=== PATIENT | male | born 1955 | race Caucasian/White ===

== ENCOUNTER → 2018-04-10 08:44 | Outpatient (CLI) | payer MEDICARE, SELFPAY ==
[2018-04-10 10:01] LABS: CREATININE 1.19 mg/dL (0.70-1.30); Cholesterol 309 mg/dL (50-200); HDL Cholesterol 31 mg/dL (40-60); LDL CHOLESTEROL 193 mg/dL (<100); Triglyceride 302 mg/dL (30-150)
== END ==
PROVIDERS: PCP Nurse Practitioner; Visit Provider Nurse Practitioner
DX: R51 Headache (principal); I25.10 Atherosclerotic heart disease of native coronary artery without angina pectoris; Z13.220 Encounter for screening for lipoid disorders
CPT/HCPCS: 36415; 80061; 83721; 82565

== ENCOUNTER 2019-03-22 09:58 | Outpatient (CLI) | payer MEDICARE, SELFPAY ==
[2019-03-22 10:44] LABS: HGB 14.3 g/dL (13.5-17.5); Mean Corp. HGB Concentration 34.9 g/dL (32.0-36.0); Mean Corpuscular Volume 88.9 fL (80-95); Mean Platelet Volume 11.1 fL (8.0-11.0); Platelet Count 170 x1000/uL (130-400); RBC 4.61 m/cumm (4.50-6.00); RBC Distribution Width 12.4 % (11.8-14.1); White Blood Cell Count 8.18 k/cumm (4.4-10.8)
[2019-03-22 12:46] LABS: ALT 23 U/L (12-78); AST 19 U/L (15-37); Albumin 4.2 g/dL (3.4-5.0); Alkaline Phosphatase 90 U/L (46-116); BUN 19 mg/dL (7-18); Bilirubin, Total 0.4 mg/dL (0.2-1.0); Calcium 9.3 mg/dL (8.5-10.1); Calculated LDL 192 mg/dL; Chloride 103 mmol/L (98-107); Cholesterol 264 mg/dL (50-200); Glucose 99 mg/dL (70-100); HDL Cholesterol 31 mg/dL (40-60); Potassium 4.9 mmol/L (3.5-5.1); Sodium 140 mmol/L (136-145); Total Protein 7.1 g/dL (6.4-8.2); Triglyceride 209 mg/dL (30-150)
== END 2019-03-22 10:18 ==
PROVIDERS: PCP Nurse Practitioner; Visit Provider Nurse Practitioner
DX: E78.00 Pure hypercholesterolemia, unspecified (principal); F32.9 Major depressive disorder, single episode, unspecified; F41.9 Anxiety disorder, unspecified; J44.9 Chronic obstructive pulmonary disease, unspecified; F17.200 Nicotine dependence, unspecified, uncomplicated
CPT/HCPCS: 36415; 80053; 80061; 83721; 85027

== ENCOUNTER 2019-09-19 11:36 | Outpatient (CLI) | payer MEDICARE, SELFPAY ==
--- NOTE | 2019-09-19 12:05 | DI.RAD_ITS ---
EXAM: XR LUMBAR SPINE COMPLETE INDICATION: pain M54.9 DORSALGIA. COMPARISON: LUMBAR SPINE COMPLETE from 05/17/2011 TECHNIQUE: 2D digital imaging was performed. FINDINGS: There is a left convex scoliosis of the lumbar spine. There is no spondylolysis or spondylolisthesis . There is disc space narrowing at L3-L4. Endplate osteophytes are seen from L2-L3 through L5-S1. Degenerative changes of the facets are seen in the lower lumbar spine. No acute fracture or subluxat ion is seen in the lumbar spine. There is atherosclerosis of the abdominal aorta. IMPRESSION: Moderate degenerative changes of the lumbar spine.
[2019-09-19 12:40] LABS: HCT 39.3 % (40.0-50.0); HGB 13.5 g/dL (13.5-17.5); Mean Corp. HGB Concentration 34.4 g/dL (32.0-36.0); Mean Corpuscular Hemoglobin 31.3 pg (27.0-33.0); Mean Platelet Volume 10.6 fL (8.0-11.0); Platelet Count 233 x1000/uL (130-400); RBC 4.32 m/cumm (4.50-6.00); RBC Distribution Width 12.4 % (11.8-14.1); White Blood Cell Count 6.84 k/cumm (4.4-10.8)
[2019-09-19 14:31] LABS: ALT 24 U/L (16-63); AST 30 U/L (15-37); Albumin 4.1 g/dL (3.4-5.0); Alkaline Phosphatase 112 U/L (46-116); Anion Gap 7.4 mmol/L (3-11); BUN 12 mg/dL (7-18); Bilirubin, Total 0.4 mg/dL (0.2-1.0); CO2 30.6 mmol/L (21.0-32.0); Calcium 9.1 mg/dL (8.5-10.1); Chloride 104 mmol/L (98-107); Glucose 113 mg/dL (74-106); Potassium 5.2 mmol/L (3.5-5.1); Sodium 142 mmol/L (136-145); TSH (W/Ref FT4) 1.58 uIU/mL (0.36-3.74); Total Protein 6.8 g/dL (6.4-8.2); Vitamin B12 227 pg/mL (193-986)
== END 2019-09-19 11:56 ==
PROVIDERS: PCP Nurse Practitioner; Visit Provider Nurse Practitioner
DX: M54.5 Low back pain (principal); M51.36 Other intervertebral disc degeneration, lumbar region; M47.816 Spondylosis without myelopathy or radiculopathy, lumbar region; I10 Essential (primary) hypertension; R63.4 Abnormal weight loss; F17.200 Nicotine dependence, unspecified, uncomplicated
CPT/HCPCS: 36415; 80053; 85027; 72110; 82607; 84443

== ENCOUNTER 2019-09-20 06:58 | Outpatient (CLI) | payer MEDICARE, SELFPAY ==
--- NOTE | 2019-09-20 07:57 | ETT_ITS ---
APPROVED REPORT Exam: Exercise Treadmill Patient Location: Out-Patient Room/Bed: Stress Nurse: Samantha Gonzalez RN BMI: 20.77 Baseline Rhythm: Sinus Rhythm Indications: Patient reports he has had SOB with activity for years now which has recently (over the last month) gotten worse and is now associated with dizziness. Medical History Medical History: Depression, Anxiety, PTSD, Gerd, ADD, Lung Nodules. Cardiac Medications: Atorvastatin, Metoprolol Succinate, Prazosin. Allergies: No known drug allergies Cardiac Risk Factors: FHX of CAD, Hyperlipidemia, COPD, Smoking Previous Cardiac Procedures: None Pretest Chest Pain Characteristics: None Exercise History: Sedentary Physical Disabilities: None Lung Sounds: Clear to auscultation Heart Sounds: Regular Stress Test Details Test: Exercise stress testing was performed using a Chay protocol. Rest Stress HR Max Heart Rate (APMHR): 155 bpm Resting HR Supine: 74 bpm Target HR (85% APMHR): 131 bpm Resting HR Standin bpm Max HR Achieved: 152 bpm % of APMHR: 98 HR response to stress: Normal HR response to stress BP Resting BP Supine: 110/70 mmHg Resting BP Standin/64 mmHg Max BP: 138/80 mmHg BP response to stress: Blunted BP response during exercise, normal BP response during recovery ECG Resting ECG: Sinus Rhythm ST Change: Normal Ectopy: Rare PAC's and Rare PVC's Stress ECG: Sinus Tachycardia ST Change: Normal Arrhythmia: None Recovery ECG: Sinus Rhythm Recovery ST Change: Normal Recovery Arrhythmia: None Clinical Reason for Termination: Dyspnea Stress Symptoms: None Exercise duration: 9 min15 sec Highest Stage Achieved: Stage 4: 4.2 mph at 16% grade. Exercise capacity: 10.55 METs Functional Capacity: Average Capacity Stress ECG Conclusion 1. She exercised for 9 minutes (10.5 METS). Exercise was stopped due to dyspnea. 2. Patient reached 98% of his predicted heart rate. Rate-pressure product was 16,000 3. There is no evidence of ischemia at this level of stress. 4. The Connor Score (8) estimates an annual cardiovascular mortality of 0% and a five year survival of 95%. Using the Cononr Score there is a low probability of any angiographic coronary disease. Protocol Used: Chay Protocol Stress Test Summary STAGE Time (mins) Speed (mph) Grade (%) HR BP SYMPTOMS METS Supine 74 110/70 Standing 89 108/64 1 3 1.7 10 105 106/60 4.6 2 6 2.5 12 118 108/60 7 3 9 3.4 14 141 110/64 10.2 4 12 4.2 16 12.9 5 15 5.0 18 17.2 1 min recovery 132 132/60 3 min recovery 98 138/80 6 min recovery 85 110/70
== END 2019-09-20 07:18 ==
PROVIDERS: PCP Nurse Practitioner; Visit Provider Nurse Practitioner
DX: R06.02 Shortness of breath (principal); R06.09 Other forms of dyspnea; R42 Dizziness and giddiness; I10 Essential (primary) hypertension; E78.00 Pure hypercholesterolemia, unspecified; F41.9 Anxiety disorder, unspecified; F17.220 Nicotine dependence, chewing tobacco, uncomplicated; Z82.49 Family history of ischemic heart disease and other diseases of the circulatory system
CPT/HCPCS: 93016; 93018; 93017

== ENCOUNTER → 2019-10-11 11:28 | Outpatient (BNVA) | payer MEDICARE, SELFPAY | PROVIDERS: PCP Nurse Practitioner; Referring Provider Nurse Practitioner; Visit Provider Physical Therapy Assistant | DX: Z12.11 Encounter for screening for malignant neoplasm of colon (principal); Z86.010 Personal history of colon polyps; J44.9 Chronic obstructive pulmonary disease, unspecified; F17.210 Nicotine dependence, cigarettes, uncomplicated ==

== ENCOUNTER 2019-10-12 01:48 | Outpatient (CLI) | payer MEDICARE, SELFPAY ==
--- NOTE | 2019-10-12 10:28 | DI.US_ITS ---
APPROVED REPORT EXAM: Comprehensive 2D, Doppler, and color-flow Echocardiogram [place] Tender Helper: Kary Chamorro RDCS (AE) Indications: SANCHEZ Conclusion Normal left ventricular wall thickness and chamber size. Estimated ejection fraction is 55 to 60%. No segmental wall motion abnormalities No chamber enlargement No structural or valvular abnormalities noted Wall motion Left Ventricle The left ventricle is grossly normal size. Left ventricular systolic function is normal. There is nor mal left ventricular wall thickness. There is normal LV segmental wall motion. Stage I diastolic dysf unction LVEF is 55-60%. Right Ventricle The right ventricle is normal size. Right ventricular systolic function could not be assessed. Atria The left atrium size is normal. The right atrium size is normal. Aortic Valve The aortic valve is not well visualized. Aortic valve is probably trileaflet. There is no aortic valv ular stenosis. No aortic regurgitation is present. Mitral Valve The mitral valve is normal in structure. Trace mitral regurgitation. Tricuspid Valve Tricuspid valve is grossly normal in structure and function. Mild tricuspid regurgitation. Great Vessels Aortic root is normal in size. Pericardium No pericardial effusion. 2D Dimensions IVSD d PLAX 0.66 cm M: 0.6-1.2 LV Vol A2C d MOD 98.5 mL LVPW d PLAX 0.68 cm M: 0.6 - 1.2 LV Vol A4C d MOD 83.3 mL LVID d PLAX 4.48 cm M: 4.2 - 5.8 LA vol/ BSA A2C s A-L 12.0 mL/m2 LVDs 3.20 cm M: 2.5 - 4.0 LA vol/ BSA A4C s A-L 14.9 mL/m2 Ao Root d 3.14 cm M: 3.1 - 3.7 LA Vol/ BSA Biplane s A-L 14.2 mL/m2 RA Area A4C 8.82 cm2 LA Area A4C s MOD 12.17 cm2 RA Vol/ BSA A4C s A-L 10.2 mL/m2 LA Area A2C s MOD 10.25 cm2 LV EF Teichholz 53.9 % LV EF A4C MOD 60.6 % LVEF (Ferrer's) 58.52 % M: 52 - 72 LV EF A2C MOD 57.9 % LV Volume 70.02 mL M: 62 - 150 LV EF Biplane MOD 58.5 % LV Volume Index 37.24 mL/m2 M: 34 - 74 LV Vol Biplane MOD 91.5 mL FS 27.65 % LV Diastology E/A Ratio 1.0 MV E Vmax 0.67 (0.4-1.3 m/s) MV A Vmax 0.70 (0.4-1.3 m/s) MV E/A Ratio 0.92 Aortic Valve LVOT Area 3.00 cm2 AoV Area Vmax 2.15 cm2 LVOT Vmax 0.77 m/s AoV Area/ BSA (Vmax) 1.14 cm2/m2 LVOT Mean Daren. 0.51 m/s SAMANTHA Mean Daren. 2.11 cm2 LVOT Peak Grad 2.4 mmHg SAMANTHA Mean Daren. Index 1.12 cm2/m2 LVOT Mean Grad 1.2 mmHg LVOT VTI 0.170 m LVOT Diam s 1.95 cm (M/F) 1.5-2.5 AoV Vmax 1.08 (0.5-1.3 m/s) Velocity Ratio 0.71 AoV Mean Daren. 0.72 m/s AoV Peak Grad 4.6 mmHg LVOT SV 51.10 mL AoV Mean Grad 2.4 (<5 mmHg) AoV VTI 0.198 (0.18-0.25 m) AoV Area VTI 2.59 (2.5-4.5 cm2) AoV Area/ BSA (VTI) 1.37 cm/m2 Mitral Valve MV DT 228 (160-240 msec) MV PHT 66 msec MV Area PHT 3.33 cm2 MV VTI 0.227 m MV Area VTI 2.26 (4.0-6.0 cm2) Pulmonary Valve PV Vmax 0.69 (0.5-1.5 m/s) RVOT Peak Gr. 0.84 mmHg PV Peak Grad 1.9 mmHg RVOT Mean Gr. 0.50 mmHg PV Mean Grad 1.1 mmHg RVOT VTI 0.110 m PV VTI 0.140 m RVOT Vmax 0.46 m/s Tricuspid Valve TR Peak Grad 23.9 mmHg TR Vmax 2.44 m/s RA Pressure 3.00 mmHg RVSP (TR) 26.9 mmHg
== END 2019-10-12 02:08 ==
PROVIDERS: PCP Nurse Practitioner; Visit Provider Nurse Practitioner
DX: R06.09 Other forms of dyspnea (principal); F17.200 Nicotine dependence, unspecified, uncomplicated; F41.9 Anxiety disorder, unspecified; F32.1 Major depressive disorder, single episode, moderate
CPT/HCPCS: 93306

== ENCOUNTER 2019-11-01 06:03 | Day surgery (SDC) | payer MEDICARE, SELFPAY ==
[2019-11-01 06:33] VITALS: BP 111/73; PULSE 93; RESP 16; TEMP 36.4; O2SAT 98
[2019-11-01] MEDS: Lactated Ringers 1,000 ML 80 ML IV (06:50)
--- NOTE | 2019-11-01 07:49 | BOWEL_PTH ---
PATIENT: Robby Mirza JR LOC: [facility] U#:[id number] AGE/SX: 63/M ROOM: RE11/01/[address]: Sharlene Rubalcava : 1955 BED: DIS: 11/01/2019 SPEC #: [id number] RECD: 11/01/19 12:32 STATUS: KORTNEY REQ #: [id number] VINEET: 11/01/19 07:[address]: Sharlene Rubalcava DEPT: Surgical Specimen RECD BY: Maren Robert ENTERED: 11/01/19 12:33 SP TYPE: Bowel OTHR DR: Renae Portillo APRN Tissues: 1 - BIOPSY BOWEL 2 - BIOPSY BOWEL 3 - BIOPSY BOWEL Procedures: GROSS AND MICRO LEVEL 4 Comments: [id number]
--- NOTE | 2019-11-01 08:30 | W.PM.DSUDISC ---
Discharge Plan Disposition Patient Disposition: HOME Condition: Good Discharge Details Reason For Visit: colon scope Attending Provider: Sharlene Rubalcava Primary Care Provider: Renae Portillo Home Meds and New Rx's Prescriptions: Continued dextroamphetamine-amphetamine [Adderall] 30 mg tablet 30 mg PO BID MDD 60 Qty: 60 RF: 0 prazosin 1 mg capsule See Rx Instructions PO QHS Qty: 120 RF: 2 clonazepam 1 mg tablet 1 mg PO HS Qty: 90 RF: 1 lactulose 10 gram/15 mL (15 mL) solution 20 gm PO BID PRN (Reason: constipation) Qty: 750 RF: 0 omeprazole 40 mg capsule,delayed release(DR/EC) 40 mg PO DAILY Qty: 30 RF: 4 albuterol sulfate 2.5 MG/3 ML solution for nebulization 1 vial Inhalation Q4H PRN Qty: 120 RF: 0 fluticasone propion-salmeterol [Advair Diskus] 1 EACH blister with device 1 puff Inhalation BID Qty: 1 RF: 12 Arnuity Ellipta 200 MCG blister with device 200 mcg Inhalation BID RF: 0 albuterol sulfate [ProAir HFA] 8.5 GM HFA aerosol inhaler 2 puff Inhalation Q4H PRN Qty: 3 RF: 3 Metoprolol Succinate 50 MG TAB.ER.24H 50 mg PO DAILY Qty: 30 RF: 3 calcium carbonate [Tums] 200 MG tablet,chewable 1 - 2 tab PO PRN PRNRF: 0 atorvastatin 40 mg tablet 40 mg PO HS RF: 0 Discontinued polyethylene glycol 3350 17 gram/dose powder 238 gm PO ONCE Qty: 238 RF: 0 bisacodyl [Dulcolax (bisacodyl)] 5 mg tablet,delayed release (DR/EC) 5 mg PO ONCE Qty: 4 RF: 0 Discharge Instructions Instructions: High Fiber Diet (GEN) Additional Instructions: Findings: mult polyps no ASA/NSAID's for 14 days Follow up: will send a letter in 2-3 wks w/ pathology results and when to repeat the scope Please call if you develop: fevers >101.5 Nausea or Vomiting Abdominal pain that is not transient DAY SURGERY UNIT POST COLONOSCOPY INSTRUCTIONS 1. Because there will be medication in your system for the next 24 hours, you may feel a little sleepy. Your coordination will be affected. Therefore: a. Do not drive or operate dangerous equipment for 24 hours. b. Do not drink alcohol beverages for 24 hours (not even beer). c. Plan to go home and rest for the day. 2. Generally there are no restrictions on your activity after a day or so has gone by, but you may feel a bit fatigued for a few days. 3 After you arrive home you may have a light meal and return to a normal diet as you can tolerate it without feeling sick to your stomach. 4. After surgery, you may feel pain or discomfort. This should be only transient, but if it persists please contact your doctor. 5. If there are any questions regarding the findings of your procedure, please feel free to contact your doctor. 6. If you are unable to contact your doctor with a problem, contact the hospital at [phone]. 7. Continue all your regular medications unless directed otherwise. I understand the above instructions and have no questions. Signature of Patient or Responsible Adult Escort Date/Time Name of Responsible Adult Escort Signature of Nurse Date/Time Activity:: No lifting over 20 pounds or strenuous activity x24 hours Diet:: Small light meals x24 hours Discharge Orders Discharge Orders: Discharge Order (Routine); Ordered 11/01/19 Ordered By: Sharlene Rubalcava DS: Diagnosis Discharge Diagnosis (1) Gastroesophageal reflux disease: Status: Acute (2) Colorectal polyps: Status: Acute
--- NOTE | 2019-11-01 08:36 | W.COLOREPORT ---
Date of service: 11/01/19 Time of Service: 08:36 Colonoscopy Report Date of procedure: 11/01/19 Pre-op diagnosis general: hx of polyps Post-op diagnosis procedure note: other (mult polyps ) Procedure: CE w/ mult polypectomy Surgeon: Sharlene Rubalcava Anesthesia proc note operative: GETA Estimated blood loss (mL): 2 Pathology: other Complications: None Disposition: same day Prep: Miralax/Dulcolax Retraction Time: 15 mins Procedure Description: After informed consent was obtained the patient was taken to the procedure room and placed in a left decubitous position. Monitors were applied and a time out was done. The patients name, date of , procedure, allergies to medications and metal in their body was reviewed. The patient was then sedated. Once sedated and comfortable a rectal exam was done. External exam was grade II ext hemorrhoids . Internal exam revealed a normal sphincter tone and no palpable masses and grade II internal hemorrhoids. The prostate none The scope was then introduced and retrofelexed. The scope was then advanced to the cecum w/out difficulty. The TI and appendiceal orifice were identified. The prep was good. The scope was then slowly retracted over 15 minutes back into the rectum. Polyps were removed at rectum- x9. polyps in sigmoid at 30cm- x1 and 20cm x4. These are removed w/ hot focept. . The scope was removed and the patient was woken up and taken back to Same day surgery in stable condition. The patient tolerated the procedure well and there were no immediate complications. Follow up: The patient should follow up in [3-5 years- path pd unless they develop changes in bowel habits or other new gastrointestinal complaints.
[2019-11-01 09:04] VITALS: BP 101/60; PULSE 83; RESP 16; TEMP 36.4; O2SAT 98
== END 2019-11-01 09:16 | disposition home or self-care (01) ==
PROVIDERS: PCP Nurse Practitioner; Visit Provider Surgery
PROC: 0DJD8ZZ Inspection of Lower Intestinal Tract, Via Natural or Artificial Opening Endoscopic (ICD-10-PCS; CPT 45378; principal; 2019-11-01 07:30)
DX: Z12.11 Encounter for screening for malignant neoplasm of colon (principal); K63.5 Polyp of colon; K62.1 Rectal polyp; Z87.19 Personal history of other diseases of the digestive system; J44.9 Chronic obstructive pulmonary disease, unspecified; K21.9 Gastro-esophageal reflux disease without esophagitis
CPT/HCPCS: 45384; 88305; J2001; J2704

== ENCOUNTER 2020-02-08 11:55 | Outpatient (CLI) | payer MEDICARE, SELFPAY ==
[2020-02-09 02:23] LABS: COVID-19 RT-PCR UVMMC Result Negative (Negative)
== END 2020-02-08 12:15 ==
PROVIDERS: PCP Nurse Practitioner; Visit Provider Family Medicine
DX: R05 Cough (principal)
CPT/HCPCS: U0003

== ENCOUNTER 2020-11-13 18:37 | Outpatient (REF) | payer MEDICARE, SELFPAY ==
[2020-11-14 14:50] LABS: COVID-19 RT-PCR UVMMC Result Negative (Negative)
== END 2020-11-13 18:38 | disposition home or self-care (01) ==
LOC: LBN 18:37
PROVIDERS: PCP Nurse Practitioner; Visit Provider Family Medicine
DX: Z20.822 Contact with and (suspected) exposure to COVID-19 (principal); J02.9 Acute pharyngitis, unspecified
CPT/HCPCS: U0003

== ENCOUNTER 2021-02-25 13:51 | Outpatient (CLI) | payer MEDICARE, SELFPAY ==
--- NOTE | 2021-02-25 13:45 | RT.EKG_ITS ---
APPROVED REPORT Exam: Resting ECG Reason for Exam: Baseline for therapeutic drug monitoring Patient Location: O HR:103 bpm ECG Measurements Heart Rate 103 AXIS AR 126 P 79 QRSd 96 QRS 87 QT 334 T 57 QTc 437 Conclusion Sinus tachycardia...rate> 99 Probable left atrial enlargement...P >50mS, <-0.10mV V1
== END 2021-02-25 13:52 | disposition home or self-care (01) ==
LOC: DI.KIM 13:54
PROVIDERS: PCP Nurse Practitioner; Visit Provider Nurse Practitioner
DX: Z51.81 Encounter for therapeutic drug level monitoring (principal)
CPT/HCPCS: 93010

== ENCOUNTER → 2021-05-28 11:12 | Outpatient (CLI) | payer MEDICARE, SELFPAY ==
--- NOTE | 2021-05-28 10:45 | DI.RAD_ITS ---
Exam(s) XR RIBS BI INCLUDE CHEST EXAM: XR RIBS BI INCLUDE CHEST CLINICAL HISTORY: pain w/inspiration after metal tool hit chest, PAINFUL RESPIRATION, BLUNT TECHNIQUE: 2D digital imaging was performed. COMPARISON: CR CHEST 2 VIEWS PA,LAT from 03/16/2017 CR CHEST 2 VIEWS PA,LAT from 03/16/2017 FINDINGS: MEDIASTINUM: Normal. HEART: Normal. PULMONARY VASCULATURE: Normal. LUNGS: Clear. PLEURAL SPACE: No pleural effusion or pneumothorax. BONE:Normal. BILATERAL RIBS: Normal. OTHER FINDINGS:Normal. IMPRESSION: 1. No acute pulmonary findings. 2. Unremarkable ribs. DATA REPOSITORY: RADIATION DOSE DELIVERED:
--- OUTSIDE RECORDS SUMMARY | 2021-05-28 11:17 | XMS_ITS ---
:1955 Author Care Team Providers Name Role Phone MEGHNA WELLS Primary Care Provider [phone] Allergies Code Code System Name Reaction Severity Status Onset NKDA ? Medications Name Status Start Date Stop Date ? ? Advair Diskus 500 mcg-50 mcg/dose Completed ? 07/26/2018 powder for inhalation Arnuity Ellipta 200 mcg/actuation powder for inhalation Complete d 07/25/2017 08/08/2017 1 (one) Inhalation: bid - twice daily atorvastatin 40 mg tablet Active ? Not av ailable azithromycin 250 mg tablet Active ? Not a vailable azithromycin 500 mg tablet Completed 02/13/201602/26 1 (one) Tablet: daily Bactrim DS 800 mg-160 mg tablet Completed 01/02/2016 01/12/2016 1 (one) Tablet: bid - twice daily bisacodyl 5 mg tablet,delayed release Active ? Not available TK PER COLONOSCOPY INSTRUCTIONS clonazepam 1 mg tablet Active ? Not avail able TAKE 1 TABLET BY MOUTH AT BEDTIME dextroamphetamine-amphetamine 10 Completed ? 01/25/2018 mg tablet dextroamphetamine-amphetamine 20 Active ? Not available mg tablet dextroamphetamine-amphetamine 30 Active ? Not available mg tablet famciclovir 500 mg tablet Completed ? 2017 Incruse Ellipta 62.5 mcg/actuation powder for inhalation Complet ed 02/13/2016 03/26/2016 1 (one) Inhalation: daily lactulose 10 gram/15 mL oral solution Active ? Not available TK 30ML PO BID PRF CONSTIPATION levofloxacin 500 mg tablet Active ? Not a vailable methylprednisolone 4 mg tablets in Active ? Not available a dose pack metoprolol succinate ER 50 mg Active ? No t available tablet,extended release 24 hr nicotine 21mg/24hr-14mg/24hr-7mg/24hr daily transderm patches,sequentl Completed 02/13/2016 04/16/2016 1 (one) Kit Kit: as directed omeprazole 40 mg capsule,delayed release Active ? Not available TAKE 1 CAPSULE BY MOUTH ONCE DAILY oxycodone-acetaminophen 5 mg-325 mg tablet Active ? Not available TK 1 T PO TID PRN P. MDD 3 TS polyethylene glycol 3350 17 Active ? Not available gram/dose oral powder prazosin 1 mg capsule Active ? Not availa ble prednisone 10 mg tablet Active ? Not avai lable prednisone 20 mg tablet Completed ? 01/26/20 18 Spiriva with HandiHaler 18 mcg and Completed ? 09/01/2020 inhalation capsules Trelegy Ellipta 100 mcg-62.5 mcg-25 mcg powder for inhalation Ac tive ? Not available Inhale 1 puff every day by inhalation route. Ventolin HFA 90 mcg/actuation aerosol inhaler Active ? Not available INHALE 2 PUFFS BY MOUTH EVERY 4 HOURS NEEDED Vyvanse 40 mg capsule Completed ? 01/25/2018 Vyvanse 60 mg capsule Completed ? 01/25/2018 Problems Name Status Onset Date Source ? Smoker Active 07/26/2018 ? Sinusitis Active ? History Chronic Obstructive Lung Disease Active ? History Procedure by Method Active ? History Procedures Date Name Performed by ? 01/25/2018 LDCT, Chest, for Lung Cancer [facility] Radiology (Internal) Screening [address], [place] [id number] (Work Place) 07/26/2018 LDCT, Chest, for Lung Cancer [facility] Radiology (Internal) Screening [address] [place] [address] (Work Place) 06/04/2019 LDCT, Chest, for Lung Cancer [facility] Radiology (Internal) Screening [address] [place] [address] (Work Place) 08/08/2019 LDCT, Chest, for Lung Cancer [facility] Radiology (Internal) Screening [address] [place] [address] (Work Place) 06/27/2020 LDCT, Chest, for Lung Cancer [facility] Radiology (Internal) Screening [address], [place] [id number] (Work Place) 09/01/2020 LDCT, Chest, for Lung Cancer [facility] Radiology (Internal) Screening [address], [place] [id number] (Work Place) Results Lab Results Date Name Specimen Result Interpretation Description Value Range Status Address ? 08/25/2018 Lipid S High Chol 284 50-200 Final [place] Panel, mg/dL mg/dL Hospital L ab Serum (Internal) : [address] ? ? S High Trig 229 10-150 Final [place] [facility] mg/dL mg/dL Hospital [facility] (Internal) : [address] ? ? S Low Hdl 35 mg/dL 40-60 [place] mg[facility]dL [facility] (Internal) : [address] ? ? S High Ldl 203 0-130 Final [place] [facility] mg/dL mg/dL Hospital L [facility] (Internal) : [address] 08/25/2018 CMP, Serum S - g/r 92 mg/dL 74-106 Final [place] or Plasma mg/dL Hospita l Lab (Internal) : [address] ? ? S - Bun 17 mg/dL 9-20 Final [place] mg/dL [facility] L [facility] (Internal) : [address] ? ? S - Crea 1.00 0.66-1.25 [place] mg/dL mg/dL Hospital L [facility] (Internal) : [address] ? ? S - Ca 9.4 8.4-10.2 Final [place] mg/dL mg/dL Hospital L [facility] (Internal) : [address] ? ? S - Na 140 137-145 Final [place] mmol/L mmol/L Hospital L [facility] (Internal) : [address] ? ? S - K 4.3 3.5-5.1 Final [place] mmol/L mmol/L Hospital L ab (Internal) : [address] ? ? S - Cl 101 98-107 Final [place] mmol/L mmol/L Hospital L [facility] (Internal) : [address] ? ? S - Tco2 29.0 22.0-30.0 [place] mmol/L mmol/L Hospital L ab (Internal) : [address] ? ? S - Tp 7.1 g/dL 6.3-8.2 Final [place] g/dL Hospital L [facility] (Internal) : [address] ? ? S - Alb 4.3 g/dL 3.5-5.0 Final [facility]ry g/dL Hospital L ab (Internal) : [address] ? ? S - Tbil 0.6 0.2-1.3 Final [facility] ntry mg/dL mg/dL Hospital L ab (Internal) : [address] ? ? S - Alp 66 U/L 38-126 Final [place] try U/L Hospital L ab (Internal) : [address] ? ? S - Alt 21 U/L 21-72 U/L Final [facility] ([facility] Hospital L ab (Internal) : [address] ? ? S - Ast 27 U/L 17-59 U/L Final [facility] ([facility] Hospital L ab (Internal) : [address] 01/25/2018 Creatinine S - Crea 1.00 0.66-1.25 Final [facility] , Serum or mg/dL mg/dL Hospit al Lab Plasma (Internal) : [address] 01/25/2018 Creatinine S - Crea 1.00 0.66-1.25 Final [facility] , Serum or mg/dL mg/dL Hospit al Lab Plasma (Internal) : [address] Past Encounters 09/01/2020 Chronic Obstructive Lung Disease; Smoker Lizzette Suh MD: [address] [place] [address], Ph. Social History Tobacco Smoking Status Current Every Day Smoker Notes: 1 pack every 3 days Vaccine List Vaccine Type influenza, high-dose, quadrivalent 10/02/2020?0.7 mL influenza, injectable, quadrivalent 07/19/2017 07/24/2018 influenza, seasonal, injectable, preserv ative free 07/19/2016?0.5 mL influenza, trivalent, adjuvanted 07/25/2019 pneumococcal conjugate PCV 13 03/18/2016 08/08/2019?0.5 mL pneumococcal polysaccharide PPV23 05/06/2014 09/01/2020?0.5 mL Tdap 03/28/2019?0.5 mL Plan of Care Reminders Provider Appointments None ? ? recorded. Lab None ? ? recorded. Referral None ? ? recorded. Procedures None ? ? recorded. Surgeries None ? ? recorded. Imaging None ? ? recorded. Vitals 09/01/2020 09:30AM Follow Up 30 Weight Blood Pressure 71.4 kg 120/70 mm[Hg] 08/08/2019 09:00AM Follow Up 30 Weight Blood Pressure 70.5 kg 118/70 mm[Hg] 07/26/2018 09:30AM Follow Up 30 Height Weight BMI Blood Pressure 182.88 cm 76.6 kg 22.9 kg/m2 110/70 mm[Hg] 01/25/2018 09:30AM Follow Up 30 Height Weight BMI Blood Pressure 182.88 cm 74.39 kg 22.2 kg/m2 110/60 mm[Hg] 07/25/2017 Height Weight Blood Pressure 182.88 cm 74.11 kg 110/70 mm[Hg] 06/20/2017 Weight Blood Pressure 70.82 kg 100/70 mm[Hg] 11/25/2016 Height Weight Blood Pressure 180.34 cm 72.12 kg 110/70 mm[Hg] 07/19/2016 Height Weight Blood Pressure 182.88 cm 74.84 kg 110/70 mm[Hg] 03/26/2016 Weight Blood Pressure 73.48 kg 110/70 mm[Hg] 02/13/2016 Height Weight Blood Pressure 177.8 cm 75.55 kg 112/60 mm[Hg] 02/04/2016 Height Weight Blood Pressure 177.8 cm 76.2 kg 118/74 mm[Hg] 01/02/2016 Height Weight Blood Pressure 177.8 cm 77.11 kg 118/76 mm[Hg]
== END ==
PROVIDERS: PCP Nurse Practitioner; Visit Provider Nurse Practitioner
DX: R07.1 Chest pain on breathing (principal); S29.8XXA Other specified injuries of thorax, initial encounter; X58.XXXA Exposure to other specified factors, initial encounter
CPT/HCPCS: 71046; 71110

== ENCOUNTER 2021-05-28 11:31 | Outpatient (REF) | payer MEDICARE, SELFPAY ==
[2021-05-28 19:00] LABS: ALT 26 U/L (16-63); AST 22 U/L (15-37); Albumin 4.1 g/dL (3.4-5.0); Alkaline Phosphatase 92 U/L (46-116); Anion Gap 8.1 mmol/L (3-11); BUN 10 mg/dL (7-18); Bilirubin, Total 0.4 mg/dL (0.2-1.0); CO2 29.9 mmol/L (21.0-32.0); CREATININE 0.9 mg/dL (0.70-1.30); Calcium 9.3 mg/dL (8.5-10.1); Calculated LDL 160 mg/dL (<100); Chloride 104 mmol/L (98-107); Cholesterol 231 mg/dL (<200); Glucose 99 mg/dL (74-106); HDL Cholesterol 40 mg/dL (40-60); Potassium 4.7 mmol/L (3.5-5.1); Sodium 142 mmol/L (136-145); Total Protein 7.1 g/dL (6.4-8.2); Triglyceride 158 mg/dL (<150)
[2021-05-28 19:13] LABS: HCT 39.6 % (40.0-50.0); HGB 13.1 g/dL (13.5-17.5); MCH 30.8 pg (27.0-33.0); MCHC 33.1 % (32.0-36.0); MPV 11.4 fL (8.0-11.0); Platelet Count 206 10^3/uL (130-400); RBC 4.26 10^6/uL (4.36-5.78); RDW 12.3 % (11.8-14.1); RDW-SD 42.1 fL; WBC 8.76 10^3/uL (4.4-10.8)
== END 2021-05-28 11:32 | disposition home or self-care (01) ==
LOC: LBN 11:31
PROVIDERS: PCP Nurse Practitioner; Visit Provider Nurse Practitioner
DX: E78.00 Pure hypercholesterolemia, unspecified (principal); F17.200 Nicotine dependence, unspecified, uncomplicated; F32.9 Major depressive disorder, single episode, unspecified; J44.9 Chronic obstructive pulmonary disease, unspecified
CPT/HCPCS: 80053; 80061; 85027

== ENCOUNTER 2022-02-15 09:05 | Outpatient (CLI) | payer MEDICARE, SELFPAY ==
--- NOTE | 2022-02-15 09:00 | RT.EKG_ITS ---
APPROVED REPORT Exam: Resting ECG Reason for Exam: medication monitoring Patient Location: O HR:87 bpm ECG Measurements Heart Rate 87 AXIS NH 141 P 80 QRSd 100 QRS 79 QT 361 T 56 QTc 434 Conclusion Sinus rhythm...normal P axis, V-rate 60- 99
== END 2022-02-15 09:06 | disposition home or self-care (01) ==
LOC: DI.KIM 09:07
PROVIDERS: PCP Nurse Practitioner; Visit Provider Nurse Practitioner
DX: Z51.81 Encounter for therapeutic drug level monitoring (principal)
CPT/HCPCS: 93010

== ENCOUNTER 2022-02-23 02:45 | Outpatient (CLI) | payer MEDICARE, SELFPAY ==
[2022-02-23 09:12] LABS: HCT 41.3 % (40.0-50.0); HGB 14.4 g/dL (13.5-17.5); MCH 31.6 pg (27.0-33.0); MCHC 34.9 % (32.0-36.0); MCV 91 fL (80-95); MPV 10.9 fL (8.0-11.0); Platelet Count 189 10^3/uL (130-400); RBC 4.55 10^6/uL (4.36-5.78); WBC 8.16 10^3/uL (4.4-10.8)
[2022-02-23 09:50] LABS: ALT 26 U/L (16-63); AST 22 U/L (15-37); Alkaline Phosphatase 93 U/L (46-116); Anion Gap 4.8 mmol/L (3-11); BUN 24 mg/dL (7-18); Bilirubin, Total 0.3 mg/dL (0.2-1.0); CO2 31.2 mmol/L (21.0-32.0); Calcium 9.1 mg/dL (8.5-10.1); Calculated LDL 178 mg/dL (<100); Chloride 101 mmol/L (98-107); Cholesterol 252 mg/dL (<200); Glucose 104 mg/dL (74-106); HDL Cholesterol 40 mg/dL (40-60); Potassium 4.6 mmol/L (3.5-5.1); Sodium 137 mmol/L (136-145); Total Protein 7.5 g/dL (6.4-8.2); Triglyceride 174 mg/dL (<150)
== END 2022-02-23 02:46 | disposition home or self-care (01) ==
LOC: LBO 02:45
PROVIDERS: PCP Nurse Practitioner; Visit Provider Nurse Practitioner
DX: E78.00 Pure hypercholesterolemia, unspecified (principal); F17.210 Nicotine dependence, cigarettes, uncomplicated; F98.8 Other specified behavioral and emotional disorders with onset usually occurring in childhood and adolescence; J44.9 Chronic obstructive pulmonary disease, unspecified
CPT/HCPCS: 36415; 80053; 80061; 85027

== ENCOUNTER 2022-08-04 08:24 | Outpatient (CLI) | payer MEDICARE, SELFPAY ==
--- NOTE | 2022-08-04 08:15 | RT.EKG_ITS ---
APPROVED REPORT Exam: Resting ECG Reason for Exam: chest pain Patient Location: O HR:89 bpm ECG Measurements Heart Rate 89 AXIS UT 140 P 79 QRSd 104 QRS 82 QT 366 T 63 QTc 446 Conclusion Sinus rhythm...normal P axis, V-rate 50- 99 Borderline right axis deviation...QRS axis ( 81, 90) Minimal ST elevation, anterior leads...ST >0.10mV, V1-V4
== END 2022-08-04 08:25 | disposition home or self-care (01) ==
LOC: DI.KIM 08:26
PROVIDERS: PCP Nurse Practitioner; Visit Provider Nurse Practitioner
DX: R07.9 Chest pain, unspecified (principal)
CPT/HCPCS: 93010

== ENCOUNTER 2022-08-04 12:51 | Outpatient (CLI) | payer MEDICARE, SELFPAY ==
--- NOTE | 2022-08-04 09:13 | DI.RAD_ITS ---
Exam(s) XR LUMBAR SPINE COMPLETE EXAM: XR LUMBAR SPINE COMPLETE CLINICAL HISTORY: Low back pain s/p fall last week W19.XXXA, M54.50 TECHNIQUE: COMPARISON: No exams were available for comparison FINDINGS: Five views were obtained. There is a mild biconvex thoracolumbar scoliosis. There is disc space anthony rowing at L3-4 with sclerotic changes of the adjacent endplates particularly on the right, presumably related to the scoliotic deformity. There are moderate hypertrophic endplate changes throughout the lumbar spine. There is no evidence of acute fracture or dislocation. There is no evidence of spond ylolysis or spondylolisthesis. IMPRESSION: Moderate degenerative changes of the lumbosacral spine. RADIATION DOSE DELIVERED: Total DLP
== END 2022-08-04 13:11 ==
LOC: DI 12:54
PROVIDERS: PCP Nurse Practitioner; Visit Provider Nurse Practitioner
DX: M54.59 Other low back pain (principal); Z91.81 History of falling; M51.37 Other intervertebral disc degeneration, lumbosacral region; M41.26 Other idiopathic scoliosis, lumbar region
CPT/HCPCS: 72110

== ENCOUNTER 2022-08-13 00:23 | Outpatient (CLI) | payer MEDICARE, SELFPAY ==
--- NOTE | 2022-08-13 07:31 | DI.US_ITS ---
APPROVED REPORT EXAM: Comprehensive 2D, Doppler, and color-flow Echocardiogram Patient Location: Out-Patient [employer] Cutter: Kary Chamorro RDCS (AE) Indications: non exertional chest pain Other Information Study Quality: Fair. Technically limited study due to body habitus smoker. Conclusion Normal left ventricular wall thickness and chamber size. Estimated ejection fraction is 55%. Wall m otion appears normal Normal right ventricular size and systolic function Both atria are normal in size There is no structural or hemodynamically significant valvular disease Wall motion Left Ventricle The left ventricle is normal size. The left ventricular systolic function is normal. The left ventric ular ejection fraction is within the normal range. There is normal left ventricular wall thickness. N o segmental wall motion abnormalities were noted There is no ventricular septal defect visualized. LV EF is 55%. Right Ventricle The right ventricle is normal size. The right ventricular systolic function is normal. Atria The left atrium size is normal. The right atrium size is normal. The interatrial septum is intact wit h no evidence for an atrial septal defect. Aortic Valve The aortic valve is normal in structure. Aortic valve is trileaflet. There is no aortic valvular sten osis. No aortic regurgitation is present. Mitral Valve The mitral valve is normal in structure. No evidence of mitral valve stenosis. Trace mitral regurgita tion. Tricuspid Valve The tricuspid valve is normal in structure. There is no tricuspid valve stenosis. Trace tricuspid reg urgitation. Pulmonic Valve The pulmonary valve is normal in structure. There is no pulmonic valvular stenosis. There is no pulmo neeru valvular regurgitation. Great Vessels The aortic root is normal in size. Ascending aorta is not well visualized. Aortic arch is normal in c aliber. IVC is normal in size and collapses >50% with inspiration. Pericardium There is no pericardial effusion. 2D Dimensions IVSD d PLAX 0.65 cm M: 0.6-1.2 LV Vol A2C d MOD 132.0 mL LVPW d PLAX 0.67 cm M: 0.6 - 1.2 LV Vol A4C d MOD 81.5 mL LVID d PLAX 4.77 cm M: 4.2 - 5.8 LA vol/ BSA A4C s A-L 11.1 mL/m2 LVDs 3.45 cm M: 2.5 - 4.0 LA Area A4C s MOD 10.55 cm2 LV EF Teichholz 53.0 % LV EF A4C MOD 50.1 % LVEF (Ferrer's) 48.63 % M: 52 - 72 LV EF A2C MOD 50.6 % LV Volume 80.14 mL M: 62 - 150 LV EF Biplane MOD 48.6 % LV Volume Index 41.09 mL/m2 M: 34 - 74 SV 51.50 mL LV Vol Biplane MOD 105.9 mL SV Index 26.44 mL/m2 FS 27.20 % LV Diastology MV E' medial 0.086 (>0.07 m/s) E/A Ratio 0.9 LV E/e MED 6.00 (<14) MV E Vmax 0.51 (0.4-1.3 m/s) MV E' lateral 0.087 (>0.1 m/s) MV A Vmax 0.60 (0.4-1.3 m/s) LV E/e LAT 5.85 (<14) MV E/A Ratio 0.83 MV E/E' medial 6.00 MV E/E' lateral 5.89 Aortic Valve LVOT Vmax 0.79 m/s LVOT Mean Daren. 0.63 m/s LVOT Peak Grad 2.5 mmHg LVOT Mean Grad 1.7 mmHg LVOT VTI 0.169 m AoV Vmax 0.94 m/s Velocity Ratio 0.84 AoV Mean Daren. 0.66 m/s AoV Peak Grad 3.5 mmHg AoV Mean Grad 2.0 mmHg AoV VTI 0.194 m Mitral Valve MV DT 227 (160-240 msec) MV PHT 66 msec MV Area PHT 3.35 cm2 MV VTI 0.200 m Pulmonary Valve PV Vmax 0.99 (0.5-1.5 m/s) RVOT Peak Gr. 1.22 mmHg PV Peak Grad 4.0 mmHg RVOT Mean Gr. 0.80 mmHg PV Mean Grad 2.4 mmHg RVOT VTI 0.128 m PV VTI 0.192 m RVOT Vmax 0.55 m/s
== END 2022-08-13 00:43 ==
LOC: DI 00:27
PROVIDERS: PCP Nurse Practitioner; Visit Provider Nurse Practitioner
DX: R07.9 Chest pain, unspecified (principal)
CPT/HCPCS: 93306

== ENCOUNTER 2022-08-24 01:18 | Outpatient (CLI) | payer MEDICARE, SELFPAY ==
--- NOTE | 2022-08-24 13:00 | ETT_ITS ---
APPROVED REPORT Exam: Exercise Treadmill Patient Location: Out-Patient Room/Bed: Stress Nurse: Tania Villar RN Ordering Provider:MEGHNA TIANA, Contact Number: [phone] BMI: 21.96 Baseline Rhythm: Sinus Rhythm Indications: Chest pain Medical History Medical History: Current smoker, COPD, hyperlipidemia, anxiety/depression, PBD, SOB, SANCHEZ, ADHD, gerd Cardiac Medications: Atorvastatin, albuterol sulfate, dextroamphetamine, omeprazole Allergies: NKA Cardiac Risk Factors: Smoker, COPD, hyperlipidemia, family hx Previous Cardiac Procedures: NOne Pretest Chest Pain Characteristics: None Exercise History: Sedentary Physical Disabilities: None Lung Sounds: Clear to auscultation Heart Sounds: Regular Stress Test Details Test: Exercise stress testing was performed using a Chay protocol. Rest Stress HR Resting HR Supine: 70 bpm Max Heart Rate (APMHR): 152 bpm Resting HR Standin bpm Target HR (85% APMHR): 129 bpm Max HR Achieved: 146 bpm % of APMHR: 96 Recovery HR: 90 bpm HR response to stress: Normal HR response to stress BP Resting BP Supine: 128/72 mmHg Resting BP Standin/80 mmHg Max BP: 176/62 mmHg Recovery BP: 128/78 mmHg BP response to stress: Normal blood pressure response to stress. ECG Resting ECG: Sinus Rhythm Ectopy: None Stress ECG: Sinus Tachycardia ST Change: No significant ST segment changes noted Arrhythmia: Occasional PVCs Recovery ECG: Sinus Rhythm Recovery ST Change: No significant ST segment changes noted Recovery Arrhythmia: None Clinical Reason for Termination: Fatigue Stress Symptoms: General Fatigue Exercise duration: 9 min01 sec Highest Stage Reached: Stage 4: 4.2 mph at 16% grade. Exercise capacity: 10.17 METs Angina Score: None Connor Treadmill Score: 8.1 Rate Pressure Product: 10104 Stress ECG Conclusion 1. The resting electrocardiogram was within normal limits 2. Patient exercised on the Chay protocol and completed a workload of 10.17 METS, limited by fatigue . 3. Normal heart rate and blood pressure response to exercise. Patient achieved 96% of predicted hear t rate for age 4. There was no electrocardiographic evidence of myocardial ischemia 5. There were no significant dysrhythmias Connor Treadmill Score is 8.1 which is Low risk. Stress Test Summary STAGE Time (mins) Speed (mph) Grade (%) HR BP SpO2 SYMPTOMS METS Supine 70 128/72 98% Standing 84 116/80 98% 1 3 1.7 10 101 138/74 96% 4.5 2 6 2.5 12 115 150/68 94% 7 3 9 3.4 14 145 176/62 94% 10 1 min recovery 130 148/60 96% 3 min recovery 93 160/68 98% 6 min recovery 90 128/78 98% Patient denied symptoms throughout testing and recovery. Tolerating testing well.
== END 2022-08-24 01:38 ==
PROVIDERS: PCP Nurse Practitioner; Visit Provider Nurse Practitioner
DX: R07.9 Chest pain, unspecified (principal)
CPT/HCPCS: 93016; 93018; 93017

== ENCOUNTER 2022-10-13 01:32 | Outpatient (CLI) | payer MEDICARE, SELFPAY ==
[2022-10-13 12:56] LABS: ALT 24 U/L (16-63); AST 28 U/L (15-37); Calculated LDL 110 mg/dL (<100); Cholesterol 182 mg/dL (<200); HDL Cholesterol 44 mg/dL (40-60); Triglyceride 140 mg/dL (<150)
== END 2022-10-13 01:33 | disposition home or self-care (01) ==
LOC: LOS 01:32
PROVIDERS: PCP Nurse Practitioner; Visit Provider Nurse Practitioner
DX: E78.00 Pure hypercholesterolemia, unspecified (principal); K21.9 Gastro-esophageal reflux disease without esophagitis
CPT/HCPCS: 36415; 80061; 84450; 84460

== ENCOUNTER → 2023-02-16 08:51 | Outpatient (BNVA) | payer MEDICARE, SELFPAY | PROVIDERS: PCP Nurse Practitioner; Referring Provider Nurse Practitioner; Visit Provider Surgery | DX: R10.13 Epigastric pain (principal) | CPT/HCPCS: 99203 ==

== ENCOUNTER 2023-03-02 01:10 | Outpatient (CLI) | payer MEDICARE, SELFPAY ==
--- NOTE | 2023-03-02 06:45 | DI.US_ITS ---
Exam(s) US ABDOMEN LIMITED EXAM: US ABDOMEN LIMITED CLINICAL HISTORY: r/o cholelithiasis, dyspepsia, epigastric pain, R10.13 TECHNIQUE: Ultrasound abdomen performed using standard protocol. COMPARISON: CT CT CHEST LOW DOSE CA SCREENING from 08/10/2021 FINDINGS: LIVER: Normal size. Normalechogenicity. No focal liver lesions are seen.. GALLBLADDER: No evidence of cholelithiasis. No evidence of wall thickening. No pericholecystic fluid identified. SINGLETON'S SIGN: Negative. BILIARY SYSTEM: No intrahepatic or extrahepatic biliary ductal dilation. RIGHT KIDNEY: Normal size. No evidence of renal calculi. No evidence of hydronephrosis. No suspicious renal mass. No cyst identified. PANCREAS: Not visualized. Obscured by overlying bowel gas. ABDOMINAL AORTA AND IVC: Visualized portions normal caliber. ASCITES: None seen. IMPRESSION: Normal sonographic appearance of the right upper quadrant. DATA REPOSITORY:
== END 2023-03-02 01:30 ==
LOC: DI 01:10
PROVIDERS: PCP Nurse Practitioner; Visit Provider Surgery
DX: R10.13 Epigastric pain (principal)
CPT/HCPCS: 76705

== ENCOUNTER 2023-03-03 08:09 | Day surgery (SDC) | payer MEDICARE, SELFPAY ==
--- NOTE | 2023-03-02 19:09 | PDOC.DSDIS_ITS ---
Date of service: 03/03/23 Time of Service: 09:45 Discharge Plan Disposition Patient Disposition: Home Condition: Good Discharge Details Reason For Visit: EGD Attending Provider: Cornell Arnold Primary Care Provider: Renae Portillo Home Meds and New Rx's Prescriptions: Continued sildenafil 100 mg tablet See Rx Instructions PO DAILY PRN (Reason: sexual activity) Qty: 20 5RF Rx Instructions: 1/2 to 1 tab orally daily PRN; administer 30 minutes to 4 hours before activity atorvastatin 80 mg tablet 80 mg PO HS Qty: 90 3RF albuterol sulfate [ProAir HFA] 90 mcg/actuation HFA aerosol inhaler 2 puff Inhalation Q4H PRN Qty: 3 3RF calcium carbonate [Tums] 1 tab PO DIRECTED PRN (Reason: dyspepsia) pantoprazole 40 mg tablet,delayed release (DR/EC) 40 mg PO BID Qty: 180 1RF dextroamphetamine-amphetamine 20 mg tablet 20 mg PO BID MDD 40mg Qty: 60 0RF Rx Instructions: administer doses at least 4-6 hours apart triamcinolone acetonide 0.1 % cream 1 applic topical BID Qty: 80 1RF Trelegy Ellipta 100-62.5-25 mcg blister with device 1 inh inhalation DAILY albuterol sulfate 2.5 MG/3 ML solution for nebulization 1 vial Inhalation Q4H PRN Qty: 120 Rx Instructions: 0.083% Dr Suh Discharge Instructions Additional Instructions: Robby, We were able to complete your upper endoscopy today without any difficulty at all. Generally, it things look very good. I do not see any evidence of gastric ulcers. I do not even see much signs of gastric inflammation. There is some very mild irregularity where your esophagus connects to your stomach. This is an area called the GE junction. I did perform some biopsies here, as well as in the other parts of the upper gastrointestinal tract, but there is nothing that looks worrisome to the naked eye. I will be in touch when I have the results of the biopsies. 1. If tolerated, consume a soft, low fiber diet for 1-2 days. 2[address] Do not drive, drink alcohol, operate machinery, make critical decisions, or do activities that require coordination or balance for 24 hours. 3. You may experience a sore throat for 24 to 48 hours. You may use throat lozenges or gargle with warm salt water to relieve the discomfort. 4. Because air was put into your stomach during the procedure, you may experience some belching. 5. Go directly to the emergency room if you notice any of the following: Develop chills (warm to touch), or if you have a thermometer and your temperature is above 101 Difficulty breathing or difficultly swallowing Persistent vomiting Severe abdominal pain, other than gas cramps Severe chest pain Black, tarry stools Any bleeding ? exceeding one tablespoon 6. Call your physician if the site where your intravenous was started becomes r ed, swollen, painful, and warm to touch. 7. Your physician has reviewed your pre-procedure medications. Please continue to take those medications as previously ordered. You will be given specific info rmation/education regarding any changes to your medications before leaving. Activity:: Activity as Tolerated Diet:: As Tolerated Discharge Orders Discharge Orders: Discharge Order (Routine); Ordered 03/02/23 Ordered By: Cornell Arnold DS: Diagnosis Discharge Diagnosis (1) Dyspepsia: Status: Acute Asessment and Plan: Follow-up on biopsy results
--- NOTE | 2023-03-02 19:11 | W.PM.ENDDOP ---
Date of service: 03/03/23 Time of Service: 09:46 Endoscopy Report DATE OF PROCEDURE: 03/03/23 PRE-OP DIAGNOSIS: Dyspepsia POST-OP DIAGNOSIS: same PROCEDURE: EGD with biopsies SURGEON: Cornell Arnold ANESTHESIA TYPE: General:No Airway ESTIMATED BLOOD LOSS: 15 PATHOLOGY: other (Biopsies of duodenum, gastric antrum and body, GE junction) COMPLICATIONS: None DISPOSITION: same day INDICATIONS: Robby is a 67 year old male with longstanding GERD whose symptoms have become refractory to PPI therapy FINDINGS: Mild irregularity of the Z-line at 40 cm, compromising less than 25% of the lumen, and extending less than 0.5 cm PROCEDURE DESCRIPTION: After the initiation of monitored anesthetic care, and with the assistance of a bite block, I advanced a standard gastroscope through the mouth past the hypopharynx and into the esophagus.? Under the direct vision of the scope, I advanced down the esophagus into the stomach.? Once I entered the stomach, I performed a brief inspection, followed by retroflexion towards the gastric cardia.? This appeared normal.? After that, I gently advanced the scope around the incisura angularis and examined the pylorus.? This also appeared normal.? Next, I advanced the scope through the pylorus into the duodenum.? The mucosa was pink and healthy appearing.? There were no abnormalities.? I was able to visualize bile draining into the duodenum through the ampulla Vater. I did perform some random biopsies of the duodenum. ?Next, I began retracting the endoscope.? Again, I returned to the stomach which was carefully examined once again.? Similar to the first inspection, I did not see anything out of the ordinary. There was one area of some mild scope trauma right up at the GE junction. There were no polyps or tumors. There was no evidence of gastritis, or stigmata of recent bleeding. I did perform some random biopsies of the gastric antrum and the gastric body. I then gently desufflated some of the stomach, and withdrew the endoscope into the distal esophagus. The Z-line was fairly consistent, with only some mild irregularity along 1 portion. The extent of the irregularity was less than 0.5 cm from top to bottom. The Z-line and GE junction were at 40 cm. I performed some biopsies of the GE junction. All biopsies were performed with cold forceps, and there was minimal bleeding from all the sites. ?Finally, I withdrew the scope along the length of the esophagus taking great care to examine the entirety of the mucosa.? I did not appreciate any abnormalities.
[2023-03-03 08:30] VITALS: BP 136/72; PULSE 72; RESP 18; TEMP 36.6; O2SAT 97
[2023-03-03] MEDS: Lactated Ringers 1,000 ML 80 ML IV (09:00)
--- NOTE | 2023-03-03 09:07 | W.ANESPRE ---
General Info Date of Service Date Performed: 03/03/23 Height: 5 ft 11 in Weight: 71.7 kg Body Mass Index (BMI): 22.0 Surgical Procedure: Operation Date: 03/03/23 09:50 Proposed Procedure Side Surgeon p Gastroscopy Cornell Arnold MD Meds Allergies and Home Medications Allergies Allergy/AdvReac Type Severity Reaction Status Date / Time No Known Drug Allergies Allergy Verified 03/03/23 08:30 Home Medication Medication Instructions Recorded albuterol sulfate 2.5 mg/3 mL 1 vial inhalation Q4H PRN #120 01/08/16 (0.083 %) solution for nebulization vials fluticasone fur. 100 mcg-umeclid 1 inh inhalation DAILY 06/23/21 62.5 mcg-vilant 25 mcg inhalat.powder (Trelegy Ellipta) sildenafil 100 mg tablet See Rx Instructions PO DAILY PRN 02/15/22 sexual activity #20 tabs albuterol sulfate 90 mcg/actuation 2 puff inhalation Q4H PRN ##3 11/01/22 aerosol inhaler (ProAir HFA) atorvastatin 80 mg tablet 80 mg PO HS #90 tabs 11/01/22 calcium carbonate [Tums] 1 tab PO DIRECTED PRN dyspepsia 02/09/23 dextroamphetamine-amphetamine 20 20 mg PO BID #60 tabs 02/09/23 mg tablet pantoprazole 40 mg tablet,delayed 40 mg PO BID #180 tabs 02/09/23 release triamcinolone acetonide 0.1 % 1 applic topical BID Dermatitis 02/09/23 topical cream bilateral forearm, LLE #80 grams Current Visit Medications: Current Medications Generic Name Dose Route Start Last Admin Trade Name Freq PRN Reason Stop Dose Admin Hyoscyamine Sulfate 0.125 mg 03/02/23 19:13 Hyoscyamine 0.125 Mg Sl/Oral/Chew SL 04/01/23 19:12 DIRECTED PRN Ringer's Solution 1,000 mls @ 80 mls/hr 03/03/23 06:00 IV 03/03/23 23:59 INFUSION JANUSZ IV Miscellaneous Supplies 1 each 03/03/23 06:00 Iv Access IV 03/03/23 23:59 DIRECTED JANUSZ Ondansetron HCl 4 mg 03/02/23 19:13 Ondansetron 4 Mg/2 Ml Vial IVP 04/01/23 19:12 Q4H PRN PRN Nausea / Vomiting Sodium Chloride 0 ml 03/03/23 06:00 Normal Saline Flush 10 Ml Syr IV 03/03/23 23:59 PRN PRN Sodium Chloride 0 ml 03/03/23 06:00 Normal Saline 10 Ml Vial IJ 03/03/23 23:59 DIRECTED PRN Sterile Water 0 ml 03/03/23 06:00 Water,Injection,Sterile 10 Ml Vial IJ 03/03/23 23:59 DIRECTED PRN PFSH Active Problems Active Problems: Problem Status Onset Code Dyspepsia R10.13 Nicotine dependence, cigarettes, uncomplicated F17.210 Blunt chest trauma S29.8XXA Painful respiration R07.1 Travis angioma D18.01 Seborrheic keratoses L82.1 Depressive disorder 06/26/13 F32.9 Major depressive disorder, single episode, moderate F32.1 Depression 10/11/17 F32.9 Colorectal polyps K63.5 Anxiety 03/23/18 F41.9 Chronic obstructive lung disease 06/26/13 J44.9 Gastroesophageal reflux disease 06/26/13 K21.9 Male erectile disorder 06/26/13 N52.9 Osteoarthritis of knee 06/26/13 M17.10 SOB (shortness of breath) 01/09/18 R06.02 Tobacco dependence 06/26/13 F17.200 Elevated cholesterol E78.00 Colonoscopy refused Z53.20 Cough R05 Post-traumatic stress disorder F43.10 Loss of height SANCHEZ (dyspnea on exertion) R06.09 Weight loss R63.4 ADD (attention deficit disorder) F98.8 Surgical History Surgical History CT/head/brain w/wo contrast (01/25/18) done at [facility] 01/25/18. report in scanning EGD - MAC (01/27/18) History of colonoscopy Hx of total knee arthroplasty Left Tobacco Smoking/Tobacco Use Status: Current every day Tobacco Type: cigarettes Smoking cigarettes per day: 10 Alcohol Alcohol Intake: former Substance Use Substance use: Current Sobriety Substance use type: does not use Details: Sober since 1989 Vital Signs and Lab Results Vital Signs Most Recent Vital Signs in EMR: Most Recent Vital Signs Temp Pulse Resp BP Pulse Ox 36.6 C 72 18 136/72 97 03/03/23 08:30 03/03/23 08:30 03/03/23 08:30 03/03/23 08:30 03/03/23 08:30 Lab Results Blood Type / Crossmatch: No Data to Display Complete Blood Count: No Data to Display Complete Metabolic Panel: No Data to Display Liver Function Panel: No Data to Display Coagulation Panel: No Data to Display Cardiac Panel: No Data to Display Arterial Blood Gas: No Data to Display Venous Blood Gas: No Data to Display Pancreas Panel: No Data to Display Thyroid Panel: No Data to Display Infectious Disease: No Data to Display Blood Cultures: No Data to Display Toxicology Panel: No Data to Display Imaging and Studies Imaging and Studies Study information below may be from another EMR and interpreted by another provider. Please see original notes in EMR for more complete details. EKG Summary: DATE/TIME OF SERVICE: 08/04/2233 : 1955ERFORMING LOCATION: [facility] APPROVED REPORT Exam: Resting ECG Reason for Exam: chest pain Patient Location: O HR:89 bpm ECG Measurements Heart Rate 89 AXIS GA 140 P 79 QRSd 104 QRS 82 QT 366 T63 QTc 446 Conclusion Sinus rhythm...normal P axis, V-rate 50- 99 Borderline right axis deviation...QRS axis ( 81, 90) Minimal ST elevation, anterior leads...ST >0.10mV, V1-V4 Stress Test Summary: 08/24/22:Stress ECG Conclusion 1. The resting electrocardiogram was within normal limits 2. Patient exercised on the Chay protocol and completed a workload of 10.17 METS, limited by fatigue. 3. Normal heart rate and blood pressure response to exercise. Patient achieved 96% of predicted heart rate for age 4. There was no electrocardiographic evidence of myocardial ischemia 5. There were no significant dysrhythmias Connor Treadmill Score is 8.1 which is Low risk. Echocardiogram Summary: Date of Exam: 08/13/22Sex: M Admission Date: 08/13/22 : 1955 Age: 66 APPROVED REPORT EXAM: Comprehensive 2D, Doppler, and color-flow Echocardiogram Patient Location: Out-Patient [place] Operator: Kary Chamorro RDCS (AE) Indications: non exertional chest pain Other Information Study Quality: Fair. Technically limited study due to body habitus smoker. Conclusion Normal left ventricular wall thickness and chamber size. Estimated ejection fraction is 55%. Wall motion appears normal Normal right ventricular size and systolic function Both atria are normal in size There is no structural or hemodynamically significant valvular disease Pulmonary Function Summary: DATE OF SERVICE: December 24, 2015 PRIMARY CARE PROVIDER: Beryl Gardner NP INTERPRETATION OF STUDY: Spirometry shows mild obstructive airways disease with no significant bronchodilator response. LUNG VOLUMES: Show no evidence of restriction. DIFFUSION CAPACITY: Moderately reduced even when corrected to alveolar volume. AIRWAYS RESISTANCE: Poorly conducted; test cannot be interpreted. IMPRESSION: Mild obstructive airways disease with no significant bronchodilator response. This is associated with moderate diffusion defect. Clinical correlation recommended. Anesthesia Assessment and Plan Anesthesia History Personal History: No History of Anesthesia Complications Family History: No Family History of Anesthesia Complications Exercise Tolerance Exercise Tolerance: Metabolic Equivalents>4 Pertinent Negatives Pertinent Negatives: No Symptoms of GERD and No Major Cardiovascular Symptoms or Complaints Cardiac & Pulmonary Exam Cardiac Exam: Normal S1/S2 Heart Sounds Pulmonary Exam: Clear Bilateral Breath Sounds Implantable Cardiac Device Does patient have a Pacemaker or an ICD?: No Airway Exam Known Difficult Airway: No Mallampati Class: 1 Mouth Opening: Normal (> 3cm) Thyromental Distance: Less than 3 cm Neck Range of Motion: Full ROM Neck Circumference: Normal Teeth Condition: Normal Dentition ASA Classification ASA Score: ASA 2 Emergency Case?: No NPO Status NPO Status: NPO Clears >2 hours, Solids >8 hours Anesthesia Plan Resuscitation Status: Full Code Anesthesia Technique: General Anesthesia Airway Planned: Natural Airway Monitors Used: Standard Monitors
[2023-03-03 09:13] VITALS: BMI 22.0
--- NOTE | 2023-03-03 09:27 | STOM_PTH ---
PATIENT: Robby Mirza JR LOC: [facility] U#:[id number] AGE/SX: 67/M ROOM: RE03/03/[address]: Cornell Arnold MD : 1955 BED: DIS: 03/03/2023 SPEC #: [id number] RECD: 03/03/23 13:00 STATUS: [facility]ANGLexus [facility] #: [id number] VINEET: 03/03/23 09:[address]: Cornell Arnold DEPT: Surgical Specimen RECD BY: Maren Robert ENTERED: 03/03/23 13:03 SP TYPE: STOMACH OTHR DR: Renae Portillo APRN Tissues: 1 - BIOPSY BOWEL 2 - STOMACH BIOPSY 3 - STOMACH BIOPSY 4 - ESOPHAGUS BIOPSY Procedures: GROSS AND MICRO LEVEL 4 Comments: [id number]
[2023-03-03 09:44] VITALS: BP 114/77; PULSE 83; RESP 18; TEMP 36.1; O2SAT 97
--- NOTE | 2023-03-03 09:56 | W.ANESPOSTOP ---
Postoperative Evaluation Date, Time and Location Date Performed: 03/03/23 Time Performed: 09:56 Patient Location: Day Surgery Unit Vital Signs Most Recent Imported Vital Signs: Most Recent Vital Signs Temp Pulse Resp BP Pulse Ox 36.1 C L 83 18 114/77 97 03/03/23 09:44 03/03/23 09:44 03/03/23 09:44 03/03/23 09:44 03/03/23 09:44 Pain Score Most Recent Pain Score: Most Recent Pain Score Pain Level 0 03/03/23 08:30 Assessment Mental Status: Awake (Alert & Oriented to Patient Baseline) Airway and Respiratory Function: Patent airway with normal (patient baseline) respiratory exam Cardiovascular Function: Hemodynamically Stable Hydration Status: Adequately Hydrated Nausea & Vomiting: No Nausea or Vomiting Pain: Pt. Denies Any Pain Peripheral Nerve Block: Patient did not receive a nerve block
[2023-03-03 10:45] VITALS: BP 126/81; PULSE 60; RESP 16; TEMP 36.5; O2SAT 98
== END 2023-03-03 10:15 | disposition home or self-care (01) ==
PROVIDERS: PCP Nurse Practitioner; Visit Provider Surgery
PROC: 0DJ68ZZ Inspection of Stomach, Via Natural or Artificial Opening Endoscopic (ICD-10-PCS; CPT 43235; principal; 2023-03-03 09:45)
DX: K21.9 Gastro-esophageal reflux disease without esophagitis (principal); R10.13 Epigastric pain
CPT/HCPCS: 43239; 88305

== ENCOUNTER → 2023-03-16 08:19 | Outpatient (BNVA) | payer MEDICARE, SELFPAY | PROVIDERS: PCP Nurse Practitioner; Referring Provider Nurse Practitioner; Visit Provider Surgery | DX: Z48.815 Encounter for surgical aftercare following surgery on the digestive system (principal); F17.210 Nicotine dependence, cigarettes, uncomplicated | CPT/HCPCS: 99214 ==

== ENCOUNTER → 2023-04-12 13:35 | Outpatient (CLI) | payer MEDICARE, SELFPAY ==
--- NOTE | 2023-04-12 12:54 | DI.RAD_ITS ---
Exam(s) XR CHEST 2V PA LATERAL EXAM: XR CHEST 2V PA LATERAL CLINICAL HISTORY: Cough, dyspnea, known COPD R05.9 TECHNIQUE: 2D digital imaging was performed. COMPARISON: CR XR RIBS BI INCLUDE CHEST from 05/28/2021 FINDINGS: HEART: Normal size. Aorta: Not dilated. PULMONARY VASCULATURE: Normal. LUNGS: Hyperinflated. Apical scarring. No focal infiltrate or pulmonary edema.. PLEURAL SPACE: No pleural effusion or pneumothorax. BONE:Unremarkable for age. IMPRESSION: No acute abnormality. DATA REPOSITORY: RADIATION DOSE DELIVERED:
== END ==
PROVIDERS: PCP Nurse Practitioner; Visit Provider Family Medicine
DX: R05.9 Cough, unspecified (principal); J44.9 Chronic obstructive pulmonary disease, unspecified
CPT/HCPCS: 71046

== ENCOUNTER → 2023-06-21 12:15 | Outpatient (CLI) | payer MEDICARE, SELFPAY ==
--- NOTE | 2023-06-21 11:30 | DI.RAD_ITS ---
Exam(s) XR CHEST 2V PA LATERAL EXAM: XR CHEST 2V PA LATERAL CLINICAL HISTORY: f/u pneumonia, lingular pneumonia, J18.9 TECHNIQUE: 2D digital imaging was performed. COMPARISON: CR XR CHEST 2V PA LATERAL from 04/12/2023 FINDINGS: HEART: Normal size. Aorta: Not dilated. PULMONARY VASCULATURE: Normal. LUNGS: Mild hyperinflation. Emphysematous and fibrotic changes. Scarring upper lobes. No acute inf iltrate. PLEURAL SPACE: No pleural effusion or pneumothorax. BONE:Unremarkable for age. IMPRESSION: No acute abnormality. DATA REPOSITORY: RADIATION DOSE DELIVERED:
== END ==
PROVIDERS: PCP Nurse Practitioner; Visit Provider Nurse Practitioner
DX: J18.9 Pneumonia, unspecified organism (principal)
CPT/HCPCS: 71046

== ENCOUNTER 2023-06-21 15:11 | Outpatient (REF) | payer MEDICARE, SELFPAY ==
[2023-06-21 16:08] LABS: HCT 37.3 % (40.0-50.0); HGB 12.5 g/dL (13.5-17.5); MCH 31.3 pg (27.0-33.0); MCHC 33.5 % (32.0-36.0); MCV 93 fL (80-95); MPV 11.1 fL (8.0-11.0); Platelet Count 284 10^3/uL (130-400); RDW 12.6 % (11.8-14.1); RDW-SD 43.6 fL
[2023-06-21 16:16] LABS: Anion Gap 8.7 mmol/L (3-11); BUN 26 mg/dL (7-18); CO2 28.3 mmol/L (21.0-32.0); CREATININE 1.2 mg/dL (0.70-1.30); Calcium 9.5 mg/dL (8.5-10.1); Chloride 103 mmol/L (98-107); Estimated GFR 65.46 (mL/min/1.73m2); Glucose 93 mg/dL (74-106); Potassium 3.7 mmol/L (3.5-5.1); Sodium 140 mmol/L (136-145)
[2023-06-21 16:27] LABS: Diff Comment Diff Reviewed; RBC Morphology Normal
== END 2023-06-21 15:12 | disposition home or self-care (01) ==
LOC: LBN 15:11
PROVIDERS: PCP Nurse Practitioner; Visit Provider Student in an Organized Health Care Education/Training Program
DX: R07.9 Chest pain, unspecified (principal); R06.00 Dyspnea, unspecified; R63.4 Abnormal weight loss
CPT/HCPCS: 80048; 87077; 85025; 87070; 87186; 87205

== ENCOUNTER → 2023-06-23 12:11 | Outpatient (CLI) | payer MEDICARE, SELFPAY ==
--- NOTE | 2023-06-23 09:05 | DI.CT_ITS ---
Exam(s) CT CHEST PE CTA EXAM: CT CHEST PE CTA CLINICAL HISTORY: non resolving resp symptoms, fever R06.00 DYSPNEA R07.9 CHEST PAIN. TECHNIQUE: Imaging Protocol: Axial CT angiography was performed with multi-slice acquisition and mu lti-planar reconstructions as well as axial, coronal and sagittal MIP reconstructions. CONTRAST MATERIAL: Intravenous: Omnipaque 350 Contrast volume:100 ml COMPARISON: CT CT CHEST LOW DOSE CA SCREENING from 08/10/2021 CR XR CHEST 2V PA LATERAL from 06/21/2023 FINDINGS: Pulmonary Arteries: No evidence of filling defect to suggest pulmonary emboli. Tracheobronchial tree: Patent where visualized. Mediastinum and Di: No dominant adenopathy or fluid collection. Pulmonary parenchyma: Mild upper lobe upper lobe emphysematous changes and scarring. Scattered small infiltrates noted in the in both upper lobes with a tree-in-bud appearance.. Infiltrates largest in the lingula and right middle lobe anteriorly. No dominant measurable mass. Stable small bilateral nodules. Pleura: No effusion or pneumothorax. Heart: The heart is not dilated. No coronary artery calcifications are seen. Aorta: Thoracic aorta non-dilated. No aneurysm. No dissection. Atherosclerotic plaque. Upper abdomen: Unremarkable. Bones: Unremarkable for age. Tubes, Catheters, and Lines: None IMPRESSION: Bilateral lingular and right middle lobe infiltrates. Scattered bilateral upper lobe infiltrates. RADIATION DOSE DELIVERED: Total DLP DATA REPOSITORY: All CT scans at this facility are submitted to the National Radiology Data Registry (NRDR) Dose Index Registry (DIR) with the [employer] (A[employer]). RADIATION OPTIMIZATION: All CT scans at this facility use at least one of these dose optimization te chniques: automated exposure control; mA and/or kV adjustment per patient size (includes targeted exa ms where dose is matched to clinical indication); or iterative reconstruction.
[2023-06-23] MEDS: Normal Saline - Diluent 50 ML VIAL IJ (12:57)
[2023-06-23] MEDS: Omnipaque 350 MG/ML 100 ML BTL IJ (12:58)
== END ==
PROVIDERS: PCP Nurse Practitioner; Visit Provider Student in an Organized Health Care Education/Training Program
DX: R91.8 Other nonspecific abnormal finding of lung field (principal); R06.00 Dyspnea, unspecified; R07.9 Chest pain, unspecified
CPT/HCPCS: 71275; J3490

== ENCOUNTER → 2023-07-06 07:39 | Outpatient (BNVA) | payer MEDICARE, SELFPAY | PROVIDERS: PCP Nurse Practitioner; Referring Provider Nurse Practitioner; Visit Provider Surgery | DX: Z48.815 Encounter for surgical aftercare following surgery on the digestive system (principal) | CPT/HCPCS: 99214 ==

== ENCOUNTER → 2023-07-12 09:44 | Outpatient (BNVA) | payer MEDICARE, SELFPAY | PROVIDERS: PCP Nurse Practitioner; Referring Provider Nurse Practitioner; Visit Provider Physician Assistant Surgical | DX: J43.2 Centrilobular emphysema (principal); Z79.899 Other long term (current) drug therapy; F17.210 Nicotine dependence, cigarettes, uncomplicated; R07.9 Chest pain, unspecified; R06.00 Dyspnea, unspecified | CPT/HCPCS: 99214 ==

== ENCOUNTER → 2023-08-02 00:28 | Outpatient (CLI) | payer MEDICARE, SELFPAY ==
[2023-08-02] MEDS: Barium Sulfate 2% W/V-Berry Smoothie 450 ML BTL 900 ML PO (12:00)
[2023-08-02] MEDS: Normal Saline - Diluent 50 ML VIAL IJ (14:04)
[2023-08-02] MEDS: Omnipaque 350 MG/ML 500 ML BTL-Imaging package 100 ML IJ (14:05)
[2023-08-02] MEDS: Normal Saline Flush 10 ML SYR IVP (14:06)
--- NOTE | 2023-08-02 14:15 | DI.CT_ITS ---
Exam(s) CT ABDOMEN PELVIS W EXAM: CT ABDOMEN PELVIS W CLINICAL HISTORY: abd pain with weight loss,R10.9. TECHNIQUE: Imaging Protocol: Axial computed tomography images with coronal and sagittal reformatted images were created and reviewed CONTRAST MATERIAL: Intravenous: Omnipaque 350 Contrast volume:100 ml Oral: yes / COMPARISON: CT CT CHEST PE CTA from 06/23/2023 FINDINGS: ABDOMEN and PELVIS: Lung Bases: No acute findings. Liver: Normal density. No measurable mass. Gallbladder and biliary tract: No radiodense calculus or dilation. Pancreas: Normal density. No abnormal calcifications or inflammatory process. No evidence of mass. Spleen: Normal. Kidneys: Normal size, contour and axis. No radiodense stones. No obstructive uropathy. No suspicious masses seen. Adrenal glands: No masses seen. Vasculature: Abdominal aorta non-dilated. Soft tissues: Unremarkable. Bladder: No gross wall thickening. No calculi.No focal mass. Bowel: Moderate to increased quantity of stool. No obstruction. No bowel wall thickening. Appendix normal. Peritoneal cavity: No ascites. No focal collection or mesenteric inflammatory response. Bones: Degenerative disc changes at L3-4. Reproductive organs: Prostate mildly enlarged. Lymph nodes: Unremarkable. IMPRESSION:: Moderate to increased quantity of stool. No acute abnormality. RADIATION DOSE DELIVERED: Total DLP DATA REPOSITORY: All CT scans at this facility are submitted to the National Radiology Data Registry (NRDR) Dose Index Registry (DIR) with the [employer] (ACR). RADIATION OPTIMIZATION: All CT scans at this facility use at least one of these dose optimization te chniques: automated exposure control; mA and/or kV adjustment per patient size (includes targeted exa ms where dose is matched to clinical indication); or iterative reconstruction.
== END ==
PROVIDERS: PCP Nurse Practitioner; Visit Provider Surgery
DX: R10.9 Unspecified abdominal pain (principal); M43.06 Spondylolysis, lumbar region
CPT/HCPCS: 74177

== ENCOUNTER → 2023-08-17 08:54 | Outpatient (BNVA) | payer MEDICARE, SELFPAY | PROVIDERS: PCP Nurse Practitioner; Referring Provider Nurse Practitioner; Visit Provider Surgery | DX: Z12.11 Encounter for screening for malignant neoplasm of colon (principal) ==

== ENCOUNTER 2023-08-25 06:51 | Day surgery (SDC) | payer MEDICARE, SELFPAY ==
--- NOTE | 2023-08-24 19:46 | W.PM.DSUDISC ---
Date of service: 08/25/23 Time of Service: 08:57 Discharge Plan Disposition Patient Disposition: Home Condition: Good Discharge Details Reason For Visit: colonoscopy Attending Provider: Cornell Arnold Primary Care Provider: Renae Portillo Home Meds and New Rx's Prescriptions: Continued sildenafil 100 mg tablet See Rx Instructions PO DAILY PRN (Reason: sexual activity) Qty: 20 5RF Rx Instructions: 1/2 to 1 tab orally daily PRN; administer 30 minutes to 4 hours before activity atorvastatin 80 mg tablet 80 mg PO HS Qty: 90 3RF albuterol sulfate [ProAir HFA] 90 mcg/actuation HFA aerosol inhaler 2 puff Inhalation Q4H PRN Qty: 3 3RF calcium carbonate [Tums] 1 tab PO DIRECTED PRN (Reason: dyspepsia) pantoprazole 40 mg tablet,delayed release (DR/EC) 40 mg PO BID Qty: 180 1RF (DME) nebulizers [Compact Compressor Nebulizer] Misc See Rx Instructions .Route Qty: 1 0RF Rx Instructions: Use QID as directed for SOB/wheeze albuterol sulfate 1.25 mg/3 mL solution for nebulization 1.25 mg inhalation QID PRN (Reason: shortness of breath or wheezing) Qty: 180 6RF dextroamphetamine-amphetamine 20 mg tablet 20 mg PO BID MDD 40mg Qty: 60 0RF Rx Instructions: administer doses at least 4-6 hours apart dextroamphetamine-amphetamine 20 mg tablet 20 mg PO BID MDD 40mg Qty: 60 0RF Rx Instructions: administer doses at least 4-6 hours apart dextroamphetamine-amphetamine 20 mg tablet 20 mg PO BID MDD 40mg Qty: 60 0RF Rx Instructions: administer doses at least 4-6 hours apart Trelegy Ellipta 100-62.5-25 mcg blister with device 1 inh inhalation DAILY acetaminophen [Tylenol Extra Strength] 500 mg tablet 1,000 mg PO Q6H PRN ibuprofen 200 mg capsule 400 mg PO Q6H PRN albuterol sulfate 2.5 MG/3 ML solution for nebulization 1 vial Inhalation Q4H PRN Qty: 120 Rx Instructions: 0.083% Dr Suh Discontinued polyethylene glycol 3350 17 gram/dose powder 238 g PO ONCE Qty: 238 0RF Rx Instructions: take per colonoscopy instructions bisacodyl [Dulcolax (bisacodyl)] 5 mg tablet,delayed release (DR/EC) 5 mg PO ONCE Qty: 4 0RF Rx Instructions: take per colonoscopy instructions Discharge Instructions Additional Instructions: Bernard, we were able to complete your colonoscopy today without any issues. I did see several rectal polyps. The did not appear worrisome to me, but I did take out the largest of the group for analysis by the pathologist. I do not believe that they would account for your weight loss. Once I have the reports regarding the nature of those polyps, I will be in touch with my recommendations. 1. If tolerated, consume a soft, low fiber diet for 1-2 days. 2[address] Do not drive, drink alcohol, operate machinery, make critical decisions, or do activities that require coordination or balance for 24 hours. 3. Because air was put into your colon during the procedure, expelling air from your rectum (passing gas or farting) is normal. 4. You may not have a bowel movement for 1-3 days because of the colonoscopy prep. This is normal. 5. Go directly to the emergency room if you notice any of the following: Develop chills (warm to touch), or if you have a thermometer and your temperature is above 101 Difficulty breathing or difficultly swallowing Persistent vomiting Severe abdominal pain, other than gas cramps Severe chest pain Black, tarry stools Any bleeding ? exceeding one tablespoon 6. Call your physician if the site where your intravenous was started becomes red, swollen, painful, and warm to touch. 7. Your physician has reviewed your pre-procedure medications. Please continue to take those medications as previously ordered. You will be given specific information/education regarding any changes to your medications before leaving. Stand Alone Forms: Anesthesia Discharge Inst., Eva Moore (DSU) Activity:: Activity as Tolerated Diet:: As Tolerated Discharge Orders Discharge Orders: Discharge Order (Routine); Ordered 08/24/23 Ordered By: Cornell Arnold DS: Diagnosis Discharge Diagnosis (1) Weight loss: Status: Acute Asessment and Plan: I will follow-up on the pathology report from the rectal polyps
--- NOTE | 2023-08-24 19:48 | W.COLOREPORT ---
Date of service: 08/25/23 Time of Service: 08:59 Colonoscopy Report Date of procedure: 08/25/23 Pre-op diagnosis general: Weight loss Post-op diagnosis procedure note: other (Rectal polyps) Procedure: Diagnostic colonoscopy with polypectomy Surgeon: Cornell Arnold Anesthesia Type: General:No Airway Estimated blood loss (mL): 5 Pathology: other (Rectal polyps) Complications: None Disposition: same day Indications: Robby is a 67 year old male with crhonic abdominal discomfort and unexpected weight loss for several months. Prep: Miralax/Dulcolax Procedure Start Time: 08:09 Procedure End Time: 08:43 Retraction Time: 26 Findings: Rectal polyps Procedure Description: After the induction of monitored anesthetic care, and with the patient in left lateral decubitus position, I began by performing an external anorectal exam.? Perineum and skin were normal, as was the anal verge.? There were some fibrosed external skin tags.? Next, I performed a digital rectal exam.? I did not appreciate any abnormal findings.? Next, I advanced a colonoscope into the rectal vault.? I performed retroflexion.? This was normal.? There were several rectal polyps, all less than 0.5 cm. A majority of these were less than 0.25 cm. Analysis was assisted with narrowband imaging. They appeared benign. I did perform polypectomy of the 4 dominant polyps using cold forceps. There was minimal bleeding. Using insufflation, I then advanced the colonoscope beyond the rectal folds and into the sigmoid colon before advancing towards the cecum.? The scope was noted to be in the cecum by identification of the ileocecal valve and appendiceal orifice.? I then began withdrawing the colonoscope using repeated irrigation as necessary for full evaluation of the colonic mucosa. ?Once the scope was withdrawn to the level of the rectum, great care was taken to examine portions of the rectal folds.? In light of the patient's unexplained weight loss, I did perform random biopsies along the length of the colon to rule out other forms of colitis. Incidentally, there was also some evidence of a small amount of retained foreign body material. It seemed consistent with a plastic label. It was soft and mobile. I left it. Finally, the scope was withdrawn and the patient was brought to the same-day surgery recovery unit as the anesthetic wore off. ?The findings and instructions were shared with the patient prior to discharge. Bradford Bowel Prep Bradford Bowel Prep Right Colon: 3 Left Colon: 2 Transverse Colon: 3 Total Score: 8
[2023-08-25 07:05] VITALS: BP 125/59; PULSE 89; RESP 16; TEMP 36.6; O2SAT 98
[2023-08-25] MEDS: Lactated Ringers 1,000 ML 80 ML IV (07:15)
--- NOTE | 2023-08-25 07:56 | ANES.PREOP_ITS ---
General Info Date of Service Date Performed: 08/25/23 Height: 5 ft 11 in Weight: 69 kg Body Mass Index (BMI): 21.2 Surgical Procedure: Operation Date: 08/25/23 08:05 Proposed Procedure Side Surgeon quiana Arnold MD Meds Allergies and Home Medications Allergies Allergy/AdvReac Type Severity Reaction Status Date / Time No Known Drug Allergies Allergy Verified 08/25/23 07:06 Home Medication Medication Instructions Recorded albuterol sulfate 2.5 mg/3 mL 1 vial inhalation Q4H PRN #120 01/08/16 (0.083 %) solution for nebulization vials fluticasone fur. 100 mcg-umeclid 1 inh inhalation DAILY 06/23/21 62.5 mcg-vilant 25 mcg inhalat.powder (Trelegy Ellipta) sildenafil 100 mg tablet See Rx Instructions PO DAILY PRN 02/15/22 sexual activity #20 tabs albuterol sulfate 90 mcg/actuation 2 puff inhalation Q4H PRN ##3 11/01/22 aerosol inhaler (ProAir HFA) atorvastatin 80 mg tablet 80 mg PO HS #90 tabs 11/01/22 calcium carbonate [Tums] 1 tab PO DIRECTED PRN dyspepsia 02/09/23 pantoprazole 40 mg tablet,delayed 40 mg PO BID #180 tabs 02/09/23 release albuterol sulfate 1.25 mg/3 mL 1.25 mg (3 mL) inhalation QID PRN 05/04/23 solution for nebulization shortness of breath or wheezing #180 mL nebulizers (Compact Compressor #1 ea 05/04/23 Nebulizer) acetaminophen 500 mg tablet 1,000 mg PO Q6H PRN 07/06/23 (Tylenol Extra Strength) ibuprofen 200 mg capsule 400 mg PO Q6H PRN 07/06/23 dextroamphetamine-amphetamine 20 20 mg PO BID #60 tabs 07/27/23 mg tablet dextroamphetamine-amphetamine 20 20 mg PO BID #60 tabs 07/27/23 mg tablet dextroamphetamine-amphetamine 20 20 mg PO BID #60 tabs 07/27/23 mg tablet Current Visit Medications: Current Medications Generic Name Dose Route Start Last Admin Trade Name Freq PRN Reason Stop Dose Admin Hyoscyamine Sulfate 0.125 mg 08/24/23 19:51 Hyoscyamine 0.125 Mg Sl/Oral/Chew SL 09/23/23 19:50 DIRECTED PRN Ringer's Solution 1,000 mls @ 80 mls/hr 08/25/23 06:00 08/25/23 07:15 IV 08/28/23 23:59 80 mls/hr INFUSION JANUSZ Administration IV Miscellaneous Supplies 1 each 08/25/23 06:00 Iv Access IV 08/28/23 23:59 DIRECTED JANUSZ Ondansetron HCl 4 mg 08/24/23 19:51 Ondansetron 4 Mg/2 Ml Vial IVP 09/23/23 19:50 Q4H PRN PRN Nausea / Vomiting Sodium Chloride 0 ml 08/25/23 06:00 Normal Saline Flush 10 Ml Syr IV 08/28/23 23:59 PRN PRN Sodium Chloride 0 ml 08/25/23 06:00 Normal Saline 10 Ml Vial IJ 08/28/23 23:59 DIRECTED PRN Sterile Water 0 ml 08/25/23 06:00 Water,Injection,Sterile 10 Ml Vial IJ 08/28/23 23:59 DIRECTED PRN PFSH Active Problems Active Problems: Problem Status Onset Code Abdominal pain R10.9 Chest pain R07.9 Dyspnea R06.00 Dyspepsia R10.13 Nicotine dependence, cigarettes, uncomplicated F17.210 Blunt chest trauma S29.8XXA Painful respiration R07.1 Travis angioma D18.01 Seborrheic keratoses L82.1 Depressive disorder 06/26/13 F32.9 Major depressive disorder, single episode, moderate F32.1 Depression 10/11/17 F32.9 Colorectal polyps K63.5 Anxiety 03/23/18 F41.9 Chronic obstructive lung disease 06/26/13 J44.9 Gastroesophageal reflux disease 06/26/13 K21.9 Male erectile disorder 06/26/13 N52.9 Osteoarthritis of knee 06/26/13 M17.10 SOB (shortness of breath) 01/09/18 R06.02 Tobacco dependence 06/26/13 F17.200 Elevated cholesterol E78.00 Colonoscopy refused Z53.20 Cough R05 Post-traumatic stress disorder F43.10 Loss of height SANCHEZ (dyspnea on exertion) R06.09 Weight loss R63.4 ADD (attention deficit disorder) F98.8 Surgical History Surgical History History of colonoscopy Hx of total knee arthroplasty Left EGD - MAC (02/2023) EGD 02/03/2018 CT/head/brain w/wo contrast (01/25/18) done at [facility] 01/25/18. report in scanning Tobacco Smoking/Tobacco Use Status: Current every day Tobacco Type: cigarettes Smoking cigarettes per day: 10 Alcohol Alcohol Intake: former Substance Use Substance use: Current Sobriety Substance use type: does not use Details: Sober since 1989 Vital Signs and Lab Results Vital Signs Most Recent Vital Signs in EMR: Most Recent Vital Signs Temp Pulse Resp BP Pulse Ox 36.6 C 89 16 125/59 L 98 08/25/23 07:05 08/25/23 07:05 08/25/23 07:05 08/25/23 07:05 08/25/23 07:05 Lab Results Blood Type / Crossmatch: No Data to Display Complete Blood Count: No Data to Display Complete Metabolic Panel: No Data to Display Liver Function Panel: No Data to Display Coagulation Panel: No Data to Display Cardiac Panel: No Data to Display Arterial Blood Gas: No Data to Display Venous Blood Gas: No Data to Display Pancreas Panel: No Data to Display Thyroid Panel: No Data to Display Infectious Disease: No Data to Display Blood Cultures: No Data to Display Toxicology Panel: No Data to Display Imaging and Studies Imaging and Studies Study information below may be from another EMR and interpreted by another provider. Please see original notes in EMR for more complete details. EKG Summary: DATE/TIME OF SERVICE: 08/04/22 0933 : 4PERFORMING LOCATION: [facility] APPROVED REPORT Exam: Resting ECG Reason for Exam: chest pain Patient Location: O HR:89 bpm ECG Measurements Heart Rate 89 AXIS [place] 140 P 79 QRSd 104 QRS 82 QT 366 T63 QTc 446 Conclusion Sinus rhythm...normal P axis, V-rate 50- 99 Borderline right axis deviation...QRS axis ( 81, 90) Minimal ST elevation, anterior leads...ST >0.10mV, V1-V4 Stress Test Summary: 08/24/22:Stress ECG Conclusion 1. The resting electrocardiogram was within normal limits 2. Patient exercised on the Chay protocol and completed a workload of 10.17 METS, limited by fatigue. 3. Normal heart rate and blood pressure response to exercise. Patient achieved 96% of predicted heart rate for age 4. There was no electrocardiographic evidence of myocardial ischemia 5. There were no significant dysrhythmias Connor Treadmill Score is 8.1 which is Low risk. Echocardiogram Summary: Date of Exam: 08/13/22Sex: M Admission Date: 08/13/22 : 1955 Age: 66 APPROVED REPORT EXAM: Comprehensive 2D, Doppler, and color-flow Echocardiogram Patient Location: Out-Patient [place] Animal Caretaker: Kary Chamoror RDCS (AE) Indications: non exertional chest pain Other Information Study Quality: Fair. Technically limited study due to body habitus smoker. Conclusion Normal left ventricular wall thickness and chamber size. Estimated ejection fraction is 55%. Wall motion appears normal Normal right ventricular size and systolic function Both atria are normal in size There is no structural or hemodynamically significant valvular disease Pulmonary Function Summary: DATE OF SERVICE: December 24, 2015 PRIMARY CARE PROVIDER: Beryl Gardner NP INTERPRETATION OF STUDY: Spirometry shows mild obstructive airways disease with no significant bronchodilator response. LUNG VOLUMES: Show no evidence of restriction. DIFFUSION CAPACITY: Moderately reduced even when corrected to alveolar volume. AIRWAYS RESISTANCE: Poorly conducted; test cannot be interpreted. IMPRESSION: Mild obstructive airways disease with no significant bronchodilator response. This is associated with moderate diffusion defect. Clinical correlation recommended. Anesthesia Assessment and Plan Anesthesia History Personal History: No History of Anesthesia Complications Family History: No Family History of Anesthesia Complications Exercise Tolerance Exercise Tolerance: Metabolic Equivalents>4 Cardiac & Pulmonary Exam Cardiac Exam: Normal S1/S2 Heart Sounds Pulmonary Exam: Clear Bilateral Breath Sounds Implantable Cardiac Device Does patient have a Pacemaker or an ICD?: No Airway Exam Known Difficult Airway: No Mallampati Class: 1 Mouth Opening: Normal (> 3cm) Thyromental Distance: Less than 3 cm Neck Range of Motion: Full ROM Neck Circumference: Normal Teeth Condition: Normal Dentition ASA Classification ASA Score: ASA 2 Emergency Case?: No NPO Status NPO Status: NPO Clears >2 hours, Solids >8 hours Anesthesia Plan Resuscitation Status: Full Code Anesthesia Technique: General Anesthesia Airway Planned: Natural Airway Monitors Used: Standard Monitors
[2023-08-25 07:59] VITALS: BMI 21.2
--- NOTE | 2023-08-25 08:12 | BOWEL_PTH ---
PATIENT: Robby Mirza JR LOC: [facility] U#:[id number] AGE/SX: 67/M ROOM: RE08/25/[address]: Cornell Arnold MD : 1955 BED: DIS: 08/25/2023 SPEC #: [id number] RECD: 08/25/23 12:52 STATUS: KORTNEY RE #: [id number] VINEET: 08/25/23 08:[address]: Cornell Arnold DEPT: Surgical Specimen RECD BY: Maren Robert ENTERED: 08/25/23 12:53 SP TYPE: Bowel OTHR DR: Renae Portillo APRN Tissues: 1 - BIOPSY BOWEL 2 - BIOPSY BOWEL Procedures: GROSS AND MICRO LEVEL 4 Comments: [id number]
[2023-08-25 08:52] VITALS: BP 117/66; PULSE 73; RESP 16; TEMP 36.2; O2SAT 99
--- NOTE | 2023-08-25 09:06 | W.ANESPOSTOP ---
Postoperative Evaluation Date, Time and Location Date Performed: 08/25/23 Time Performed: 09:06 Patient Location: Day Surgery Unit Vital Signs Most Recent Imported Vital Signs: Most Recent Vital Signs Temp Pulse Resp BP Pulse Ox 36.2 C L 73 16 117/66 99 08/25/23 08:52 08/25/23 08:52 08/25/23 08:52 08/25/23 08:52 08/25/23 08:52 Pain Score Most Recent Pain Score: Most Recent Pain Score Pain Level 0 08/25/23 08:52 Assessment Mental Status: Awake (Alert & Oriented to Patient Baseline) Airway and Respiratory Function: Patent airway with normal (patient baseline) respiratory exam Cardiovascular Function: Hemodynamically Stable Hydration Status: Adequately Hydrated Nausea & Vomiting: No Nausea or Vomiting Pain: Pt. Denies Any Pain Peripheral Nerve Block: Patient did not receive a nerve block
[2023-08-25 09:17] VITALS: BP 120/57; PULSE 69; RESP 16; TEMP 36.4; O2SAT 98
== END 2023-08-25 09:40 | disposition home or self-care (01) ==
LOC: SUR 06:51
PROVIDERS: PCP Nurse Practitioner; Visit Provider Surgery
PROC: 0DJD8ZZ Inspection of Lower Intestinal Tract, Via Natural or Artificial Opening Endoscopic (ICD-10-PCS; CPT 45378; principal; 2023-08-25 08:00)
DX: Z12.11 Encounter for screening for malignant neoplasm of colon (principal); K63.5 Polyp of colon; R63.4 Abnormal weight loss; R10.9 Unspecified abdominal pain
CPT/HCPCS: 45380; 88305; J2001

== ENCOUNTER → 2024-02-16 08:50 | Outpatient (BNVA) | payer MEDICARE, SELFPAY | PROVIDERS: PCP Nurse Practitioner; Referring Provider Nurse Practitioner; Visit Provider Student in an Organized Health Care Education/Training Program | DX: J43.2 Centrilobular emphysema (principal); F17.210 Nicotine dependence, cigarettes, uncomplicated | CPT/HCPCS: 99214 ==

== ENCOUNTER → 2024-03-20 09:50 | Outpatient (CLI) | payer MEDICARE, SELFPAY ==
--- NOTE | 2024-03-20 09:15 | DI.RAD_ITS ---
Exam(s) XR CHEST 2V PA LATERAL EXAM: XR CHEST 2V PA LATERAL CLINICAL HISTORY: R05.9 cough, SOB; J43.2 Centrilobular emphysema TECHNIQUE: 2D digital imaging was performed of the chest. Two images were obtained. PA and lateral views were obtained. COMPARISON: CR XR CHEST 2V PA LATERAL from 06/21/2023 FINDINGS: MEDIASTINUM: Normal. HEART: Normal. PULMONARY VASCULATURE: Normal. LUNGS: The lungs are hyperinflated suggesting underlying COPD. No focal consolidating infiltrates ar e present. PLEURAL SPACE: No pleural effusion or pneumothorax. BONE:Within normal limits for the patient's age. OTHER FINDINGS:Normal. IMPRESSION: 1. No focal consolidating infiltrates. 2. COPD. DATA REPOSITORY: RADIATION DOSE DELIVERED:
== END ==
PROVIDERS: PCP Nurse Practitioner; Visit Provider Nurse Practitioner
DX: R05.9 Cough, unspecified (principal); J43.2 Centrilobular emphysema
CPT/HCPCS: 71046

== ENCOUNTER → 2024-04-10 12:55 | Outpatient (BNVA) | payer MEDICARE, SELFPAY | PROVIDERS: PCP Nurse Practitioner; Referring Provider Nurse Practitioner; Visit Provider Podiatrist | DX: S90.31XA Contusion of right foot, initial encounter (principal); L02.611 Cutaneous abscess of right foot; L03.115 Cellulitis of right lower limb; M79.671 Pain in right foot; X50.0XXA Overexertion from strenuous movement or load, initial encounter; Y93.01 Activity, walking, marching and hiking | CPT/HCPCS: 99214 ==

== ENCOUNTER 2024-04-10 13:31 | Inpatient (IN) | payer MEDICARE, SELFPAY ==
[2024-04-10] VITALS (8 sets, daily range): BP systolic 105–148; BP diastolic 57–80; PULSE 88–98; RESP 12–18; TEMP 37–37.2; O2SAT 96–98
[2024-04-10 14:51] LABS: Abs Immature Grans 0.07 10^3/uL (0.0-0.06); Absolute Basophil Count 0.03 10^3/uL (0.0-0.2); Absolute Eosinophil Count 0.15 10^3/uL (0.0-0.7); Absolute Lymphocyte Count 1.25 10^3/uL (1.2-3.4); Absolute Monocyte Count 0.79 10^3/uL (0.1-0.8); Absolute Neutrophil Count 11.32 10^3/uL (1.2-6.7); Basophils % 0.2 %; Eosinophils % 1.1 %; HCT 37.4 % (40.0-50.0); HGB 12.3 g/dL (13.5-17.5); Immature Grans % 0.5 %; Lymphocytes % 9.2 %; MCH 31.8 pg (27.0-33.0); MCHC 32.9 % (32.0-36.0); MCV 97 fL (80-95); MPV 10.7 fL (8.0-11.0); Monocytes % 5.8 %; Neutrophils % 83.2 %; Platelet Count 195 10^3/uL (130-400); RBC 3.87 10^6/uL (4.36-5.78); RDW 12.6 % (11.8-14.1); RDW-SD 44.7 fL; WBC 13.61 10^3/uL (4.4-10.8)
[2024-04-10 14:55] LABS: ESR 25 mm/hr (0-20)
[2024-04-10] MEDS: Gadoterate meglumine 20 ML SYRINGE 13 ML IVP (15:26)
[2024-04-10 15:37] LABS: ALT 25 U/L (16-63); AST 20 U/L (15-37); Albumin 3.7 g/dL (3.4-5.0); Alkaline Phosphatase 96 U/L (46-116); Anion Gap 9.7 mmol/L (3-11); BUN 16 mg/dL (7-18); Bilirubin, Total 0.39 mg/dL (0.2-1.0); C-Reactive Protein 3.84 mg/dL (<or=0.5); CO2 28.3 mmol/L (21.0-32.0); Calcium 9.4 mg/dL (8.5-10.1); Chloride 103 mmol/L (98-107); Estimated GFR 80.97 (mL/min/1.73m2); Glucose 96 mg/dL (74-106); Potassium 3.9 mmol/L (3.5-5.1); Sodium 141 mmol/L (136-145); Total Protein 7.5 g/dL (6.4-8.2); Troponin I < 50 ng/L (< or =60)
--- NOTE | 2024-04-10 15:49 | ED.GENADUL_ITS ---
Discharge Plan Disposition Patient Disposition: Admit to [facility] Condition: Stable Discharge Details Clinical Impression: Cellulitis and abscess of foot Primary Care Provider: Renae Portillo ED Provider: Renee Muller Home Meds and New Rx's Prescriptions: No Action sildenafil 100 mg tablet See Rx Instructions PO DAILY PRN (Reason: sexual activity) Qty: 20 5RF Rx Instructions: 1/2 to 1 tab orally daily PRN; administer 30 minutes to 4 hours before activity atorvastatin 80 mg tablet 80 mg PO HS Qty: 90 3RF albuterol sulfate [ProAir HFA] 90 mcg/actuation HFA aerosol inhaler 2 puff Inhalation Q4H PRN Qty: 3 3RF calcium carbonate [Tums] 1 tab PO DIRECTED PRN (Reason: dyspepsia) (DME) nebulizers [Compact Compressor Nebulizer] Misc See Rx Instructions .Route Qty: 1 0RF Rx Instructions: Use QID as directed for SOB/wheeze albuterol sulfate 1.25 mg/3 mL solution for nebulization 1.25 mg inhalation QID PRN (Reason: shortness of breath or wheezing) Qty: 180 6RF pantoprazole 40 mg tablet,delayed release (DR/EC) 40 mg PO BID Qty: 180 3RF Trelegy Ellipta 100-62.5-25 mcg blister with device 1 inh inhalation DAILY acetaminophen [Tylenol Extra Strength] 500 mg tablet 1,000 mg PO Q6H PRN ibuprofen 200 mg capsule 400 mg PO Q6H PRN dextroamphetamine-amphetamine 20 mg tablet 20 mg PO BID MDD 40mg Qty: 60 0RF Rx Instructions: administer doses at least 4-6 hours apart Ensure Original Liquid 237 ml PO TID Qty: 90 12RF benzonatate 200 mg capsule 200 mg PO TID PRN (Reason: cough) Qty: 21 0RF albuterol sulfate 2.5 MG/3 ML solution for nebulization 1 vial Inhalation Q4H PRN Qty: 120 Rx Instructions: 0.083% Dr Suh ketorolac 10 mg tablet 10 mg PO Q4H Patient Comments: TAKE 1 TABLET BY MOUTH FOUR TIMES DAILY NEEDED FOR PAIN. NOT TO EXCEED 40 MG DAILY AND 5 DAYS DURATION FOR ALL DOSE FORMS HPI General Date/Time Provider Initiated Documentation: 04/10/24 14:07 . Limitations to Documentation: no limitations . Information obtained by: patient and old records reviewed . HPI Narrative: 68-year-old gentleman with past medical history of COPD presents for evaluation of right foot infection. Patient reports that a little over a week ago he was caught out in the recent sweating and had to walk a long distance. He states that he started having some redness and pain in his right foot shortly after that. He was seen today in the primary care clinic and then referred to podiatry. Podiatry evaluated the patient and was significantly concerned about its appearance and sent the patient to the emergency department for further evaluation. He reports progressively worsening redness, swelling and pain of his foot. He is taking Tylenol for some relief of the pain. Denies any fever or chills. Related Data Home Medications ?Medication ?Instructions ?Recorded ?Confirmed albuterol sulfate 2.5 mg/3 mL 1 vial inhalation Q4H PRN #120 01/08/16 04/10/24 (0.083 %) solution for nebulization vials fluticasone fur. 100 mcg-umeclid 1 inh inhalation DAILY 06/23/21 04/10/24 62.5 mcg-vilant 25 mcg inhalat.powder (Trelegy Ellipta) sildenafil 100 mg tablet See Rx Instructions PO DAILY PRN 02/15/22 04/10/24 sexual activity #20 tabs albuterol sulfate 90 mcg/actuation 2 puff inhalation Q4H PRN ##3 11/01/22 04/10/24 aerosol inhaler (ProAir HFA) atorvastatin 80 mg tablet 80 mg PO HS #90 tabs 11/01/22 04/10/24 calcium carbonate [Tums] 1 tab PO DIRECTED PRN dyspepsia 02/09/23 04/10/24 albuterol sulfate 1.25 mg/3 mL 1.25 mg (3 mL) inhalation QID PRN 05/04/23 04/10/24 solution for nebulization shortness of breath or wheezing #180 mL nebulizers (Compact Compressor #1 ea 05/04/23 04/10/24 Nebulizer) acetaminophen 500 mg tablet 1,000 mg PO Q6H PRN 07/06/23 04/10/24 (Tylenol Extra Strength) ibuprofen 200 mg capsule 400 mg PO Q6H PRN 07/06/23 04/10/24 pantoprazole 40 mg tablet,delayed 40 mg PO BID #180 tabs 12/07/23 04/10/24 release dextroamphetamine-amphetamine 20 20 mg PO BID #60 tabs 02/22/24 04/10/24 mg tablet food supplemt, lactose-reduced 237 ml PO TID #90 multiple units 02/22/24 04/10/24 (Ensure Original oral liquid) benzonatate 200 mg capsule 200 mg PO TID PRN cough #21 caps 03/20/24 04/10/24 ketorolac 10 mg tablet 10 mg PO Q4H 04/10/24 04/10/24 Previous Rx's ?Medication ?Instructions ?Recorded sildenafil 100 mg tablet See Rx Instructions PO DAILY PRN 02/15/22 sexual activity #20 tabs albuterol sulfate 90 mcg/actuation 2 puff inhalation Q4H PRN ##3 11/01/22 aerosol inhaler (ProAir HFA) atorvastatin 80 mg tablet 80 mg PO HS #90 tabs 11/01/22 albuterol sulfate 1.25 mg/3 mL 1.25 mg (3 mL) inhalation QID PRN 05/04/23 solution for nebulization shortness of breath or wheezing #180 mL nebulizers (Compact Compressor #1 ea 05/04/23 Nebulizer) pantoprazole 40 mg tablet,delayed 40 mg PO BID #180 tabs 12/07/23 release dextroamphetamine-amphetamine 20 20 mg PO BID #60 tabs 02/22/24 mg tablet food supplemt, lactose-reduced 237 ml PO TID #90 multiple units 02/22/24 (Ensure Original oral liquid) benzonatate 200 mg capsule 200 mg PO TID PRN cough #21 caps 03/20/24 Allergies Allergy/AdvReac Type Severity Reaction Status Date / Time No Known Allergies Allergy Verified 04/10/24 13:38 General Stated Complaint: GenMedical MOOK: 3 Exam Narrative Exam Narrative: Review of Systems: All systems reviewed & are unremarkable except as noted in HPI and below Well-developed, no acute distress Afebrile NCAT PERRL, normal conjunctiva RRR Unlabored respiratory effort Nondistended abdomen Right lower extremity with dorsal redness, swelling, extreme tenderness central area of necrosis noted, induration without clear focus of fluctuance no focal neurologic deficits Appropriate mood and affect Course Vital Signs Vital signs: Vital Signs Temperature 37.0 C 04/10/24 13:35 Pulse 96 H 04/10/24 13:35 Respiratory Rate 18 04/10/24 13:35 Pulse Oximetry 98 04/10/24 13:35 Temperature 37.0 C 04/10/24 14:04 Pulse 96 H 04/10/24 14:04 Respiratory Rate 18 04/10/24 14:04 Respiratory Effort Normal, Non-Labored 04/10/24 14:03 Respiratory Depth Normal 04/10/24 14:03 Respiratory Pattern Normal 04/10/24 14:03 Blood Pressure Position Sitting 04/10/24 14:04 Pulse Oximetry 98 04/10/24 14:04 Oxygen Delivery Method Room Air 04/10/24 14:04 Oxygen Flow Rate 0 04/10/24 14:04 Lab/Test Results Lab/Test Results: 04/10/24 13:59 Blood Blood Culture - Pending 04/10/24 14:43 Blood Blood Culture - Pending Laboratory Tests Range/Units 04/10/24 04/10/24 13:55 14:22 WBC (4.4-10.8) 10^3/uL 13.61 H RBC (4.36-5.78) 10^6/uL 3.87 L Hgb (13.5-17.5) g/dL 12.3 L Hct (40.0-50.0) % 37.4 L MCV (80-95) fL 97 H MCH (27.0-33.0) pg 31.8 MCHC (32.0-36.0) % 32.9 RDW (11.8-14.1) % 12.6 Plt Count (130-400) 10^3/uL 195 MPV (8.0-11.0) fL 10.7 Immature Gran % % 0.5 Neutrophils % % 83.2 Lymphocytes % % 9.2 Monocytes % % 5.8 Eosinophils % % 1.1 Basophils % % 0.2 Nucleated RBC % (0.0-0.3) % 0.0 Absolute Neutrophils (1.2-6.7) 10^3/uL 11.32 H Absolute Lymphocytes (1.2-3.4) 10^3/uL 1.25 Absolute Monocytes (0.1-0.8) 10^3/uL 0.79 Absolute Eosinophils (0.0-0.7) 10^3/uL 0.15 Absolute Basophils (0.0-0.2) 10^3/uL 0.03 ESR (0-20) mm/hr 25 H Sodium (136-145) mmol/L 141 Potassium (3.5-5.1) mmol/L 3.9 Chloride (98-107) mmol/L 103 Carbon Dioxide (21.0-32.0) mmol/L 28.3 Anion Gap (3-11) mmol/L 9.7 BUN (7-18) mg/dL 16 Creatinine (0.70-1.30) mg/dL 1.0 Est GFR (CKD-EPI 2020) (mL/min/1.73m2) 80.97 Glucose (74-106) mg/dL 96 Calcium (8.5-10.1) mg/dL 9.4 Total Bilirubin (0.2-1.0) mg/dL 0.39 AST (15-37) U/L 20 ALT (16-63) U/L 25 Alkaline Phosphatase (46-116) U/L 96 Troponin I (< or =60) ng/L < 50 C-Reactive Protein (<or=0.5) mg/dL 3.84 H Total Protein (6.4-8.2) g/dL 7.5 Albumin (3.4-5.0) g/dL 3.7 Medical Decision Making Emergent evaluation of right foot infection. The patient does not have diabetes but has a fairly significant foot infection. Prolonged walking, ill fitting shoes. Initial concerns include cellulitis, abscess, osteomyelitis. Likely secondary to freshwater exposure and well-fitting shoes. Last tetanus 2019, will update today. Will begin empiric antibiotic therapy. Lab work obtained. White blood cell count elevated at 13 with shift. ESR and CRP are also elevated. I discussed the patient with the housing assistant property manager and she would also concur with admission given the severe pain and appearance of his infection. She is requesting to keep the patient n.p.o. at midnight and she will take the patient to the operative room tomorrow for debridement of his foot. Discussed MRI findings with the radiologist, there does appear to be abscess without any evidence of osteomyelitis. Discussed with the hospitalist and the patient will be admitted. Medical Records Medical records reviewed: Yes I reviewed the patient's medical records. Lab Data Lab results reviewed: Yes I reviewed the patient's lab results. Quality:SDOH Health Related Social Needs: 2 No Data to Display PFSH All Active Problems (Updated 04/10/24 @ 16:08 by Renee Muller MD) Cellulitis and abscess of foot (Acute) Cellulitis (Acute) Contusion of right foot (Acute) Hematoma of right foot (Acute) Abscess of right foot (Acute) Necrosis (Acute) Foot pain, right (Acute) Right foot infection (Acute) Acute foot pain (Acute) Hyperplastic colon polyp (Acute ~08/25/23) Abdominal pain (Acute) Chest pain (Acute) Dyspnea (Acute) Dyspepsia (Acute) Nicotine dependence, cigarettes, uncomplicated (Acute) Decreased use, 03/2024, ik Blunt chest trauma (Acute) Painful respiration (Acute) Travis angioma (Acute) Seborrheic keratoses (Acute) Depressive disorder (Chronic 06/26/13) Major depressive disorder, single episode, moderate (Chronic) Depression (Chronic 10/11/17) Colorectal polyps (Acute) Anxiety (Acute 03/23/18) Chronic obstructive lung disease (Acute 06/26/13) PFT 2010: FEV1/FVC 3.61/5.13, 70% predicted Gastroesophageal reflux disease (Acute 06/26/13) Male erectile disorder (Acute 06/26/13) Osteoarthritis of knee (Acute 06/26/13) S/P (L) TKR SOB (shortness of breath) (Acute 01/09/18) Tobacco dependence (Acute 06/26/13) Elevated cholesterol (Chronic) Colonoscopy refused (Chronic) Cough (Acute) Post-traumatic stress disorder (Acute) Loss of height (Acute) SANCHEZ (dyspnea on exertion) (Acute) Weight loss (Acute) ADD (attention deficit disorder) (Acute) Surgical History History of colonoscopy (~07/2023) path sent Hx of total knee arthroplasty Left EGD - MAC (02/2023) EGD 02/03/2018 CT/head/brain w/wo contrast (01/25/18) done at [facility] 01/25/18. report in scanning Family History Father Myocardial infarction Mother No problems noted. Social History Smoking/Tobacco Use Status: Current every day Tobacco Type: cigarettes Tobacco: How many years used: 58 Smoking risk assessment performed?: Yes Alcohol Intake: former Drug use: Current Sobriety Substance use type: does not use Details: Sober since 1989 Household members: none Housing: house Number of Children: 4 Pets and animals: Yes Pets and animals: dog(s) Current gender identity: male What type of physical activity do you participate in: none and walking Duration: 15-30 minutes/day Frequency: daily Do you feel safe at home: Yes (Lives alone) Additional Social history: lives alone
--- NOTE | 2024-04-10 15:50 | DI.MRI_ITS ---
Exam(s) MR LOWER EXTREMITY RT WO/W EXAM: MR LOWER EXTREMITY RT WO/W CLINICAL HISTORY: foot infection TECHNIQUE: Multiplanar multisequence MRI was performed both pre and post contrast infused sequences. . Chest injection was IV 13 mL Dotarem COMPARISON: There are no plain films available at the time of this MRI interpretation. FINDINGS: MARROW:There is no evidence of fracture, bone contusion, nor avascular necrosis. There are no signif icant osseous lesions. There is significant edema over the dorsal aspect of the foot and with epicenter of infection appeari ng between the 3rd and 4th toes with tract-probable abscess at this level. However, there is no sign ificant intraosseous edema nor enhancement within the adjacent phalanges of the 3rd and 4th toes nor within the adjacent metatarsal heads and there is no confluent hypointense T1 signal on precontrast T 1 sequences to suggest osteomyelitis. No erosions. Incidentally noted is advanced degenerative change in the great toe metatarsophalangeal joint. Other MTP joints appear unremarkable. Metatarsal bases and Lisfranc joint/tarsometatarsal joints appear i ntact and there is no abnormal signal nor enhancement within the cuneiform and cuboid bones MUSCLES: There is no evidence of abnormal signal nor mass in the visualized muscles. EXTRAMUSCULAR SOFT TISSUES: No abnormal signal, mass, or fluid collection. OTHER: No evidence of Flores's interdigital neuroma. Mild interdigital fluid noted between the heads of the 3rd and 4th metatarsals. Consistent with mild interdigital bursitis at this level versus is extension of inferior axis process IMPRESSION: 1. Soft tissue infection tract suspicious for abscess in the web tissue between the 3rd and 4th toes measuring approximately 2.3 x 0.9 cm. Significant surrounding soft tissue edema but no obvious evide nce of osteomyelitis at this time in the adjacent phalanges of the 3rd and 4th toes nor within the me tatarsals. There is no susceptibility artifact producing foreign body at this level. 2. Advanced degenerative changes noted in the great toe metatarsophalangeal joint. By myself to ER physician DATA REPOSITORY:
--- NOTE | 2024-04-10 16:14 | HPE_ITS ---
Date of service: 04/10/24 Time of Service: 16:14 Assessment and Plan Assessment and plan (1) Cellulitis and abscess of foot: Status: Acute Assessment and plan: Admit to the medical surgical unit under hospitalist services MRI results pending Podiatry following and planned OR procedure in the a.m. for I&D/debridement Continue vancomycin and cefepime Will be n.p.o. after midnight (2) Chronic obstructive lung disease: Status: Acute Assessment and plan: No acute exacerbation continue home inhalers Qualifiers: COPD type: emphysema Emphysema type: centrilobular Qualified Code(s): J43.2 - Centrilobular emphysema (3) Tobacco dependence: Status: Acute Assessment and plan: Nicotine replacement while hospitalized as needed History of Present Illness History of Present Illness Chief Complaint: right foot cellulitis Narrative: This is a 68-year-old male with a past medical history significant for COPD well-controlled, tobacco abuse who presents with redness swelling and pain of his right foot that has been worsening over the past 2 weeks. He was seen in the emergency department at an outside hospital and then referred to podiatry who referred him here for the emergency department evaluation. He underwent MRI to better evaluate and was started on Vanco and cefepime. Plan is for OR debridement in the morning. He is being admitted to hospitalist services overnight. He has had no fever no chills but progressive pain swelling and erythema to the right dorsal aspect of his foot Review of Systems All systems reviewed & are unremarkable except as noted in HPI and below PFSH All Active Problems (Updated 04/10/24 @ 16:08 by Renee Muller MD) Cellulitis and abscess of foot (Acute) Cellulitis (Acute) Contusion of right foot (Acute) Hematoma of right foot (Acute) Abscess of right foot (Acute) Necrosis (Acute) Foot pain, right (Acute) Right foot infection (Acute) Acute foot pain (Acute) Hyperplastic colon polyp (Acute ~08/25/23) Abdominal pain (Acute) Chest pain (Acute) Dyspnea (Acute) Dyspepsia (Acute) Nicotine dependence, cigarettes, uncomplicated (Acute) Decreased use, 03/2024, ik Blunt chest trauma (Acute) Painful respiration (Acute) Travis angioma (Acute) Seborrheic keratoses (Acute) Depressive disorder (Chronic 10/29/13) Major depressive disorder, single episode, moderate (Chronic) Depression (Chronic 10/11/17) Colorectal polyps (Acute) Anxiety (Acute 03/23/18) Chronic obstructive lung disease (Acute 06/26/13) PFT 2010: FEV1/FVC 3.61/5.13, 70% predicted Gastroesophageal reflux disease (Acute 06/26/13) Male erectile disorder (Acute 06/26/13) Osteoarthritis of knee (Acute 06/26/13) S/P (L) TKR SOB (shortness of breath) (Acute 01/09/18) Tobacco dependence (Acute 06/26/13) Elevated cholesterol (Chronic) Colonoscopy refused (Chronic) Cough (Acute) Post-traumatic stress disorder (Acute) Loss of height (Acute) SANCHEZ (dyspnea on exertion) (Acute) Weight loss (Acute) ADD (attention deficit disorder) (Acute) Surgical History History of colonoscopy (~07/2023) path sent Hx of total knee arthroplasty Left EGD - MAC (02/2023) EGD 02/03/2018 CT/head/brain w/wo contrast (01/25/18) done at [facility] 01/25/18. report in scanning Family History Father Myocardial infarction Mother No problems noted. Social History Smoking/Tobacco Use Status: Current every day Tobacco Type: cigarettes Tobacco: How many years used: 58 Smoking risk assessment performed?: Yes Alcohol Intake: former Drug use: Current Sobriety Substance use type: does not use Details: Sober since 1989 Household members: none Housing: house Number of Children: 4 Pets and animals: Yes Pets and animals: dog(s) Current gender identity: male What type of physical activity do you participate in: none and walking Duration: 15-30 minutes/day Frequency: daily Do you feel safe at home: Yes (Lives alone) Additional Social history: lives alone Meds Allergies and Home Medications Allergies Allergy/AdvReac Type Severity Reaction Status Date / Time No Known Allergies Allergy Verified 04/10/24 13:38 Home Medications ?Medication ?Instructions ?Recorded ?Confirmed ?Type albuterol sulfate 2.5 mg/3 mL 1 vial inhalation Q4H PRN #120 01/08/16 04/10/24 History (0.083 %) solution for nebulization vials fluticasone fur. 100 mcg-umeclid 1 inh inhalation DAILY 06/23/21 04/10/24 History 62.5 mcg-vilant 25 mcg inhalat.powder (Trelegy Ellipta) sildenafil 100 mg tablet See Rx Instructions PO DAILY PRN 02/15/22 04/10/24 Rx sexual activity #20 tabs albuterol sulfate 90 mcg/actuation 2 puff inhalation Q4H PRN ##3 11/01/22 04/10/24 Rx aerosol inhaler (ProAir HFA) atorvastatin 80 mg tablet 80 mg PO HS #90 tabs 11/01/22 04/10/24 Rx calcium carbonate [Tums] 1 tab PO DIRECTED PRN dyspepsia 02/09/23 04/10/24 History albuterol sulfate 1.25 mg/3 mL 1.25 mg (3 mL) inhalation QID PRN 05/04/23 04/10/24 Rx solution for nebulization shortness of breath or wheezing #180 mL nebulizers (Compact Compressor #1 ea 05/04/23 04/10/24 Rx Nebulizer) acetaminophen 500 mg tablet 1,000 mg PO Q6H PRN 07/06/23 04/10/24 History (Tylenol Extra Strength) ibuprofen 200 mg capsule 400 mg PO Q6H PRN 07/06/23 04/10/24 History pantoprazole 40 mg tablet,delayed 40 mg PO BID #180 tabs 12/07/23 04/10/24 Rx release dextroamphetamine-amphetamine 20 20 mg PO BID #60 tabs 02/22/24 04/10/24 Rx mg tablet food supplemt, lactose-reduced 237 ml PO TID #90 multiple units 02/22/24 04/10/24 Rx (Ensure Original oral liquid) benzonatate 200 mg capsule 200 mg PO TID PRN cough #21 caps 03/20/24 04/10/24 Rx ketorolac 10 mg tablet 10 mg PO Q4H 04/10/24 04/10/24 History Exam Narrative Exam Narrative: This is a well-appearing thin gentleman of stated age in no acute distress head is atraumatic eyes nonicteric noninjected neck is supple full range of motion no JVD cardiovascular regular rate and rhythm respirations are even and unlabored abdomen is benign he moves all extremities he does have a area of erythema and swelling to the dorsum aspect of his right foot there is approximately 3 cm area of over the fourth metatarsal that is bluish in color. Left lower extremity with no edema. No other rashes or lesions noted hemodynamically he is stable and afebrile neurologic he is awake alert oriented psychiatric normal mood and affect Results Labs 04/10/24 13:55 04/10/24 13:55 Labs: Laboratory Results - last 24 hr 04/10/24 04/10/24 13:55 14:22 WBC 13.61 H RBC 3.87 L Hgb 12.3 L Hct 37.4 L MCV 97 H MCH 31.8 MCHC 32.9 RDW 12.6 Plt Count 195 MPV 10.7 Immature Gran % 0.5 Neutrophils % 83.2 Lymphocytes % 9.2 Monocytes % 5.8 Eosinophils % 1.1 Basophils % 0.2 Nucleated RBC % 0.0 Absolute Neutrophils 11.32 H Absolute Lymphocytes 1.25 Absolute Monocytes 0.79 Absolute Eosinophils 0.15 Absolute Basophils 0.03 ESR 25 H Sodium 141 Potassium 3.9 Chloride 103 Carbon Dioxide 28.3 Anion Gap 9.7 BUN 16 Creatinine 1.0 Est GFR (CKD-EPI 2020) 80.97 Glucose 96 Calcium 9.4 Total Bilirubin 0.39 AST 20 ALT 25 Alkaline Phosphatase 96 Troponin I < 50 C-Reactive Protein 3.84 H Total Protein 7.5 Albumin 3.7 Last Vital Signs Temp 37.0 C 04/10/24 14:04 Pulse 88 04/10/24 16:08 Resp 18 04/10/24 16:08 BP 148/80 H 04/10/24 16:08 Pulse Ox 96 04/10/24 16:08 Time Spent Time spent with Patient: 55-74 minutes Time was spent: preparing to see the patient(eg.review tests), obtaining and/or reviewing separately otained hiistory, ordering medications,tests, procedures, indepentently interpreting results and counseling the patient
[2024-04-10] MEDS: CEFEPIME 2 GM in Normal Saline 100 ML IVPB (16:22)
[2024-04-10] MEDS: VANCOMYCIN/WATER (PEG) 1.5 GM/300 ML BAG IVPB (17:18)
[2024-04-10] MEDS: Acetaminophen 500 MG TAB 1000 MG PO (17:24)
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
[2024-04-10] MEDS: Budesonide/Formoterol 80/4.5 6.9 GM 60 PUFF INH IH (20:29)
[2024-04-10] MEDS: Normal Saline Flush 10 ML SYR IVP (20:52)
[2024-04-10] MEDS: Atorvastatin 40 MG TAB 80 MG PO (20:52)
[2024-04-10] MEDS: Pantoprazole 40 MG TABCR PO (20:52)
[2024-04-10] MEDS: Lactated Ringers 1,000 ML 80 ML IV (22:16)
[2024-04-11] VITALS (30 sets, daily range): BP systolic 101–133; BP diastolic 52–94; PULSE 60–83; RESP 9–24; TEMP 36.1–36.6; O2SAT 94–98; BMI 20.6
--- NOTE | 2024-04-11 | DI.RAD_ITS ---
Exam(s) XR FOOT RT COMPLETE EXAM: XR FOOT RT COMPLETE CLINICAL HISTORY: Abscess. TECHNIQUE: 2D digital imaging was performed of the right foot. Three images were obtained. AP, obl ique and lateral views were obtained. COMPARISON: No exams were available for comparison FINDINGS: BONES: No acute fracture is present. No bony destructive lesion is seen. JOINTS: No dislocation present. There are degenerative changes seen at the 1st MTP joint characterize d by joint space narrowing and osteophytes. The joint spaces are otherwise well maintained. SOFT TISSUE: There is soft tissue swelling of the foot. No soft tissue gas is identified. IMPRESSION: 1. Soft tissue swelling of the right forefoot. No soft tissue gas is present. 2. No radiographic evidence to suggest osteomyelitis. 3. Degenerative changes seen at the 1st MTP joint. DATA REPOSITORY: RADIATION DOSE DELIVERED:
[2024-04-11] MEDS: CEFEPIME 2 GM in Normal Saline 100 ML IVPB ×3 (00:11→15:31)
[2024-04-11] MEDS: Acetaminophen 500 MG TAB 1000 MG PO ×3 (04:08→22:35)
[2024-04-11] MEDS: VANCOMYCIN/WATER (PEG) 750 MG/150 ML BAG 150 MG IVPB ×2 (04:16→17:04)
[2024-04-11 06:29] LABS: Abs Immature Grans 0.04 10^3/uL (0.0-0.06); Absolute Basophil Count 0.02 10^3/uL (0.0-0.2); Absolute Eosinophil Count 0.26 10^3/uL (0.0-0.7); Absolute Lymphocyte Count 1.47 10^3/uL (1.2-3.4); Absolute Monocyte Count 0.83 10^3/uL (0.1-0.8); Basophils % 0.2 %; Eosinophils % 2.4 %; HCT 34.3 % (40.0-50.0); HGB 11.4 g/dL (13.5-17.5); Immature Grans % 0.4 %; Lymphocytes % 13.8 %; MCH 31.4 pg (27.0-33.0); MCHC 33.2 % (32.0-36.0); MCV 95 fL (80-95); MPV 10.5 fL (8.0-11.0); Monocytes % 7.8 %; Neutrophils % 75.4 %; Platelet Count 164 10^3/uL (130-400); RBC 3.63 10^6/uL (4.36-5.78); RDW 12.6 % (11.8-14.1); RDW-SD 43.5 fL; WBC 10.62 10^3/uL (4.4-10.8)
[2024-04-11 06:40] LABS: Anion Gap 9.7 mmol/L (3-11); BUN 16 mg/dL (7-18); CO2 26.3 mmol/L (21.0-32.0); Calcium 9.3 mg/dL (8.5-10.1); Chloride 105 mmol/L (98-107); Estimated GFR 80.97 (mL/min/1.73m2); Glucose 94 mg/dL (74-106); Potassium 4.6 mmol/L (3.5-5.1); Sodium 141 mmol/L (136-145)
[2024-04-11 06:59] LABS: Vancomycin, Random 21.7 ug/mL
[2024-04-11] MEDS: Tiotropium Bromide-Respimat 10 PUFF INH 2 PUFF IH (08:40)
[2024-04-11] MEDS: Budesonide/Formoterol 80/4.5 6.9 GM 60 PUFF INH IH ×2 (08:41→20:57)
[2024-04-11] MEDS: Normal Saline Flush 10 ML SYR IVP ×2 (08:55→20:15)
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
--- NOTE | 2024-04-11 11:49 | W.ANESPRE ---
General Info Date of Service Date Performed: 04/11/24 Height: 5 ft 11 in Weight: 67.132 kg Body Mass Index (BMI): 20.6 Surgical Procedure: Operation Date: 04/11/24 12:10 Proposed Procedure Side Surgeon p I&D Foot Right Wendy Trevino DPM Meds Allergies and Home Medications Allergies Allergy/AdvReac Type Severity Reaction Status Date / Time No Known Allergies Allergy Verified 04/10/24 13:38 Home Medication ?Medication ?Instructions ?Recorded albuterol sulfate 2.5 mg/3 mL 1 vial inhalation Q4H PRN #120 01/08/16 (0.083 %) solution for nebulization vials fluticasone fur. 100 mcg-umeclid 1 inh inhalation DAILY 06/23/21 62.5 mcg-vilant 25 mcg inhalat.powder (Trelegy Ellipta) sildenafil 100 mg tablet See Rx Instructions PO DAILY PRN 02/15/22 sexual activity #20 tabs albuterol sulfate 90 mcg/actuation 2 puff inhalation Q4H PRN ##3 11/01/22 aerosol inhaler (ProAir HFA) atorvastatin 80 mg tablet 80 mg PO HS #90 tabs 11/01/22 calcium carbonate [Tums] 1 tab PO DIRECTED PRN dyspepsia 02/09/23 albuterol sulfate 1.25 mg/3 mL 1.25 mg (3 mL) inhalation QID PRN 05/04/23 solution for nebulization shortness of breath or wheezing #180 mL nebulizers (Compact Compressor #1 ea 05/04/23 Nebulizer) acetaminophen 500 mg tablet 1,000 mg PO Q6H PRN 07/06/23 (Tylenol Extra Strength) ibuprofen 200 mg capsule 400 mg PO Q6H PRN 07/06/23 pantoprazole 40 mg tablet,delayed 40 mg PO BID #180 tabs 12/07/23 release dextroamphetamine-amphetamine 20 20 mg PO BID #60 tabs 02/22/24 mg tablet benzonatate 200 mg capsule 200 mg PO TID PRN cough #21 caps 03/20/24 ketorolac 10 mg tablet 10 mg PO Q4H 04/10/24 Current Visit Medications: Current Medications Generic Name Dose Route Start Last Admin Trade Name Freq PRN Reason Stop Dose Admin Acetaminophen 1,000 mg 04/10/24 17:08 04/11/24 04:08 Acetaminophen 500 Mg Tab PO 1,000 mg Q6H PRN PRN Administration Albuterol Sulfate 2 puff 04/10/24 17:08 Albuterol Hfa 8 Gm 60 Puff Inh IH Q4H PRN PRN Atorvastatin Calcium 80 mg 04/10/24 20:00 04/10/24 20:52 Atorvastatin 40 Mg Tab PO 80 mg HS JANUSZ Administration Benzonatate 200 mg 04/10/24 17:08 Benzonatate 200 Mg Cap PO TID PRN PRN cough Budesonide/Formoterol Fumarate 0 puff 04/10/24 20:00 04/11/24 08:41 Budesonide/Formoterol 80/4.5 6.9 Gm 60 Puff Inh IH 2 puffs BID JANUSZ Administration Calcium Carbonate 500 mg 04/10/24 19:59 Calcium Carbonate *Tums* 500 Mg Chew PO Q3H PRN PRN dyspepsia Device 1 each 04/10/24 17:08 Inhaler, Assist Device MC DIRECTED JANUSZ Ringer's Solution 1,000 mls @ 80 mls/hr 04/10/24 22:00 04/10/24 22:16 IV 80 mls/hr INFUSION JANUSZ Administration Cefepime HCl 2 gm/ Sodium 100 mls @ 200 mls/hr 04/11/24 00:00 04/11/24 09:52 Chloride IVPB Infused Q8H [facility] Infusion Vancomycin/PEG/NADA/Lysine/Water 750 mg in 150 mls @ 150 mls/hr 04/11/24 16:00 Vancocin Injection IVPB Q12H [facility] IV Miscellaneous Supplies 1 each 04/11/24 10:00 Iv Access IV DIRECTED JANUSZ Nicotine 21 mg 04/11/24 08:30 04/11/24 08:52 Nicotine 21 Mg/24 Hr Patch TD Not Given DAILY JANUSZ Pantoprazole Sodium 40 mg 04/10/24 20:00 04/11/24 08:53 Pantoprazole 40 Mg Tabcr PO Not Given BID@0730,2000 JANUSZ Sodium Chloride 0 ml 04/10/24 20:00 04/11/24 08:55 Normal Saline Flush 10 Ml Syr IVP 10 ml BID JANUSZ Administration Sodium Chloride 0 ml 04/10/24 14:22 Normal Saline 10 Ml Vial IJ DIRECTED PRN Sodium Chloride 0 ml 04/10/24 14:22 Normal Saline Flush 10 Ml Syr IVP PRN PRN Tiotropium Banks 2 puff 04/11/24 08:30 04/11/24 08:40 Tiotropium Banks-Respimat 10 Puff Inh IH 2 puffs DAILY JANUSZ Administration PFSH Active Problems Active Problems: Problem Status Onset Code Cellulitis and abscess of foot Acute L03.119, L02.619 Cellulitis Acute L03.90 Contusion of right foot Acute S90.31XA Hematoma of right foot Acute S90.31XA Abscess of right foot Acute L02.611 Necrosis Acute I96 Foot pain, right Acute M79.671 Right foot infection Acute L08.9 Acute foot pain Acute M79.673 Hyperplastic colon polyp Acute ~08/25/23 K63.5 Abdominal pain Acute R10.9 Chest pain Acute R07.9 Dyspnea Acute R06.00 Dyspepsia Acute R10.13 Nicotine dependence, cigarettes, uncomplicated Acute F17.210 Blunt chest trauma Acute S29.8XXA Painful respiration Acute R07.1 Travis angioma Acute D18.01 Seborrheic keratoses Acute L82.1 Depressive disorder Chronic 06/26/13 F32.9 Major depressive disorder, single episode, moderate Chronic F32.1 Depression Chronic 10/11/17 F32.9 Colorectal polyps Acute K63.5 Anxiety Acute 03/23/18 F41.9 Chronic obstructive lung disease Acute 06/26/13 J44.9 Gastroesophageal reflux disease Acute 06/26/13 K21.9 Male erectile disorder Acute 06/26/13 N52.9 Osteoarthritis of knee Acute 06/26/13 M17.10 SOB (shortness of breath) Acute 01/09/18 R06.02 Tobacco dependence Acute 06/26/13 F17.200 Elevated cholesterol Chronic E78.00 Colonoscopy refused Chronic Z53.20 Cough Acute R05 Post-traumatic stress disorder Acute F43.10 Loss of height Acute SANCHEZ (dyspnea on exertion) Acute R06.09 Weight loss Acute R63.4 ADD (attention deficit disorder) Acute F98.8 Surgical History Surgical History History of colonoscopy (~07/2023) path sent Hx of total knee arthroplasty Left EGD - MAC (02/2023) EGD 02/03/2018 CT/head/brain w/wo contrast (01/25/18) done at [facility] 01/25/18. report in scanning Tobacco Smoking/Tobacco Use Status: Current every day Tobacco Type: cigarettes Smoking cigarettes per day: 10 Alcohol Alcohol Intake: former Substance Use Substance use: Current Sobriety Substance use type: does not use Details: Sober since 1989 Vital Signs and Lab Results Vital Signs Most Recent Vital Signs in EMR: Most Recent Vital Signs Temp Pulse Resp BP Pulse Ox 36.4 C L 83 15 110/72 95 04/11/24 07:51 04/11/24 07:51 04/11/24 07:51 04/11/24 07:51 04/11/24 07:51 Lab Results 04/11/24 06:14 04/11/24 06:14 Blood Type / Crossmatch: No Data to Display Complete Blood Count: White Blood Count 10.62 10^3/uL (4.4-10.8) 04/11/24 06:14 Red Blood Count 3.63 10^6/uL (4.36-5.78) L 04/11/24 06:14 Hemoglobin 11.4 g/dL (13.5-17.5) L 04/11/24 06:14 Hematocrit 34.3 % (40.0-50.0) L 04/11/24 06:14 Platelet Count 164 10^3/uL (130-400) 04/11/24 06:14 Complete Metabolic Panel: Sodium 141 mmol/L (136-145) 04/11/24 06:14 Potassium 4.6 mmol/L (3.5-5.1) 04/11/24 06:14 Chloride 105 mmol/L (98-107) 04/11/24 06:14 Carbon Dioxide 26.3 mmol/L (21.0-32.0) 04/11/24 06:14 BUN 16 mg/dL (7-18) 04/11/24 06:14 Creatinine 1.0 mg/dL (0.70-1.30) 04/11/24 06:14 Est GFR (CKD-EPI 2020) 80.97 (mL/min/1.73m2) 04/11/24 06:14 Calcium 9.3 mg/dL (8.5-10.1) 04/11/24 06:14 Albumin 3.7 g/dL (3.4-5.0) 04/10/24 13:55 Glucose 94 mg/dL (74-106) 04/11/24 06:14 C-Reactive Protein 3.84 mg/dL (<or=0.5) H 04/10/24 13:55 Liver Function Panel: Alanine Aminotransferase (ALT/SGPT) 25 U/L (16-63) 04/10/24 13:55 Aspartate Amino Transf (AST/SGOT) 20 U/L (15-37) 04/10/24 13:55 Coagulation Panel: No Data to Display Cardiac Panel: Troponin I < 50 ng/L (< or =60) 04/10/24 Arterial Blood Gas: No Data to Display Venous Blood Gas: No Data to Display Pancreas Panel: No Data to Display Thyroid Panel: No Data to Display Infectious Disease: No Data to Display Blood Cultures: No Data to Display Toxicology Panel: No Data to Display Imaging and Studies Imaging and Studies Study information below may be from another EMR and interpreted by another provider. Please see original notes in EMR for more complete details. EKG Summary: DATE/TIME OF SERVICE: 08/04/22 0933 : 4PERFORMING LOCATION: [facility] APPROVED REPORT Exam: Resting ECG Reason for Exam: chest pain Patient Location: O HR:89 bpm ECG Measurements Heart Rate 89 AXIS AK 140 P 79 QRSd 104 QRS 82 QT 366 T63 QTc 446 Conclusion Sinus rhythm...normal P axis, V-rate 50- 99 Borderline right axis deviation...QRS axis ( 81, 90) Minimal ST elevation, anterior leads...ST >0.10mV, V1-V4 Stress Test Summary: 08/24/22:Stress ECG Conclusion 1. The resting electrocardiogram was within normal limits 2. Patient exercised on the Chay protocol and completed a workload of 10.17 METS, limited by fatigue. 3. Normal heart rate and blood pressure response to exercise. Patient achieved 96% of predicted heart rate for age 4. There was no electrocardiographic evidence of myocardial ischemia 5. There were no significant dysrhythmias Connor Treadmill Score is 8.1 which is Low risk. Echocardiogram Summary: Date of Exam: 08/13/22Sex: M Admission Date: 08/13/22 : 1955 Age: 66 APPROVED REPORT EXAM: Comprehensive 2D, Doppler, and color-flow Echocardiogram Patient Location: Out-Patient Inspector [employer]: Kary Chamorro RDCS (AE) Indications: non exertional chest pain Other Information Study Quality: Fair. Technically limited study due to body habitus smoker. Conclusion Normal left ventricular wall thickness and chamber size. Estimated ejection fraction is 55%. Wall motion appears normal Normal right ventricular size and systolic function Both atria are normal in size There is no structural or hemodynamically significant valvular disease Pulmonary Function Summary: DATE OF SERVICE: December 24, 2015 PRIMARY CARE PROVIDER: Beryl Gardner NP INTERPRETATION OF STUDY: Spirometry shows mild obstructive airways disease with no significant bronchodilator response. LUNG VOLUMES: Show no evidence of restriction. DIFFUSION CAPACITY: Moderately reduced even when corrected to alveolar volume. AIRWAYS RESISTANCE: Poorly conducted; test cannot be interpreted. IMPRESSION: Mild obstructive airways disease with no significant bronchodilator response. This is associated with moderate diffusion defect. Clinical correlation recommended. Anesthesia Assessment and Plan Anesthesia History Personal History: No History of Anesthesia Complications Family History: No Family History of Anesthesia Complications Exercise Tolerance Exercise Tolerance: Metabolic Equivalents>4 Pertinent Negatives Pertinent Negatives: No Symptoms of GERD, No Major Cardiovascular Symptoms or Complaints, No Major Pulmonary Symptoms or Complaints and Other (used normal home inhalers today, breathing at baseline per patient, still a smoker) Cardiac & Pulmonary Exam Cardiac Exam: Normal S1/S2 Heart Sounds Pulmonary Exam: Clear Bilateral Breath Sounds Implantable Cardiac Device Does patient have a Pacemaker or an ICD?: No Airway Exam Known Difficult Airway: No Mallampati Class: 1 Mouth Opening: Normal (> 3cm) Thyromental Distance: Less than 3 cm Neck Range of Motion: Full ROM Neck Circumference: Normal Teeth Condition: Removable Dentures/Plates Upper, Removable Dentures/Plates Lower and Edentulous ASA Classification ASA Score: ASA 2 Emergency Case?: No NPO Status NPO Status: NPO Clears >2 hours, Solids >8 hours Anesthesia Plan Resuscitation Status: Full Code Anesthesia Technique: General Anesthesia Airway Planned: Natural Airway Monitors Used: Standard Monitors
--- NOTE | 2024-04-11 12:06 | PGE_ITS ---
Date of Service Date of service: 04/11/24 Time of Service: 12:06 Assessment and Plan Assessment and plan (1) Cellulitis and abscess of foot: Status: Acute Assessment and plan: MRI showing abscess Podiatry following and planned OR procedure today at noon for I&D/debridement Continue vancomycin and cefepime Will be n.p.o. after midnight (2) Chronic obstructive lung disease: Status: Acute Assessment and plan: No acute exacerbation continue home inhalers Qualifiers: COPD type: emphysema Emphysema type: centrilobular Qualified Code(s): J43.2 - Centrilobular emphysema (3) Tobacco dependence: Status: Acute Assessment and plan: Nicotine replacement while hospitalized as needed Subjective Subjective Patient reports: no new complaints, voiding w/o difficulty and afebrile; denies diarrhea or vomiting Interval history since last seen: Patient went to the OR with podiatry - see their note Exam Narrative Exam Narrative: This is a well-appearing thin gentleman of stated age in no acute distress head is atraumatic eyes nonicteric noninjected neck is supple full range of motion no JVD cardiovascular regular rate and rhythm respirations are even and unlabored abdomen is benign he moves all extremities he does have a area of erythema and swelling to the dorsum aspect of his right foot there is approximately 3 cm area of over the fourth metatarsal that is bluish in color. Left lower extremity with no edema. No other rashes or lesions noted hemodynamically he is stable and afebrile neurologic he is awake alert oriented psychiatric normal mood and affect Objective Last Vital Signs Temp 36.4 C L 04/11/24 07:51 Pulse 83 04/11/24 07:51 Resp 15 04/11/24 07:51 BP 110/72 04/11/24 07:51 Pulse Ox 95 04/11/24 07:51 Laboratory Results - last 24 hr 04/10/24 04/10/24 04/11/24 13:55 14:22 06:14 WBC 13.61 H 10.62 RBC 3.87 L 3.63 L Hgb 12.3 L 11.4 L Hct 37.4 L 34.3 L MCV 97 H 95 MCH 31.8 31.4 MCHC 32.9 33.2 RDW 12.6 12.6 Plt Count 195 164 MPV 10.7 10.5 Immature Gran % 0.5 0.4 Neutrophils % 83.2 75.4 Lymphocytes % 9.2 13.8 Monocytes % 5.8 7.8 Eosinophils % 1.1 2.4 Basophils % 0.2 0.2 Nucleated RBC % 0.0 0.0 Absolute Neutrophils 11.32 H 8.00 H Absolute Lymphocytes 1.25 1.47 Absolute Monocytes 0.79 0.83 H Absolute Eosinophils 0.15 0.26 Absolute Basophils 0.03 0.02 ESR 25 H Sodium 141 141 Potassium 3.9 4.6 Chloride 103 105 Carbon Dioxide 28.3 26.3 Anion Gap 9.7 9.7 BUN 16 16 Creatinine 1.0 1.0 Est GFR (CKD-EPI 2020) 80.97 80.97 Glucose 96 94 Calcium 9.4 9.3 Total Bilirubin 0.39 AST 20 ALT 25 Alkaline Phosphatase 96 Troponin I < 50 C-Reactive Protein 3.84 H Total Protein 7.5 Albumin 3.7 Random Vancomycin 21.7 Time Spent with Patient Time Spent with Patient: 25-34 minutes Time was spent: preparing to see the patient(eg.review tests), ordering me dications,tests, procedures, referring, communicating with other health home child care provider, indepentently interpreting results, counseling the patient and care coordination
[2024-04-11] MEDS: Lidocaine 1% Pres-Free 30 ML VIAL (12:30)
[2024-04-11] MEDS: Lactated Ringers 1,000 ML 80 ML IV (13:00)
--- NOTE | 2024-04-11 13:05 | W.PM.OP ---
Date of service: 04/11/24 Time of Service: 13:05 Operative Note Operative Note DATE OF PROCEDURE: 04/11/24 PRE-OP DIAGNOSIS: Abscess, right foot POST-OP DIAGNOSIS: same PROCEDURE: Incision and drainage with debridement of necrotic tissue, right foot SURGEON: Wendy Trevino ANESTHESIA TYPE: Local By Surgeon (10 mL 1% lidocaine plain preop) Refer to Anesthesia Record ESTIMATED BLOOD LOSS: 5 PATHOLOGY: other (Soft tissue cultures, right foot) TOURNIQUET TIME: 17 COMPLICATIONS: None Patient was transported to: PACU Patient's condition: stable Indications: This is a 68-year-old male patient with an abscess as confirmed with MRI to the right foot. I recommended an OR incision and drainage with debridement of necrotic tissue to the right foot. Patient understood and agreed. Consent form was signed reviewed in chart. No contraindications to the procedure noted at this time. Findings: Purulent drainage noted to the right third interspace with the wound extending into the webspace of the right third and fourth toes. The abscess is noted to extend to the dorsal aspect of the third and fourth metatarsal heads. Procedure Description: Patient was identified in preop holding. Consent form was signed reviewed in chart. Site was marked. Patient was brought to the operating room placed on operating table in supine position with the anesthesia team. After induction of general anesthesia, an ankle tourniquet was around applied around the right ankle. A local block was performed around the surgical site using 10 mL of 1% lidocaine plain. This right lower extremity was then scrubbed, prepped and draped in usual aseptic manner. Timeout was carried out. Attention was directed to the dorsal aspect of the right foot at the third interspace with some soft tissue necrosis and erythema as well as bogginess and induration is noted. A linear incision was made using a sterile #15 blade which was made full-thickness immediately revealing seropurulent drainage. All purulence was expressed. The site was then flushed with sterile saline. The site was then explored and noted to extend to the dorsal aspect of the third and fourth metatarsal heads all necrotic nonviable tissue was removed today using sterile rongeurs. Tissue specimens were sent to pathology. Soft tissue cultures were taken and sent as well. The site was then inspected again for out of the necrotic tissue dorsally there was some necrotic tissue noted which was then resected again with sterile #15 blade. The tourniquet was deflated. No evidence for active bleeders noted some bleeding was noted to the incision site. The surgical site was then flushed with sterile saline via cystoscopy tubing using a 3 L saline bag. Dressings were then applied with Betadine soaked packing gauze, 4 x 4, ABD pad, Kerlix, Paul wrap. Patient tolerated the procedure and anesthesia well with antibiotics and stable vascular status intact to the right lower extremity. Patient was transferred to PACU for further monitoring. To be transferred back to the floor when stable. Nursing may reinforce dressings as needed. Patient may keep the right lower extremity elevated at all times. Will plan on delayed primary closure on Tuesday
[2024-04-11] MEDS: fentaNYL 100 MCG/2 ML VIAL IVP ×3 (13:27→13:41)
--- NOTE | 2024-04-11 13:28 | PHA.REVIEW2 ---
Pharmacy Admission Review Admission Clinical Review Admission Pharmacy Review: Cellulitis and abscess of foot (Acute) Cellulitis (Acute) Contusion of right foot (Acute) Hematoma of right foot (Acute) Abscess of right foot (Acute) Foot pain, right (Acute) Right foot infection (Acute) Nicotine dependence, cigarettes, uncomplicated (Acute) Chronic obstructive lung disease (Acute 06/26/13) Tobacco dependence (Acute 06/26/13) No Known Allergies Allergy (Verified 04/10/24 13:38) Resuscitation Status Full Code Height 5 ft 11 in Weight 67.132 kg Comments Comments/Follow Ups: Follow up regarding DVT prophylaxis once postop. Adderall home med missing Pharmacy Admission Review Renal Dosing Renal Dosing: BUN 16 mg/dL (7-18) 04/11/24 06:14 Creatinine 1.0 mg/dL (0.70-1.30) 04/11/24 06:14 Medications needing adjustments: Reviewed (CrCl 65.27 mL/min) List of meds needing interventions: Current medications are okay Anticoagulation Anticoagulation: Hgb 11.4 g/dL (13.5-17.5) L 04/11/24 06:14 Hct 34.3 % (40.0-50.0) L 04/11/24 06:14 Plt Count 164 10^3/uL (130-400) 04/11/24 06:14 Creatinine 1.0 mg/dL (0.70-1.30) 04/11/24 06:14 DVT Prophylaxis: Reviewed (None at this time - procedure today, Hgb decreased from 12.3) Relevant Labs Relevant Labs: ESR 25 mm/hr (0-20) H 04/10/24 14:22 Sodium 141 mmol/L (136-145) 04/11/24 06:14 Potassium 4.6 mmol/L (3.5-5.1) 04/11/24 06:14 Chloride 105 mmol/L (98-107) 04/11/24 06:14 C-Reactive Protein 3.84 mg/dL (<or=0.5) H 04/10/24 13:55 Electrolytes, C-Reactive P, ESR: Reviewed Cardiac Review Cardiac Review: Troponin I < 50 ng/L (< or =60) 04/10/24 13:55 BP, HR, EF%: Reviewed (BP and HR WNL) QTc Review QTc: Reviewed (446 from 08/04/22 - most recent EKG on file) IV to PO Switch IV Medications: Reviewed (Cefepime and vancomycin. NPO for procedure today.) Home Meds Home Med List reviewed: Reviewed Relevent Home Meds Not ordered & why?: Adderall, Trelegy (substituted with Symbicort and Spiriva per pharmacy protocol), ketorolac (PRN) and sildenafil (not taking per home med list) Will reach out to provider regarding patients Adderall once patient is postop and able to take PO meds Current Meds Current Medication Order Review: Intervened Comments: Added IV admission order set Pharmacy Antibiotic Review Relevant Labs: Relevant Labs 04/10/24 13:55 C-Reactive Protein 3.84 H WBC 10.62 10^3/uL (4.4-10.8) 04/11/24 06:14 Temperature 36.5 C Temperature 36.5 C Temperature 36.5 C Temperature 36.5 C Pharmacy Antibiotic Activity: C/S review and Reviewed, no change Comments: Patient is on cefepime and vancomycin, day 1, for cellulitis. Vancomycin level this morning at 0614 was 21.7. Based on this level, continue dose of 750mg q12h with predicted AUC of 534 and trough of 17.7. Repeat level is any significant change in renal function. Blood and wound cultures pending. WBC decreased from 13.61. Debridement procedure scheduled for today. Comments Comments/Follow Ups: Follow up regarding DVT prophylaxis once postop. Adderall home med missing
--- NOTE | 2024-04-11 13:55 | W.ANESPOSTOP ---
Postoperative Evaluation Date, Time and Location Date Performed: 04/11/24 Time Performed: 13:08 Patient Location: PACU Vital Signs Most Recent Imported Vital Signs: Most Recent Vital Signs Temp Pulse Resp BP Pulse Ox 36.6 C 64 11 L 132/70 97 04/11/24 13:51 04/11/24 13:51 04/11/24 13:51 04/11/24 13:51 04/11/24 13:51 Pain Score Most Recent Pain Score: Most Recent Pain Score Pain Level 3 04/11/24 13:51 Assessment Mental Status: Awake (Alert & Oriented to Patient Baseline) Airway and Respiratory Function: Patent airway with normal (patient baseline) respiratory exam Cardiovascular Function: Hemodynamically Stable Hydration Status: Adequately Hydrated Nausea & Vomiting: No Nausea or Vomiting Pain: Pain is tolerable per patient Peripheral Nerve Block: Patient did not receive a nerve block
--- NOTE | 2024-04-11 17:40 | IN_ITS ---
PT Notes Visit Reasons: Cellulitis Physical Therapy Inpatient Initial Evaluation Date: 04/11/2024 Referring Doctor: Wendy Trevino MD PT Orders: PT CONSULT: Patient is NWB on R foot post op Precautions: Fall. Standard. Per Dr. Trevino, strictly NWB on the R LE with AD. Patient Profile/Admitting Diagnosis: Amada is a 68-year-old male admitted for management of cellulitis and abscess of right foot status post irrigation and debridement of necrotic tissue on postoperative day 1, COPD, and tobacco dependence. PMHX: All Active Problems (Updated 04/10/24 @ 16:08 by Renee Muller MD) Cellulitis and abscess of foot (Acute) Cellulitis (Acute) Contusion of right foot (Acute) Hematoma of right foot (Acute) Abscess of right foot (Acute) Necrosis (Acute) Foot pain, right (Acute) Right foot infection (Acute) Acute foot pain (Acute) Hyperplastic colon polyp (Acute ~08/25/23) Abdominal pain (Acute) Chest pain (Acute) Dyspnea (Acute) Dyspepsia (Acute) Nicotine dependence, cigarettes, uncomplicated (Acute) Decreased use, 03/2024, ik Blunt chest trauma (Acute) Painful respiration (Acute) Travis angioma (Acute) Seborrheic keratoses (Acute) Depressive disorder (Chronic 06/26/13) Major depressive disorder, single episode, moderate (Chronic) Depression (Chronic 10/11/17) Colorectal polyps (Acute) Anxiety (Acute 03/23/18) Chronic obstructive lung disease (Acute 06/26/13) PFT 2010: FEV1/FVC 3.61/5.13, 70% predicted Gastroesophageal reflux disease (Acute 06/26/13) Male erectile disorder (Acute 06/26/13) Osteoarthritis of knee (Acute 06/26/13) S/P (L) TKR SOB (shortness of breath) (Acute 01/09/18) Tobacco dependence (Acute 06/26/13) Elevated cholesterol (Chronic) Colonoscopy refused (Chronic) Cough (Acute) Post-traumatic stress disorder (Acute) Loss of height (Acute) SANCHEZ (dyspnea on exertion) (Acute) Weight loss (Acute) ADD (attention deficit disorder) (Acute) Surgical History History of colonoscopy (~07/2023) path sent Hx of total knee arthroplasty Left EGD - MAC (02/2023) EGD 02/03/2018 CT/head/brain w/wo contrast (01/25/18) done at [facility] 01/25/18. report in scanning Social History/Home Situation: Lives alone with two dogs. Has family and friends who are able to help as needed. Indepednent with all aspects of ADLs prior to admission. Equipment Owned/DME: FWW Subjective: Tired but agreeable to working with PT and trialling use of front-wheeled walker. Objective: General Observation: Bulky dressing on R foot Mental Status: Alert and oriented as to person, place, time, and purpose. Able to pay attention, focus, and respond appropriately. Pain:3-4/10 in the R foot and ankle Vital Signs: Closely monitored by nursing staff ROM: Right Lower Extremity: Hip flexion WFL. Hip abduction WFL. Knee flexion WFL. Ankle dorsiflexion to neutral only limited due to dressing. Ankle plantarflexion 10 degrees limited due to dressing. Strength: Right Lower Extremity: Ankle dorsiflexors 3-/5. Ankle plantarflexors 3-/5. Bed Mobility/Transfers: Supine to sit supervision Sit to supine supervision Sit to stand stand by assist with FWW Stand to sit stand by assist with FWW Bed to bedside commode stand by assist with FWW Bedside commode to bed stand by assist with FWW Bed to reclining chair stand by assist with FWW Reclining chair to bed stand by assist with FWW Gait: Able to cover up to 60 feet inside room using FWW with NWB on the R LE. Minimal cues given for walker management, weight distribution, and posture. Balance: Static Sitting: Normal Dynamic Sitting: Normal Static Standing: Fair Dynamic Standing: Fair Special Tests: Mobility Limitations Standardized Measure [facility] AM-PAC 6 clicks Basic Mobility Inpatient Short Form: Raw Score: 23 CMS Score: 11% deficit Informed Consent/Education: Patient was instructed in purpose of PT consult and plan of care. Agreeable to proceed with established PT POC to achieve personal goals. Assessment: Per Dr. Trevino, strictly NWB on the R LE due to post op status. Patient presents with clinical signs and symptoms consistent with current/admitting diagnoses that have resulted to mobility limitations, gait instability, generalized weakness, and overall ADL decline as demonstrated by the following impairment level findings: 1. Decreased strength to R ankle major muscle groups 2. Impaired sitting/standing balance 3. Impaired activity tolerance 4. Limitation of joint range of motion in R ankle 5. Pain in R ankle and foot Impairments are contributing to the following functional limitations: 1. Decline in bed mobility skills 2. Decline in transfer skills 3. Difficulty with ambulation without assistive device 4. Increased completion time for mobility ADL performance 5. Increased risk for falls and further skin breakdown 6. Difficulty with managing steps alone safely Patient is assessed as a [id number] moderate complexity based on the following: History: 68-year-old female with past medical history as indicated above Examination: Demonstrable impairment in strength, balance, and mobility level with underlying impairments and functional limitations as exhibited above as well as deficit score of 11% utilizing the [facility] Mobility Inpatient Short Form Presentation: Evolving Decision Makin moderate complexity Goals: Goals X1 week 1. Supine-Sit independent 2. Sit-Supine independent 3. Sit-Stand independent 4. Stand-Sit independent with FWW 5. Bed-Chair independent with FWW 6. Chair-Bed independent with FWW 7. Independent gait on level surface with use of FWW for at least 200 feet without report of pain nor dyspnea 8. Independent stair negotiation while holding onto B rails for at least 2 steps without report of pain nor dyspnea 9. Independent with home exercise program 10. Good static and dynamic standing balance/tolerance Plan of Care/Treatment Plan: 1-2x/day, 7 days/week x 1 week. Plan of care has been reviewed with the TIRE SERVICE SUPERVISOR providing the service under Physical Therapy direction. Initiate Physical Therapy intervention for pain management as needed, strengthening, bed mobility, transfers, gait, stairs, balance training, and use of assistive device. DISCHARGE RECOMMENDATIONS: [] Home with no services [] [X] Home with services. Patient will benefit from home health PT services in order to progress mobility level using least restrictive assistive ambulatory device, assess home safety, identify additional equipment needs, and establish a functional maintenance program that will increase ability of patient to remain at home. [] Home with outpatient PT [] [] SNF for continued rehabilitation [] [] Snf Care [] [] SNF versus LTC based on ability to participate and progress [] TREATMENT CODE/TIME: 48889 x 26 minutes for 1 unit (17:40-18:06). Thank you for the opportunity to participate in the care of this patient. Candida Mahajan PT, DPT, CLT [facility] [place], [place]
[2024-04-11] MEDS: Atorvastatin 40 MG TAB 80 MG PO (20:14)
[2024-04-11] MEDS: Pantoprazole 40 MG TABCR PO (20:15)
[2024-04-12] MEDS: CEFEPIME 2 GM in Normal Saline 100 ML IVPB ×3 (00:18→16:47)
[2024-04-12] MEDS: Lactated Ringers 1,000 ML 80 ML IV (00:19)
[2024-04-12 00:25] VITALS: BP 96/60; PULSE 69; RESP 15; TEMP 36.7; O2SAT 96
[2024-04-12] MEDS: VANCOMYCIN/WATER (PEG) 750 MG/150 ML BAG 150 MG IVPB (04:33)
[2024-04-12] MEDS: Acetaminophen 500 MG TAB 1000 MG PO (04:41)
[2024-04-12 06:44] LABS: Abs Immature Grans 0.03 10^3/uL (0.0-0.06); Absolute Basophil Count 0.02 10^3/uL (0.0-0.2); Absolute Lymphocyte Count 1.38 10^3/uL (1.2-3.4); Absolute Monocyte Count 0.62 10^3/uL (0.1-0.8); Absolute Neutrophil Count 4.71 10^3/uL (1.2-6.7); Basophils % 0.3 %; Eosinophils % 4.2 %; HCT 30.8 % (40.0-50.0); HGB 10.2 g/dL (13.5-17.5); Immature Grans % 0.4 %; Lymphocytes % 19.5 %; MCH 31.9 pg (27.0-33.0); MCHC 33.1 % (32.0-36.0); MCV 96 fL (80-95); MPV 10.8 fL (8.0-11.0); Monocytes % 8.8 %; Neutrophils % 66.8 %; Platelet Count 163 10^3/uL (130-400); RDW 12.4 % (11.8-14.1); RDW-SD 43.9 fL; WBC 7.06 10^3/uL (4.4-10.8)
[2024-04-12 07:20] LABS: Anion Gap 9.1 mmol/L (3-11); BUN 17 mg/dL (7-18); C-Reactive Protein 3.99 mg/dL (<or=0.5); CO2 25.9 mmol/L (21.0-32.0); CREATININE 1.1 mg/dL (0.70-1.30); Chloride 106 mmol/L (98-107); Estimated GFR 72.22 (mL/min/1.73m2); Glucose 86 mg/dL (74-106); Magnesium 1.6 mg/dL (1.8-2.4); Potassium 4.5 mmol/L (3.5-5.1); Sodium 141 mmol/L (136-145)
[2024-04-12] MEDS: Pantoprazole 40 MG TABCR PO ×2 (07:47→19:54)
[2024-04-12] MEDS: Normal Saline Flush 10 ML SYR IVP ×2 (07:49→19:53)
[2024-04-12] MEDS: Budesonide/Formoterol 80/4.5 6.9 GM 60 PUFF INH IH ×2 (07:51→19:42)
[2024-04-12] MEDS: Tiotropium Bromide-Respimat 10 PUFF INH 2 PUFF IH (07:51)
[2024-04-12 08:03] VITALS: BP 115/70; PULSE 66; RESP 15; TEMP 37; O2SAT 96
--- NOTE | 2024-04-12 09:59 | CMPROGNOTE_ITS ---
Date of service: 04/12/24 Time of Service: 10:00 Care Management Progress Note Progress Note Text Progress Note Text: Robby was sitting up in a chair with his legs elevated when CM met with him. He expressed frustration about not knowing what his plan of care was. He was not sure exactly what had been done in surgery and what his recovery period would look like. CM reviewed the operative report with him and Dr. Trevino's plan to leave the wound open and to continue IV antibiotics for the next few days. Her note indicated that she planned to do a delayed closure of the wound on Tuesday. Robby had informed CM yesterday that he needed to be discharged today as he has a remote home and 2 dogs with no one to care for them. After CM shared the plan to have him remain in the hospital for several days, he started calling friends and relatives to help with the care of the dogs. He stated that he would stay in the hospital to continue treatment for his infection.Robby explained that he used to use drugs and alcohol and has been successful in stopping both, but he continues to smoke cigarettes. He indicated that is the one thing he can nor seem to stop and it is making him a bit edgy. CM asked about nicotine replacement but Robby stated that he would prefer not to us the nicotine patch. Discharge Potential Discharge Needs: PCP F/U Appt Anticipated Barriers to Discharge: None Identified Patient/Family Education Needs: Review discharge instructions, discuss Ask Me Three Transportation: Private vehicle Plan: Robby will likely be discharged home, possibly with new home health services for wound care, when medically stable. He will follow up with his community providers and plan of care. Robby has his vehicle at [facility] and plans to drive himself home. Since his wound is on his right foot, that may not be the best option. SDOH(Care Management) Screening Will the Patient Participate in the Screening?: Yes Do you worry about having a steady place to live?: no Problems where you live: no known problems In the past 12 months, have you had to go without electric, gas, oil or water in your home?: no Have you or anyone in your house had to go without enough food to eat?: no Has lack of transportation kept you from medical appointments or from doing things needed for daily living?: no Has anyone in your support network made you feel unsafe for any reason?: no
--- NOTE | 2024-04-12 10:22 | W.PM.PROGNOT ---
Date of Service Date of service: 04/12/24 Time of Service: 10:22 Assessment and Plan Assessment and plan (1) Cellulitis and abscess of foot: Status: Acute Assessment and plan: MRI showing abscess no osteomyelitis Podiatry consult: OR on 04/11 for I&D-debridement completed Patient to return to the OR for delayed primary closure on Tuesday Specimen from surgery showed MRSA Continue vancomycin and stop cefepime No growth in blood culture Labs in AM (2) Chronic obstructive lung disease: Status: Acute Assessment and plan: No symptoms of acute exacerbation On home inhalers Qualifiers: COPD type: emphysema Emphysema type: centrilobular Qualified Code(s): J43.2 - Centrilobular emphysema (3) Tobacco dependence: Status: Acute Assessment and plan: Nicotine replacement ordered (4) Hypomagnesemia: Status: Acute Assessment and plan: Mg 1.6 , supplementation ordered Mg level in AM (5) Insomnia: Status: Acute Assessment and plan: Melatonin at HS Low dose PRN lorazepam if above not effective (6) Discharge planning issues: Status: Acute Assessment and plan: Patient had mentioned the desire to leave today earlier but decided to stay s/p discussion with care management As per discussion with Dr. Trevino fisher trawl line, wound closure is planned and inpatient treatment with IV antibiotic is a must until then but if patient was to leave AMA, doxycycline would be an option Patient agrees with inpatient plan of care when discussed Discussed with Dr. Sagastume Subjective Subjective Patient reports: no new complaints, feels better, still having pain, tolerating liquids well, tolerating a regular diet, voiding w/o difficulty, flatus and afebrile; denies diarrhea, nausea, vomiting or shortness of breath Exam Narrative Exam Narrative: Constitutional The patient is sitting in chair c/o pain 5/10 as dressing was completed without prior pain medicine administered- to be given shortly HENMT: Facial structures with normal appearance Neuro:alert and oriented X4 Resp: Clear lung bilaterally Cardio: regular rhythm, S1, S2, no murmur, capillary refill<3 sec. to all ext. GI: Abdomen is not distended, soft and non tender, bowel sounds are present : Negative Costovertebral angle tenderness Back/spine/Pelvis: No back tenderness, normal alignment Integumentary: Dressing to RLE CDI Psych: RASS 0, congruent mood and normal affect. Objective Last Vital Signs Temp 37 C 04/12/24 08:03 Pulse 66 04/12/24 08:03 Resp 15 04/12/24 08:03 BP 115/70 04/12/24 08:03 Pulse Ox 96 04/12/24 08:03 Laboratory Results - last 24 hr 04/12/24 06:03 WBC 7.06 RBC 3.20 L Hgb 10.2 L Hct 30.8 L MCV 96 H MCH 31.9 MCHC 33.1 RDW 12.4 Plt Count 163 MPV 10.8 Immature Gran % 0.4 Neutrophils % 66.8 Lymphocytes % 19.5 Monocytes % 8.8 Eosinophils % 4.2 Basophils % 0.3 Nucleated RBC % 0.0 Absolute Neutrophils 4.71 Absolute Lymphocytes 1.38 Absolute Monocytes 0.62 Absolute Eosinophils 0.30 Absolute Basophils 0.02 Sodium 141 Potassium 4.5 Chloride 106 Carbon Dioxide 25.9 Anion Gap 9.1 BUN 17 Creatinine 1.1 Est GFR (CKD-EPI 2020) 72.22 Glucose 86 Calcium 9.0 Magnesium 1.6 L C-Reactive Protein 3.99 H Time Spent with Patient Time Spent with Patient: >50 minutes Time was spent: preparing to see the patient(eg.review tests), obtaining and/or reviewing separately otained hiistory, ordering medications,tests, procedures, referring, communicating with other health assurance services manager health care, indepentently interpreting results, counseling the patient and care coordination
[2024-04-12] MEDS: MAGNESIUM SULFATE 2 GM/50 ML BAG IVINF (11:05)
--- NOTE | 2024-04-12 11:29 | NUR.NOTE ---
Nursing Note: Verified wound care orders with Dr. Trevino: Wendy Trevino 04/12/2024 11:28 AM ? Dakins soaked packing gauze, 4x4, kerlix JULIAN wrap. Thank you!
--- NOTE | 2024-04-12 11:34 | PT.INTREAT ---
PT Notes Visit Reasons: Cellulitis Physical Therapy Inpatient Treatment Note Date: 04/12/2024 Precautions: Fall. Standard. Per Dr. Trevino, strictly NWB on the R LE with AD. Subjective: Agreeable to trying out some more walking and exercises today. Complained of increased pain in the R foot after exercises. Objective: General Observation: Bulky dressing on R foot Mental Status: Alert and oriented as to person, place, time, and purpose. Able to pay attention, focus, and respond appropriately. Pain: 5/10 in the R foot and ankle in the AM, 2-3/10 in the PM Vital Signs: Closely monitored by nursing staff Bed Mobility/Transfers: Supine to sit supervision Sit to supine supervision Sit to stand supervision with FWW Stand to sit supervision with FWW Bed to reclining chair supervision with FWW Reclining chair to bed supervision with FWW Gait: Able to cover up to 80 feet inside room using FWW with NWB on the R LE. Minimal cues given for walker management, weight distribution, and posture. Trialled bilateral axillary crutches in the afternoon but patient prefers the FWW for ow as it has given him better stability and is less fatiguing to use. Balance: Static Sitting: Normal Dynamic Sitting: Normal Static Standing: Fair Dynamic Standing: Fair THERA EX: Guided patient with correct performance of seated level exercises x 15 reps B LAQs Seated slide outs Aankle pumps Seated marches Chair push ups Assessment: Per Dr. Trevino, strictly NWB on the R LE due to post op status. Patient presents with clinical signs and symptoms consistent with current/admitting diagnoses that have resulted to mobility limitations, gait instability, generalized weakness, and overall ADL decline as demonstrated by the following impairment level findings: Plan of Care/Treatment Plan: 1-2x/day, 7 days/week x 1 week. Plan of care has been reviewed with the JOINT CLEANING MACHINE OPERATOR providing the service under Physical Therapy direction. Initiate Physical Therapy intervention for pain management as needed, strengthening, bed mobility, transfers, gait, stairs, balance training, and use of assistive device. DISCHARGE RECOMMENDATIONS: [] Home with no services [] [X] Home with services. Patient will benefit from home health PT services in order to progress mobility level using least restrictive assistive ambulatory device, assess home safety, identify additional equipment needs, and establish a functional maintenance program that will increase ability of patient to remain at home. [] Home with outpatient PT [] [] SNF for continued rehabilitation [] [] [facility] [] [] SNF versus LTC based on ability to participate and progress [] TREATMENT CODE/TIME: Session 1-- 95964 x 19 minutes (11:34-11:53). Session 2--81078 x 18 minutes (16:09-16:27).
[2024-04-12 15:39] VITALS: BP 121/75; PULSE 70; RESP 16; TEMP 36.6; O2SAT 96
--- NOTE | 2024-04-12 17:12 | CHAPLAIN ---
Robby was up in the recliner when I visited. He was quiet but responded to questions. He said he's not used to be in the hospital and it is uncomfortable for him. He's spend some time talking to the man upstairs. Robby said he hasn't seen the sales planning analyst again yet, so he is not sure what the plan is for his care. This frustrated him, he said, but he acknowledged that he knows she has patients to see in her office. I will continue to visit.
[2024-04-12] MEDS: VANCOMYCIN/WATER (PEG) 1 GM/200 ML BAG IVPB (18:20)
[2024-04-12 19:34] VITALS: BP 111/55; PULSE 61; RESP 16; TEMP 36.3; O2SAT 97
[2024-04-12] MEDS: Atorvastatin 40 MG TAB 80 MG PO (19:54)
[2024-04-13] MEDS: Acetaminophen 500 MG TAB 1000 MG PO (00:37)
[2024-04-13 03:13] VITALS: BP 113/65; PULSE 63; RESP 16; TEMP 36.4; O2SAT 95
[2024-04-13] MEDS: VANCOMYCIN/WATER (PEG) 1 GM/200 ML BAG IVPB ×2 (06:02→17:55)
[2024-04-13 06:55] LABS: Abs Immature Grans 0.03 10^3/uL (0.0-0.06); Absolute Basophil Count 0.02 10^3/uL (0.0-0.2); Absolute Eosinophil Count 0.26 10^3/uL (0.0-0.7); Absolute Monocyte Count 0.47 10^3/uL (0.1-0.8); Absolute Neutrophil Count 3.31 10^3/uL (1.2-6.7); Basophils % 0.4 %; Eosinophils % 4.7 %; HCT 31.2 % (40.0-50.0); HGB 10.4 g/dL (13.5-17.5); Immature Grans % 0.5 %; Lymphocytes % 25.5 %; MCH 31.9 pg (27.0-33.0); MCHC 33.3 % (32.0-36.0); MCV 96 fL (80-95); MPV 10.4 fL (8.0-11.0); Monocytes % 8.6 %; Neutrophils % 60.3 %; Platelet Count 171 10^3/uL (130-400); RBC 3.26 10^6/uL (4.36-5.78); RDW 12.2 % (11.8-14.1); RDW-SD 42.7 fL; WBC 5.49 10^3/uL (4.4-10.8)
[2024-04-13 07:16] LABS: BUN 14 mg/dL (7-18); CREATININE 1.1 mg/dL (0.70-1.30); Calcium 9.2 mg/dL (8.5-10.1); Chloride 103 mmol/L (98-107); Estimated GFR 72.22 (mL/min/1.73m2); Glucose 94 mg/dL (74-106); Potassium 4.2 mmol/L (3.5-5.1); Sodium 140 mmol/L (136-145)
[2024-04-13 07:17] LABS: Magnesium 1.8 mg/dL (1.8-2.4)
[2024-04-13] MEDS: Normal Saline Flush 10 ML SYR IVP ×3 (07:38→19:59)
[2024-04-13] MEDS: Pantoprazole 40 MG TABCR PO ×2 (07:38→20:00)
[2024-04-13] MEDS: Docusate Sodium 100 MG/10 ML CUP PO (07:38)
[2024-04-13 07:42] VITALS: BP 128/70; PULSE 60; RESP 16; TEMP 36.4; O2SAT 96
[2024-04-13] MEDS: Budesonide/Formoterol 80/4.5 6.9 GM 60 PUFF INH IH ×2 (07:51→21:03)
[2024-04-13] MEDS: Tiotropium Bromide-Respimat 10 PUFF INH 2 PUFF IH (07:52)
--- NOTE | 2024-04-13 09:01 | PGE_ITS ---
Date of Service Date of service: 04/13/24 Time of Service: 09:01 Assessment and Plan Assessment and plan (1) Cellulitis and abscess of foot: Status: Acute Assessment and plan: MRI showing abscess no osteomyelitis Podiatry consult:OR on 04/11 -Delayed primary closure on Tuesday Specimen from surgery showed MRSA sensitive to vancomycin Continue vancomycin No growth in blood culture X 48 hours Labs in AM (2) Chronic obstructive lung disease: Status: Acute Assessment and plan: Continue home inhalers Qualifiers: COPD type: emphysema Emphysema type: centrilobular Qualified Code(s): J43.2 - Centrilobular emphysema (3) Tobacco dependence: Status: Acute Assessment and plan: Nicotine RT ordered (4) Hypomagnesemia: Status: Acute Assessment and plan: Mg 1.8 resolved (5) Insomnia: Status: Acute Assessment and plan: Melatonin at HS, patient mentioned not receiving it last night Low dose PRN lorazepam if above not effective (6) Discharge planning issues: Status: Acute Assessment and plan: Patient had mentioned previous desire to leave AMA; this has resolved Delayed closure of wound planned prior to consider discharge Discussed with Dr. Sagastume Subjective Subjective Patient reports: no new complaints, feels better, still having pain, tolerating liquids well, tolerating a regular diet, voiding w/o difficulty, no bowel movement and afebrile; denies diarrhea, nausea or vomiting Exam Narrative Exam Narrative: Constitutional The patient is sitting in chair c/o pain w dressing change not releived by current pain management regimen Neuro:alert and oriented X4 Resp: Clear lung bilaterally Cardio: regular rhythm, S1, S2, no murmur, cap refill< 3 sec to RLE GI: Abdomen is not distended, soft and non tender, bowel sounds are present Integumentary: Dressing to RLE CDI Psych: RASS 0, congruent mood and normal affect. Objective Last Vital Signs Temp 36.4 C L 04/13/24 07:42 Pulse 60 04/13/24 07:42 Resp 16 04/13/24 07:42 BP 128/70 04/13/24 07:42 Pulse Ox 96 04/13/24 07:42 Laboratory Results - last 24 hr 04/12/24 04/13/24 13:55 06:36 WBC 5.49 RBC 3.26 L Hgb 10.4 L Hct 31.2 L MCV 96 H MCH 31.9 MCHC 33.3 RDW 12.2 Plt Count 171 MPV 10.4 Immature Gran % 0.5 Neutrophils % 60.3 Lymphocytes % 25.5 Monocytes % 8.6 Eosinophils % 4.7 Basophils % 0.4 Nucleated RBC % 0.0 Absolute Neutrophils 3.31 Absolute Lymphocytes 1.40 Absolute Monocytes 0.47 Absolute Eosinophils 0.26 Absolute Basophils 0.02 Sodium 140 Potassium 4.2 Chloride 103 Carbon Dioxide 30.0 Anion Gap 7.0 BUN 14 Creatinine 1.1 Est GFR (CKD-EPI 2020) 72.22 Glucose 94 Calcium 9.2 Magnesium 1.8 Random Vancomycin 12.0 Time Spent with Patient Time Spent with Patient: >50 minutes Time was spent: preparing to see the patient(eg.review tests), obtaining and/or reviewing separately otained hiistory, ordering medications,tests, procedures, referring, communicating with other health pharmacy care coordinator, indepentently interpreting results, counseling the patient and care coordination
--- NOTE | 2024-04-13 09:35 | PDOC.CMPRO ---
Date of service: 04/13/24 Time of Service: 09:35 Care Management Progress Note Progress Note Text Progress Note Text: Robby was sitting up in a chair when CM met with him. He stated that he is feeling well and does not really have any pain. Robby's biggest issue right now is that he smokes cigarettes and is unable to in the hospital. He has had some cravings which have been challenging. Robby requested some snacks to ease the cravings which were provided. Robby has agreed to remain at [facility] until Tuesday when he will possibly go to surgery for delayed closure of his wound. Discharge Potential Discharge Needs: PCP F/U Appt and Surgical F/U Appt Anticipated Barriers to Discharge: Medical Status Patient/Family Education Needs: Review discharge instructions, discuss Ask Me Three Transportation: Private vehicle Plan: Robby will likely be discharged home, possibly with new home health services for wound care, when medically stable. He will follow up with his community providers and plan of care. Robby has his vehicle at [facility] and plans to drive himself home. Since his wound is on his right foot, that may not be the best option. SDOH(Care Management) Screening Will the Patient Participate in the Screening?: Yes Do you worry about having a steady place to live?: no Problems where you live: no known problems In the past 12 months, have you had to go without electric, gas, oil or water in your home?: no Have you or anyone in your house had to go without enough food to eat?: no Has lack of transportation kept you from medical appointments or from doing things needed for daily living?: no Has anyone in your support network made you feel unsafe for any reason?: no
[2024-04-13] MEDS: oxyCODONE 5 MG TAB 10 MG PO (10:23)
--- NOTE | 2024-04-13 10:25 | INDS_ITS ---
PT Notes Visit Reasons: Cellulitis Physical Therapy Inpatient Discharge Summary Date: 04/13/2024 Referring Doctor: Wendy Trevino MD PT Orders: PT CONSULT: Patient is NWB on R foot post op Precautions: Fall. Standard. Per Dr. Trevino, strictly NWB on the R LE with AD. Subjective: Has been compliant with weight bearing precautions. Knows his exercises and has been careful with doing them. Agreeable with plan to discontinue with PT for now as he has been doing well using his walker, has one at home. Feels more secure with using walker than crutches. Objective: General Observation: R foot dressing in place Mental Status: Alert and oriented as to person, place, time, and purpose. Able to pay attention, focus, and respond appropriately. Pain:3/10 in the R foot and ankle Vital Signs: Closely monitored by nursing staff ROM: Right Lower Extremity: Hip flexion WFL. Hip abduction WFL. Knee flexion WFL. Ankle dorsiflexion to neutral only limited due to dressing. Ankle plantarflexion 10 degrees limited due to dressing. Strength: Right Lower Extremity: Ankle dorsiflexors 3-/5. Ankle plantarflexors 3-/5. Bed Mobility/Transfers: Supine to sit independent Sit to supine independent Sit to stand independent with FWW Stand to sit independent with FWW Bed to bedside commode independent with FWW Bedside commode to bed independent with FWW Bed to reclining chair independent with FWW Reclining chair to bed independent with FWW Gait: Able to cover up to 150 feet iof back and forth walking nside room using FWW with NWB on the R LE independently. Balance: Static Sitting: Normal Dynamic Sitting: Normal Static Standing: Fair Dynamic Standing: Fair Special Tests: Mobility Limitations Standardized Measure [facility] AM-PAC 6 clicks Basic Mobility Inpatient Short Form: Raw Score: 24 CMS Score: 0% deficit Assessment: Now modified independent with use of FWW with NWB on the R LE. Has copies of his room exercises which he regularly does. Goals: Goals X1 week 1. Supine-Sit independent MET 2. Sit-Supine independent MET 3. Sit-Stand independent MET 4. Stand-Sit independent with FWW MET 5. Bed-Chair independent with FWW MET 6. Chair-Bed independent with FWW MET 7. Independent gait on level surface with use of FWW for at least 200 feet w ithout report of pain nor dyspnea MET 8. Independent stair negotiation while holding onto B rails for at least 2 steps without report of pain nor dyspnea MET 9. Independent with home exercise program MET 10. Good static and dynamic standing balance/tolerance MET Plan of Care/Treatment Plan: D/C from PT at highest functional level. May continue with PT once WB status is upgraded. DISCHARGE RECOMMENDATIONS: [] Home with no services [] [X] Home with services. Patient will benefit from home health PT services in order to progress mobility level using least restrictive assistive ambulatory device, assess home safety, identify additional equipment needs, and establish a functional maintenance program that will increase ability of patient to remain at home. [] Home with outpatient PT [] [] SNF for continued rehabilitation [] [] [facility] [] [] SNF versus LTC based on ability to participate and progress [] TREATMENT CODE/TIME: 93102 x 15 minutes for 1 unit (10:25-10:40). Thank you for the opportunity to participate in the care of this patient. Candida Mahajan PT, DPT, CLT [facility] [place], [place]
[2024-04-13] MEDS: Ketorolac 15 MG/ML VIAL IVP (10:55)
[2024-04-13 12:54] LABS: Vancomycin, Random 20.3 ug/mL
[2024-04-13 16:06] VITALS: BP 96/62; PULSE 67; RESP 18; TEMP 36.4; O2SAT 97
[2024-04-13 19:15] VITALS: BP 103/60
[2024-04-13 19:50] VITALS: BP 102/61; PULSE 72; RESP 18; TEMP 36.8; O2SAT 96
[2024-04-13] MEDS: Docusate Sodium 100 MG CAP PO (20:00)
[2024-04-13] MEDS: Melatonin 3 MG TAB PO (20:00)
[2024-04-13] MEDS: Atorvastatin 40 MG TAB 80 MG PO (20:01)
[2024-04-14] MEDS: LORazepam 0.5 MG TAB PO (00:17)
[2024-04-14] MEDS: VANCOMYCIN/WATER (PEG) 1 GM/200 ML BAG IVPB ×2 (06:14→17:46)
[2024-04-14] MEDS: Normal Saline Flush 10 ML SYR IVP ×3 (06:14→21:19)
[2024-04-14 07:01] LABS: Abs Immature Grans 0.09 10^3/uL (0.0-0.06); Absolute Basophil Count 0.03 10^3/uL (0.0-0.2); Absolute Eosinophil Count 0.36 10^3/uL (0.0-0.7); Absolute Lymphocyte Count 1.55 10^3/uL (1.2-3.4); Absolute Monocyte Count 0.55 10^3/uL (0.1-0.8); Absolute Neutrophil Count 3.13 10^3/uL (1.2-6.7); Basophils % 0.5 %; Eosinophils % 6.3 %; HCT 32.9 % (40.0-50.0); HGB 11.1 g/dL (13.5-17.5); Immature Grans % 1.6 %; Lymphocytes % 27.1 %; MCH 32.2 pg (27.0-33.0); MCHC 33.7 % (32.0-36.0); MCV 95 fL (80-95); MPV 10.1 fL (8.0-11.0); Monocytes % 9.6 %; Neutrophils % 54.9 %; Platelet Count 192 10^3/uL (130-400); RBC 3.45 10^6/uL (4.36-5.78); RDW 12.2 % (11.8-14.1); RDW-SD 42.8 fL; WBC 5.71 10^3/uL (4.4-10.8)
[2024-04-14 07:16] LABS: Anion Gap 7.1 mmol/L (3-11); BUN 18 mg/dL (7-18); CO2 27.9 mmol/L (21.0-32.0); Calcium 8.9 mg/dL (8.5-10.1); Chloride 105 mmol/L (98-107); Estimated GFR 80.97 (mL/min/1.73m2); Glucose 89 mg/dL (74-106); Potassium 4.3 mmol/L (3.5-5.1); Sodium 140 mmol/L (136-145)
[2024-04-14] MEDS: Pantoprazole 40 MG TABCR PO ×2 (07:25→20:55)
[2024-04-14] MEDS: Budesonide/Formoterol 80/4.5 6.9 GM 60 PUFF INH IH ×2 (07:59→19:47)
[2024-04-14] MEDS: Tiotropium Bromide-Respimat 10 PUFF INH 2 PUFF IH (08:00)
[2024-04-14] MEDS: Docusate Sodium 100 MG CAP PO ×3 (08:05→20:55)
[2024-04-14 08:08] VITALS: BP 120/64; PULSE 69; RESP 18; TEMP 36; O2SAT 96
--- NOTE | 2024-04-14 12:34 | PGE_ITS ---
Date of Service Date of service: 04/14/24 Time of Service: 12:34 Assessment and Plan Assessment and plan (1) Cellulitis and abscess of foot: Status: Acute Assessment and plan: No osteomyelitis as per MRI but positive for abscess Podiatry consult:OR on 04/11 and plan for delayed primary closure on Tuesday Specimen from surgery showed MRSA sensitive to vancomycin Continue vancomycin No growth in blood culture X 72 hours Labs in AM (2) Chronic obstructive lung disease: Status: Acute Assessment and plan: On home inhalers Qualifiers: COPD type: emphysema Emphysema type: centrilobular Qualified Code(s): J43.2 - Centrilobular emphysema (3) Tobacco dependence: Status: Acute Assessment and plan: Nicotine patch ordered (4) Hypomagnesemia: Status: Acute Assessment and plan: Mg 1.8 resolved on 04/13 (5) Insomnia: Status: Acute Assessment and plan: Increased dose of melatonin at HS, patient mentioned not sleeping PRN lorazepam at HS if above not effective (6) Discharge planning issues: Status: Acute Assessment and plan: Discharge home when medically ready Delayed closure of wound planned prior to consider discharge Discussed with Dr. Sagastume Subjective Subjective Patient reports: no new complaints, feels better, pain is less, tolerating liquids well, tolerating a regular diet and no bowel movement; denies nausea, vomiting, shortness of breath or fever Exam Narrative Exam Narrative: Constitutional The patient in bed c/o minimal pain but worst pain w dressing change, premedication is helping Neuro:alert and oriented X4 Resp: Clear lung bilaterally but decreased bases Cardio: regular rhythm, S1, S2, no murmur, cap refill< 3 sec to RLE, decreased swelling to distal right foot GI: Abdomen is not distended, soft and non tender, bowel sounds are present Integumentary: Dressing to RLE CDI Psych: RASS 0, congruent mood and normal affect. Objective Last Vital Signs Temp 36 C L 04/14/24 08:08 Pulse 69 04/14/24 08:08 Resp 18 04/14/24 08:08 BP 120/64 04/14/24 08:08 Pulse Ox 96 04/14/24 08:08 Laboratory Results - last 24 hr 04/13/24 04/14/24 12:10 06:51 WBC 5.71 RBC 3.45 L Hgb 11.1 L Hct 32.9 L MCV 95 MCH 32.2 MCHC 33.7 RDW 12.2 Plt Count 192 MPV 10.1 Immature Gran % 1.6 Neutrophils % 54.9 Lymphocytes % 27.1 Monocytes % 9.6 Eosinophils % 6.3 Basophils % 0.5 Nucleated RBC % 0.0 Absolute Neutrophils 3.13 Absolute Lymphocytes 1.55 Absolute Monocytes 0.55 Absolute Eosinophils 0.36 Absolute Basophils 0.03 Sodium 140 Potassium 4.3 Chloride 105 Carbon Dioxide 27.9 Anion Gap 7.1 BUN 18 Creatinine 1.0 Est GFR (CKD-EPI 2020) 80.97 Glucose 89 Calcium 8.9 Random Vancomycin 20.3 Time Spent with Patient Time Spent with Patient: >50 minutes Time was spent: preparing to see the patient(eg.review tests), obtaining and/or reviewing separately otained hiistory, ordering medications,tests, procedures, referring, communicating with other health animal care provider, indepentently interpreting results, counseling the patient and care coordination
[2024-04-14] MEDS: oxyCODONE 5 MG TAB 10 MG PO (13:42)
[2024-04-14] MEDS: Polyethylene Glycol 3350 17 GM PACKET PO (13:42)
[2024-04-14] MEDS: Ketorolac 15 MG/ML VIAL IVP (14:26)
[2024-04-14 19:33] VITALS: BP 113/71; PULSE 79; RESP 18; TEMP 36.1; O2SAT 96
[2024-04-14] MEDS: Atorvastatin 40 MG TAB 80 MG PO (20:55)
[2024-04-14] MEDS: Acetaminophen 500 MG TAB 1000 MG PO (20:55)
[2024-04-14] MEDS: Melatonin 3 MG TAB 6 MG PO (20:56)
[2024-04-15] MEDS: VANCOMYCIN/WATER (PEG) 1 GM/200 ML BAG IVPB ×2 (06:20→17:16)
[2024-04-15] MEDS: Acetaminophen 500 MG TAB 1000 MG PO (06:32)
[2024-04-15 07:15] LABS: Abs Immature Grans 0.12 10^3/uL (0.0-0.06); Absolute Basophil Count 0.04 10^3/uL (0.0-0.2); Absolute Lymphocyte Count 1.79 10^3/uL (1.2-3.4); Absolute Neutrophil Count 3.26 10^3/uL (1.2-6.7); Basophils % 0.6 %; Eosinophils % 6.4 %; HCT 33.3 % (40.0-50.0); HGB 11.3 g/dL (13.5-17.5); Immature Grans % 1.9 %; Lymphocytes % 28.8 %; MCH 32.1 pg (27.0-33.0); MCHC 33.9 % (32.0-36.0); MCV 95 fL (80-95); MPV 10.6 fL (8.0-11.0); Monocytes % 9.7 %; Neutrophils % 52.6 %; Platelet Count 234 10^3/uL (130-400); RBC 3.52 10^6/uL (4.36-5.78); RDW 12.3 % (11.8-14.1); RDW-SD 42.5 fL; WBC 6.21 10^3/uL (4.4-10.8)
[2024-04-15 07:25] LABS: Anion Gap 7.7 mmol/L (3-11); BUN 22 mg/dL (7-18); CO2 28.3 mmol/L (21.0-32.0); Chloride 105 mmol/L (98-107); Estimated GFR 80.97 (mL/min/1.73m2); Glucose 91 mg/dL (74-106); Potassium 4.3 mmol/L (3.5-5.1); Sodium 141 mmol/L (136-145)
[2024-04-15] MEDS: Tiotropium Bromide-Respimat 10 PUFF INH 2 PUFF IH (07:56)
[2024-04-15] MEDS: Budesonide/Formoterol 80/4.5 6.9 GM 60 PUFF INH IH ×2 (07:56→20:09)
[2024-04-15] MEDS: Pantoprazole 40 MG TABCR PO ×2 (08:50→20:16)
[2024-04-15] MEDS: Docusate Sodium 100 MG CAP PO ×3 (08:50→20:13)
[2024-04-15 10:08] VITALS: BP 169/74; PULSE 65; RESP 14; TEMP 36.9; O2SAT 99
--- NOTE | 2024-04-15 10:22 | W.PM.PROGNOT ---
Date of Service Date of service: 04/15/24 Time of Service: 10: Assessment and Plan Assessment and plan (1) Cellulitis and abscess of foot: Status: Acute Assessment and plan: No osteomyelitis as per MRI but positive for abscess Podiatry consult:OR on 04/11 and plan for delayed primary closure on Tuesday MRSA positive sensitive to vancomycin Continue vancomycin No growth in blood culture X 96 hours Continue pre-medication prior to dressing change is helping Labs in AM. (2) Chronic obstructive lung disease: Status: Acute Assessment and plan: On home inhalers Qualifiers: COPD type: emphysema Emphysema type: centrilobular Qualified Code(s): J43.2 - Centrilobular emphysema (3) Tobacco dependence: Status: Acute Assessment and plan: Nicotine patch ordered (4) Hypomagnesemia: Status: Acute Assessment and plan: Mg 1.8 resolved on 04/13 (5) Insomnia: Status: Acute Assessment and plan: Continue increased dose of melatonin at HS, patient mentioned sleeping better PRN lorazepam BID PRN Leave one dose for HS if above not effective (6) Discharge planning issues: Status: Acute Assessment and plan: Discharge home when medically ready Delayed closure of wound planned prior to consider discharge Will most likely f/u with podiatry as seen fit by Dr. Trevino Discussed with Dr. Sagastume Subjective Subjective Patient reports: feels better, tolerating liquids well, tolerating a regular diet, voiding w/o difficulty, bowel movement, afebrile and other ([place] irritable this AM); denies blood in stool, nausea, vomiting or shortness of breath Exam Narrative Exam Narrative: Constitutional The patient in bed c/o minimal pain thsi AM but worst pain w dressing change Neuro:alert and oriented X4 Resp: Clear lung bilaterally Cardio: regular rhythm, S1, S2, no murmur, cap refill< 3 sec to RLE, decreased swelling to distal right foot GI: Abdomen is not distended, soft and non tender, bowel sounds are present Integumentary: Dressing to RLE CDI, wound bed seen on 04/14 late PM, wound bed w granulating tissue, no pus -only serosanguinous drainage, no zana-wound erythema Psych: RASS 0, congruent mood and normal affect. Objective Last Vital Signs Temp 36.9 C 04/15/24 10:08 Pulse 65 04/15/24 10:08 Resp 14 04/15/24 10:08 BP 169/74 H 04/15/24 10:08 Pulse Ox 99 04/15/24 10:08 Laboratory Results - last 24 hr 04/15/24 06:13 WBC 6.21 RBC 3.52 L Hgb 11.3 L Hct 33.3 L MCV 95 MCH 32.1 MCHC 33.9 RDW 12.3 Plt Count 234 MPV 10.6 Immature Gran % 1.9 Neutrophils % 52.6 Lymphocytes % 28.8 Monocytes % 9.7 Eosinophils % 6.4 Basophils % 0.6 Nucleated RBC % 0.0 Absolute Neutrophils 3.26 Absolute Lymphocytes 1.79 Absolute Monocytes 0.60 Absolute Eosinophils 0.40 Absolute Basophils 0.04 Sodium 141 Potassium 4.3 Chloride 105 Carbon Dioxide 28.3 Anion Gap 7.7 BUN 22 H Creatinine 1.0 Est GFR (CKD-EPI 2020) 80.97 Glucose 91 Calcium 9.0 Time Spent with Patient Time Spent with Patient: >50 minutes Time was spent: preparing to see the patient(eg.review tests), obtaining and/or reviewing separately otained hiistory, ordering medications,tests, procedures, referring, communicating with other health vehicle care specialist, indepentently interpreting results, counseling the patient and care coordination
[2024-04-15] MEDS: oxyCODONE 5 MG TAB 10 MG PO (10:55)
[2024-04-15] MEDS: Ketorolac 15 MG/ML VIAL IVP (11:48)
[2024-04-15] MEDS: Normal Saline Flush 10 ML SYR IVP ×2 (14:50→20:14)
[2024-04-15 20:02] VITALS: BP 105/62; PULSE 70; RESP 18; TEMP 36.6; O2SAT 97
[2024-04-15] MEDS: Atorvastatin 40 MG TAB 80 MG PO (20:13)
[2024-04-15] MEDS: LORazepam 1 MG TAB PO (20:13)
[2024-04-15] MEDS: Melatonin 3 MG TAB 9 MG PO (20:16)
[2024-04-16] MEDS: VANCOMYCIN/WATER (PEG) 1 GM/200 ML BAG IVPB ×2 (06:14→18:04)
[2024-04-16 07:22] LABS: Absolute Basophil Count 0.05 10^3/uL (0.0-0.2); Absolute Eosinophil Count 0.47 10^3/uL (0.0-0.7); Absolute Lymphocyte Count 1.84 10^3/uL (1.2-3.4); Absolute Monocyte Count 0.68 10^3/uL (0.1-0.8); Absolute Neutrophil Count 4.07 10^3/uL (1.2-6.7); Basophils % 0.7 %; Eosinophils % 6.4 %; HCT 33.6 % (40.0-50.0); HGB 11.1 g/dL (13.5-17.5); Immature Grans % 2.7 %; Lymphocytes % 25.2 %; MCH 31.5 pg (27.0-33.0); MCV 96 fL (80-95); MPV 10.1 fL (8.0-11.0); Monocytes % 9.3 %; Neutrophils % 55.7 %; Platelet Count 226 10^3/uL (130-400); RBC 3.52 10^6/uL (4.36-5.78); RDW 12.1 % (11.8-14.1); RDW-SD 42.1 fL; WBC 7.31 10^3/uL (4.4-10.8)
[2024-04-16] MEDS: Budesonide/Formoterol 80/4.5 6.9 GM 60 PUFF INH IH ×2 (07:33→20:20)
[2024-04-16] MEDS: Tiotropium Bromide-Respimat 10 PUFF INH 2 PUFF IH (07:34)
[2024-04-16 07:41] LABS: Anion Gap 8.9 mmol/L (3-11); BUN 21 mg/dL (7-18); CO2 28.1 mmol/L (21.0-32.0); CREATININE 1.2 mg/dL (0.70-1.30); Calcium 8.9 mg/dL (8.5-10.1); Chloride 104 mmol/L (98-107); Estimated GFR 65.06 (mL/min/1.73m2); Glucose 92 mg/dL (74-106); Potassium 4.5 mmol/L (3.5-5.1); Sodium 141 mmol/L (136-145)
[2024-04-16] MEDS: Polyethylene Glycol 3350 17 GM PACKET PO (08:50)
[2024-04-16] MEDS: Pantoprazole 40 MG TABCR PO ×2 (08:53→20:58)
[2024-04-16] MEDS: Docusate Sodium 100 MG CAP PO ×2 (08:55→20:58)
--- NOTE | 2024-04-16 09:20 | PDOC.CMPRO ---
Date of service: 04/16/24 Time of Service: 09:20 Care Management Progress Note Progress Note Text Progress Note Text: Robby was sitting up in bed when CM met with him. He appeared to be in good spirits and commented on the fact that he is still here. He was half joking with CM because he almost signed out AMA last week. Dr. Trevino has been away but is back tomorrow. Before she left she documented her plan to take Robby to the OR for a delayed closure tomorrow and also shared it in conversation with Dr. Nazario. Robby will be NPO after midnight and very likely go to surgery tomorrow. He reported that he plans to be discharged home tomorrow after the procedure. Discharge Potential Discharge Needs: PCP F/U Appt and Other (may need home health for wound care) Anticipated Barriers to Discharge: None Identified Patient/Family Education Needs: Review discharge instructions, discuss Ask Me Three Transportation: Private vehicle Plan: Anticipate Robby will be discharged home with new home health services for wound care. He will follow up with his PCP and [employer] [facility] [employer] and plan of care and will drive himself home. CM will continue to support Robby and his discharge planning needs. SDOH(Care Management) Screening Will the Patient Participate in the Screening?: Yes Do you worry about having a steady place to live?: no Problems where you live: no known problems In the past 12 months, have you had to go without electric, gas, oil or water in your home?: no Have you or anyone in your house had to go without enough food to eat?: no Has lack of transportation kept you from medical appointments or from doing things needed for daily living?: no Has anyone in your support network made you feel unsafe for any reason?: no
[2024-04-16] MEDS: Normal Saline Flush 10 ML SYR IVP ×2 (10:55→20:59)
[2024-04-16] MEDS: oxyCODONE 5 MG TAB 10 MG PO (12:01)
--- NOTE | 2024-04-16 12:07 | NUR.NOTE ---
During yesterday 04/15/24 shifts this nurse dropped 1 5mg oxycodone on the floor during med pass. PT witnessed this and it was wasted at the [facility]. As this nurse was unaware of how to pull just 1 5 mg pill instead of the ordered 2 it looked like 2 5 mg pills were pulled instead of 1. Pharmacy called and updated today Nursing Note:
[2024-04-16 14:55] VITALS: BP 100/50; PULSE 65; RESP 15; TEMP 37.1; O2SAT 98
--- NOTE | 2024-04-16 16:03 | W.PM.PROGNOT ---
Date of Service Date of service: 04/16/24 Time of Service: 16:03 Assessment and Plan Assessment and plan (1) Cellulitis and abscess of foot: Status: Acute Assessment and plan: right foot, Status post OR debridement postop day 5 Continue routine postoperative care and dressing changes per podiatry Medically he has remained stable with no postoperative complications. Continue antibiotics: vancomycin blood cultures have remained negative Podiatry plan is for primary closure on Tuesday, April 17, 2024 Will be made n.p.o. after midnight (2) Chronic obstructive lung disease: Status: Acute Assessment and plan: stable continue home inhalers Qualifiers: COPD type: emphysema Emphysema type: centrilobular Qualified Code(s): J43.2 - Centrilobular emphysema (3) Tobacco dependence: Status: Acute Assessment and plan: nicotine replacement as needed (4) Insomnia: Status: Acute Assessment and plan: Continue increased dose of melatonin at HS, patient mentioned sleeping better PRN lorazepam BID PRN (5) Hypomagnesemia: Status: Resolved Assessment and plan: repleted (6) Discharge planning issues: Status: Acute Assessment and plan: Discharge home when medically ready Delayed closure of wound planned for tomorrow discussed with DR Nazario Subjective Subjective Patient reports: no new complaints, feels better, tolerating liquids well, tolerating a regular diet, voiding w/o difficulty and afebrile; denies shortness of breath Interval history since last seen: Patient denies any pain he has had no fever no chills has been eating and drinking bowels and bladder functioning. States his been ambulating with steady gait, hemodynamically has been stable Exam Narrative Exam Narrative: Thin older appearing than stated age gentleman in no acute distress skin is ashen warm dry is well-perfused facial features symmetrical eye appearance normal oral mucosas moist neck is supple full range of motion respirations are even and unlabored cardiovascular regular rate and rhythm abdomen benign he has a dressing to his right lower extremity toes visualized minimal edema no erythema proximally or distally to the Paul wrap. He has full range of motion of his toes sensations intact they are warm. Objective Last Vital Signs Temp 37.1 C 04/16/24 14:55 Pulse 65 04/16/24 14:55 Resp 15 04/16/24 14:55 BP 100/50 L 04/16/24 14:55 Pulse Ox 98 04/16/24 14:55 Laboratory Results - last 24 hr 04/16/24 06:59 WBC 7.31 RBC 3.52 L Hgb 11.1 L Hct 33.6 L MCV 96 H MCH 31.5 MCHC 33.0 RDW 12.1 Plt Count 226 MPV 10.1 Immature Gran % 2.7 Neutrophils % 55.7 Lymphocytes % 25.2 Monocytes % 9.3 Eosinophils % 6.4 Basophils % 0.7 Nucleated RBC % 0.0 Absolute Neutrophils 4.07 Absolute Lymphocytes 1.84 Absolute Monocytes 0.68 Absolute Eosinophils 0.47 Absolute Basophils 0.05 Sodium 141 Potassium 4.5 Chloride 104 Carbon Dioxide 28.1 Anion Gap 8.9 BUN 21 H Creatinine 1.2 Est GFR (CKD-EPI 2020) 65.06 Glucose 92 Calcium 8.9 Time Spent with Patient Time Spent with Patient: 35-49 minutes Time was spent: preparing to see the patient(eg.review tests), obtaining and/or reviewing separately otained hiistory, ordering medications,tests, procedures, indepentently interpreting results and counseling the patient
[2024-04-16] MEDS: Atorvastatin 40 MG TAB 80 MG PO (20:57)
[2024-04-16] MEDS: Acetaminophen 500 MG TAB 1000 MG PO (20:58)
[2024-04-16] MEDS: LORazepam 1 MG TAB PO (20:58)
[2024-04-16] MEDS: Melatonin 3 MG TAB 9 MG PO (20:58)
[2024-04-16 21:04] VITALS: BP 117/74; PULSE 74; RESP 15; TEMP 36.7; O2SAT 95
[2024-04-17] VITALS (14 sets, daily range): BP systolic 99–133; BP diastolic 56–76; PULSE 62–83; RESP 12–21; TEMP 36–36.9; O2SAT 93–97; BMI 20.6
[2024-04-17] MEDS: VANCOMYCIN/WATER (PEG) 1 GM/200 ML BAG IVPB (06:41)
[2024-04-17] MEDS: Tiotropium Bromide-Respimat 10 PUFF INH 2 PUFF IH (08:01)
[2024-04-17] MEDS: Budesonide/Formoterol 80/4.5 6.9 GM 60 PUFF INH IH (08:01)
--- NOTE | 2024-04-17 09:27 | PDOC.CMPRO ---
Date of service: 04/17/24 Time of Service: 09:27 Care Management Progress Note Discharge Potential Discharge Needs: PCP F/U Appt and Surgical F/U Appt (Podiatry) Anticipated Barriers to Discharge: Medical Status Patient/Family Education Needs: Review discharge instructions, discuss Ask Me Three Transportation: Private vehicle Plan: Anticipate Robby will be discharged home with new home health services for wound care. He will follow up with his PCP and [employer] [facility] and plan of care and will drive himself home. CM will continue to support Robby and his discharge planning needs. SDOH(Care Management) Screening Will the Patient Participate in the Screening?: Yes Do you worry about having a steady place to live?: no Problems where you live: no known problems In the past 12 months, have you had to go without electric, gas, oil or water in your home?: no Have you or anyone in your house had to go without enough food to eat?: no Has lack of transportation kept you from medical appointments or from doing things needed for daily living?: no Has anyone in your support network made you feel unsafe for any reason?: no
[2024-04-17] MEDS: Normal Saline Flush 10 ML SYR IVP (09:29)
[2024-04-17] MEDS: Lactated Ringers 1,000 ML 100 ML IV (12:11)
--- NOTE | 2024-04-17 12:12 | W.ANESPRE ---
General Info Date of Service Date Performed: 04/17/24 Height: 5 ft 11 in Weight: 67.132 kg Body Mass Index (BMI): 20.6 Surgical Procedure: Operation Date: 04/11/24 12:10 Proposed Procedure Side Surgeon p I&D Foot Right Wendy Trevino DPM Actual Procedure Side Surgeon p I&D Foot Right Wendy Trevino DPM Pre-Op Diagnosis Post-Op Diagnosis Cellulitis Cellulitis Operation Date: 04/17/24 12:10 Proposed Procedure Side Surgeon p Delayed Primary Closure Wendy Trevino DPM Meds Allergies and Home Medications Allergies Allergy/AdvReac Type Severity Reaction Status Date / Time No Known Allergies Allergy Verified 04/10/24 13:38 Home Medication ?Medication ?Instructions ?Recorded albuterol sulfate 2.5 mg/3 mL 1 vial inhalation Q4H PRN #120 01/08/16 (0.083 %) solution for nebulization vials fluticasone fur. 100 mcg-umeclid 1 inh inhalation DAILY 06/23/21 62.5 mcg-vilant 25 mcg inhalat.powder (Trelegy Ellipta) sildenafil 100 mg tablet See Rx Instructions PO DAILY PRN 02/15/22 sexual activity #20 tabs albuterol sulfate 90 mcg/actuation 2 puff inhalation Q4H PRN ##3 11/01/22 aerosol inhaler (ProAir HFA) atorvastatin 80 mg tablet 80 mg PO HS #90 tabs 11/01/22 calcium carbonate [Tums] 1 tab PO DIRECTED PRN dyspepsia 02/09/23 albuterol sulfate 1.25 mg/3 mL 1.25 mg (3 mL) inhalation QID PRN 05/04/23 solution for nebulization shortness of breath or wheezing #180 mL nebulizers (Compact Compressor #1 ea 05/04/23 Nebulizer) acetaminophen 500 mg tablet 1,000 mg PO Q6H PRN 07/06/23 (Tylenol Extra Strength) ibuprofen 200 mg capsule 400 mg PO Q6H PRN 07/06/23 pantoprazole 40 mg tablet,delayed 40 mg PO BID #180 tabs 12/07/23 release dextroamphetamine-amphetamine 20 20 mg PO BID #60 tabs 02/22/24 mg tablet benzonatate 200 mg capsule 200 mg PO TID PRN cough #21 caps 03/20/24 ketorolac 10 mg tablet 10 mg PO Q4H 04/10/24 Current Visit Medications: Current Medications Generic Name Dose Route Start Last Admin Trade Name Freq PRN Reason Stop Dose Admin Acetaminophen 1,000 mg 04/10/24 17:08 04/16/24 20:58 Acetaminophen 500 Mg Tab PO 1,000 mg Q6H PRN PRN Administration Albuterol Sulfate 2 puff 04/10/24 17:08 Albuterol Hfa 8 Gm 60 Puff Inh IH Q4H PRN PRN Atorvastatin Calcium 80 mg 04/10/24 20:00 04/16/24 20:57 Atorvastatin 40 Mg Tab PO 80 mg HS JANUSZ Administration Benzonatate 200 mg 04/10/24 17:08 Benzonatate 200 Mg Cap PO TID PRN PRN cough Budesonide/Formoterol Fumarate 0 puff 04/10/24 20:00 04/17/24 08:01 Budesonide/Formoterol 80/4.5 6.9 Gm 60 Puff Inh IH 2 puffs BID JANUSZ Administration Calcium Carbonate 500 mg 04/10/24 19:59 Calcium Carbonate *Tums* 500 Mg Chew PO Q3H PRN PRN dyspepsia Device 1 each 04/10/24 17:08 Inhaler, Assist Device MC DIRECTED [facility] Docusate Sodium 100 mg 04/14/24 14:00 04/17/24 07:45 Docusate Sodium 100 Mg Cap PO Not Given TID [facility] Vancomycin/PEG/NADA/Lysine/Water 1 gm in 200 mls @ 133.333 mls/hr 04/12/24 18:00 04/17/24 06:41 Vancocin Injection IVPB 134 mls/hr Q12H JANUSZ Administration IV Miscellaneous Supplies 1 each 04/11/24 10:00 Iv Access IV DIRECTED [facility] Ketorolac Tromethamine 15 mg 04/13/24 09:11 04/15/24 11:48 Ketorolac 15 Mg/Ml Vial IVP 04/18/24 09:10 15 mg Q6H PRN PRN Administration Lorazepam 1 mg 04/14/24 12:49 04/16/24 20:58 Lorazepam 1 Mg Tab PO 1 mg HS PRN PRN Administration Lorazepam 1 mg 04/15/24 12:20 Lorazepam 1 Mg Tab PO BID PRN PRN Melatonin 9 mg 04/15/24 20:00 04/16/24 20:58 Melatonin 3 Mg Tab PO 9 mg HS JANUSZ Administration Nicotine 21 mg 04/11/24 08:30 04/17/24 07:45 Nicotine 21 Mg/24 Hr Patch TD Not Given DAILY JANUSZ Oxycodone HCl 10 mg 04/13/24 09:12 04/16/24 12:01 Oxycodone 5 Mg Tab PO 10 mg Q4H PRN PRN Administration Pantoprazole Sodium 40 mg 04/10/24 20:00 04/17/24 07:45 Pantoprazole 40 Mg Tabcr PO Not Given BID@0730,1999 JANUSZ Polyethylene Glycol 17 gm 04/14/24 12:40 04/17/24 07:46 Polyethylene Glycol 3350 17 Gm Packet PO Not Given DAILY JANUSZ Sodium Chloride 0 ml 04/10/24 20:00 04/17/24 09:29 Normal Saline Flush 10 Ml Syr IVP 10 ml BID JANUSZ Administration Sodium Chloride 0 ml 04/10/24 14:22 Normal Saline 10 Ml Vial IJ DIRECTED PRN Sodium Chloride 0 ml 04/10/24 14:22 04/14/24 06:14 Normal Saline Flush 10 Ml Syr IVP 10 ml PRN PRN Administration Sodium Hypochlorite 473 ml 04/11/24 17:00 Dakin's Solution 0.25% 473 Ml Btl TP DIRECTED JANUSZ Tiotropium [place] 2 puff 04/11/24 08:30 04/17/24 08:01 Tiotropium [place]-Respimat 10 Puff Inh IH 2 puffs DAILY JANUSZ Administration PFSH Active Problems Active Problems: Problem Status Onset Code Discharge planning issues Acute Z75.8 Insomnia Acute G47.00 Hypomagnesemia Resolved E83.42 Cellulitis and abscess of foot Acute L03.119, L02.619 Cellulitis Acute L03.90 Contusion of right foot Acute S90.31XA Hematoma of right foot Acute S90.31XA Abscess of right foot Acute L02.611 Necrosis Acute I96 Foot pain, right Acute M79.671 Right foot infection Acute L08.9 Acute foot pain Acute M79.673 Hyperplastic colon polyp Acute ~23 K63.5 Abdominal pain Acute R10.9 Chest pain Acute R07.9 Dyspnea Acute R06.00 Dyspepsia Acute R10.13 Nicotine dependence, cigarettes, uncomplicated Acute F17.210 Blunt chest trauma Acute S29.8XXA Painful respiration Acute R07.1 Travis angioma Acute D18.01 Seborrheic keratoses Acute L82.1 Depressive disorder Chronic 06/26/13 F32.9 Major depressive disorder, single episode, moderate Chronic F32.1 Depression Chronic 10/11/17 F32.9 Colorectal polyps Acute K63.5 Anxiety Acute 03/23/18 F41.9 Chronic obstructive lung disease Acute 06/26/13 J44.9 Gastroesophageal reflux disease Acute 06/26/13 K21.9 Male erectile disorder Acute 06/26/13 N52.9 Osteoarthritis of knee Acute 06/26/13 M17.10 SOB (shortness of breath) Acute 01/09/18 R06.02 Tobacco dependence Acute 06/26/13 F17.200 Elevated cholesterol Chronic E78.00 Colonoscopy refused Chronic Z53.20 Cough Acute R05 Post-traumatic stress disorder Acute F43.10 Loss of height Acute SANCHEZ (dyspnea on exertion) Acute R06.09 Weight loss Acute R63.4 ADD (attention deficit disorder) Acute F98.8 Surgical History Surgical History History of colonoscopy (~07/2023) path sent Hx of total knee arthroplasty Left EGD - MAC (02/2023) EGD 02/03/2018 CT/head/brain w/wo contrast (01/25/18) done at [facility] 01/25/18. report in scanning Tobacco Smoking/Tobacco Use Status: Current every day Tobacco Type: cigarettes Smoking cigarettes per day: 10 Alcohol Alcohol Intake: former Substance Use Substance use: Current Sobriety Substance use type: does not use Details: Sober since 1989 Vital Signs and Lab Results Vital Signs Most Recent Vital Signs in EMR: Most Recent Vital Signs Temp Pulse Resp BP Pulse Ox 36.9 C 66 18 133/76 97 04/17/24 11:46 04/17/24 11:46 04/17/24 11:46 04/17/24 11:46 04/17/24 11:46 Lab Results 04/16/24 06:59 04/16/24 06:59 Blood Type / Crossmatch: No Data to Display Complete Blood Count: White Blood Count 7.31 10^3/uL (4.4-10.8) 04/16/24 06:59 Red Blood Count 3.52 10^6/uL (4.36-5.78) L 04/16/24 06:59 Hemoglobin 11.1 g/dL (13.5-17.5) L 04/16/24 06:59 Hematocrit 33.6 % (40.0-50.0) L 04/16/24 06:59 Platelet Count 226 10^3/uL (130-400) 04/16/24 06:59 Complete Metabolic Panel: Sodium 141 mmol/L (136-145) 04/16/24 06:59 Potassium 4.5 mmol/L (3.5-5.1) 04/16/24 06:59 Chloride 104 mmol/L (98-107) 04/16/24 06:59 Carbon Dioxide 28.1 mmol/L (21.0-32.0) 04/16/24 06:59 BUN 21 mg/dL (7-18) H 04/16/24 06:59 Creatinine 1.2 mg/dL (0.70-1.30) 04/16/24 06:59 Est GFR (CKD-EPI 2020) 65.06 (mL/min/1.73m2) 04/16/24 06:59 Magnesium 1.8 mg/dL (1.8-2.4) 04/13/24 06:36 Calcium 8.9 mg/dL (8.5-10.1) 04/16/24 06:59 Albumin 3.7 g/dL (3.4-5.0) 04/10/24 13:55 Glucose 92 mg/dL (74-106) 04/16/24 06:59 C-Reactive Protein 3.99 mg/dL (<or=0.5) H 04/12/24 06:03 Liver Function Panel: Alanine Aminotransferase (ALT/SGPT) 25 U/L (16-63) 04/10/24 13:55 Aspartate Amino Transf (AST/SGOT) 20 U/L (15-37) 04/10/24 13:55 Coagulation Panel: No Data to Display Cardiac Panel: Troponin I < 50 ng/L (< or =60) 04/10/24 Arterial Blood Gas: No Data to Display Venous Blood Gas: No Data to Display Pancreas Panel: No Data to Display Thyroid Panel: No Data to Display Infectious Disease: No Data to Display Blood Cultures: No Data to Display Toxicology Panel: No Data to Display Imaging and Studies Imaging and Studies Study information below may be from another EMR and interpreted by another provider. Please see original notes in EMR for more complete details. EKG Summary: DATE/TIME OF SERVICE: 08/04/22 0933 : 1955ERFORMING LOCATION: [facility] APPROVED REPORT Exam: Resting ECG Reason for Exam: chest pain Patient Location: O HR:89 bpm ECG Measurements Heart Rate 89 AXIS NJ 140 P 79 QRSd 104 QRS 82 QT 366 T63 QTc 446 Conclusion Sinus rhythm...normal P axis, V-rate 50- 99 Borderline right axis deviation...QRS axis ( 81, 90) Minimal ST elevation, anterior leads...ST >0.10mV, V1-V4 Stress Test Summary: 08/24/22:Stress ECG Conclusion 1. The resting electrocardiogram was within normal limits 2. Patient exercised on the Chay protocol and completed a workload of 10.17 METS, limited by fatigue. 3. Normal heart rate and blood pressure response to exercise. Patient achieved 96% of predicted heart rate for age 4. There was no electrocardiographic evidence of myocardial ischemia 5. There were no significant dysrhythmias Connor Treadmill Score is 8.1 which is Low risk. Echocardiogram Summary: Date of Exam: 08/13/22Sex: M Admission Date: 08/13/22 : 1955 Age: 66 APPROVED REPORT EXAM: Comprehensive 2D, Doppler, and color-flow Echocardiogram Patient Location: Out-Patient [employer] Operator: Kary Chamorro RDCS (AE) Indications: non exertional chest pain Other Information Study Quality: Fair. Technically limited study due to body habitus smoker. Conclusion Normal left ventricular wall thickness and chamber size. Estimated ejection fraction is 55%. Wall motion appears normal Normal right ventricular size and systolic function Both atria are normal in size There is no structural or hemodynamically significant valvular disease Pulmonary Function Summary: DATE OF SERVICE: December 24, 2015 PRIMARY CARE PROVIDER: Beryl Gardner NP INTERPRETATION OF STUDY: Spirometry shows mild obstructive airways disease with no significant bronchodilator response. LUNG VOLUMES: Show no evidence of restriction. DIFFUSION CAPACITY: Moderately reduced even when corrected to alveolar volume. AIRWAYS RESISTANCE: Poorly conducted; test cannot be interpreted. IMPRESSION: Mild obstructive airways disease with no significant bronchodilator response. This is associated with moderate diffusion defect. Clinical correlation recommended. Anesthesia Assessment and Plan Anesthesia History Personal History: No History of Anesthesia Complications Family History: No Family History of Anesthesia Complications Exercise Tolerance Exercise Tolerance: Metabolic Equivalents>4 Pertinent Negatives Pertinent Negatives: No Symptoms of GERD Cardiac & Pulmonary Exam Cardiac Exam: Normal S1/S2 Heart Sounds Pulmonary Exam: Clear Bilateral Breath Sounds Implantable Cardiac Device Does patient have a Pacemaker or an ICD?: No Airway Exam Known Difficult Airway: No Mallampati Class: 1 Mouth Opening: Normal (> 3cm) Thyromental Distance: Less than 3 cm Neck Range of Motion: Full ROM Neck Circumference: Normal Teeth Condition: Removable Dentures/Plates Upper, Removable Dentures/Plates Lower and Edentulous ASA Classification ASA Score: ASA 2 Emergency Case?: No NPO Status NPO Status: NPO Clears >2 hours, Solids >8 hours Anesthesia Plan Resuscitation Status: Full Code Anesthesia Technique: General Anesthesia Airway Planned: Natural Airway Monitors Used: Standard Monitors
[2024-04-17] MEDS: Lidocaine 1% Pres-Free 30 ML VIAL (12:21)
--- NOTE | 2024-04-17 12:55 | ROE_ITS ---
Date of service: 04/17/24 Time of Service: 12:00 Operative Note Operative Note DATE OF PROCEDURE: 04/11/24 PRE-OP DIAGNOSIS: Abscess, left foot POST-OP DIAGNOSIS: same PROCEDURE: Incision and drainage with debridement of necrotic tissue, right foot SURGEON: Wendy Trevino ANESTHESIA TYPE: Local By Surgeon (10 mL 1% lidocaine plain preop) Refer to Anesthesia Record ESTIMATED BLOOD LOSS: 5 PATHOLOGY: other (Soft tissue cultures, right foot) TOURNIQUET TIME: 0 Patient was transported to: PACU Patient's condition: stable Indications: 68-year-old male patient with abscess to the right foot. Patient received an OR incision and drainage with debridement of the abscess recently. Patient was noted to have no further purulence and the decision was made for delayed primary closure of the right foot. Findings: Incision site extending to the webspace with no purulence no malodor Procedure Description: Patient was identified in preop holding. Site was marked. Consent form was signed and reviewed in chart. Patient was brought to the operating room placed on the operating table in supine position. After induction of general anesthesia 10 mL of lidocaine plain was infiltrated along the incision site to the right fourth interspace. The right lower extremity was then scrubbed, prepped, and draped in the usual aseptic manner. Using a sterile #15 blade, all necrotic, nonviable tissue was debrided excisionally passed from the operative field. The undermining medially which was noted on the fourth metatarsal area was debrided and curettaged using a sterile curette. The incision site was then flushed with copious amounts of sterile saline. The incisions site was then reapproximated using 3-0 Prolene with simple interrupted sutures with alternating vertical mattress to prevent tension. The incision site was then dressed with Betadine soaked 4 x 4, Kerlix and an Paul wrap. Patient is to keep the right foot dressing clean, dry and intact. Patient is to keep the right lower extremity elevated at all times. He may use crutches or knee scooter or walker for ambulation. Patient will follow- up with me in office within 1 week of discharge.
--- NOTE | 2024-04-17 13:34 | W.ANESPOSTOP ---
Postoperative Evaluation Date, Time and Location Date Performed: 04/17/24 Time Performed: 13:34 Patient Location: Med/Surg Vital Signs Most Recent Imported Vital Signs: Most Recent Vital Signs Temp Pulse Resp BP Pulse Ox 36.6 C 62 13 113/57 L 94 04/17/24 13:20 04/17/24 13:11 04/17/24 13:11 04/17/24 13:11 04/17/24 13:11 Most Recent Vital Signs Temp Pulse Resp BP Pulse Ox 36.6 C 64 11 L 132/70 97 04/11/24 13:51 04/11/24 13:51 04/11/24 13:51 04/11/24 13:51 04/11/24 13:51 Pain Score Most Recent Pain Score: Most Recent Pain Score Pain Level [Right Foot] 1 04/13/24 19:50 Pain Level 0 04/17/24 13:20 Assessment Mental Status: Awake (Alert & Oriented to Patient Baseline) Airway and Respiratory Function: Patent airway with normal (patient baseline) respiratory exam Cardiovascular Function: Hemodynamically Stable Hydration Status: Adequately Hydrated Nausea & Vomiting: No Nausea or Vomiting Pain: Pt. Denies Any Pain Peripheral Nerve Block: Patient did not receive a nerve block
[2024-04-17] MEDS: Acetaminophen 500 MG TAB 1000 MG PO (13:59)
[2024-04-17] MEDS: Docusate Sodium 100 MG CAP PO (14:41)
--- NOTE | 2024-04-17 14:45 | DSE_ITS ---
Date of service: 04/17/24 Time of Service: 14:45 DS: Diagnosis Discharge Diagnosis (1) Cellulitis and abscess of foot: Status: Acute (2) Chronic obstructive lung disease: Status: Acute (3) Tobacco dependence: Status: Acute (4) Insomnia: Status: Acute (5) Hypomagnesemia: Status: Resolved (6) Discharge planning issues: Status: Acute Discharge Plan Disposition Patient Disposition: Home Condition: Improving Discharge Details Reason For Visit: Cellulitis Admit Date/Time: 04/10/24 16:20 Admit Provider: Anil Nazario Attending Provider: Anil Nazario Primary Care Provider: Renae Portillo Hospital Course Hospital Course: Reason for Admission: 68-year-old male with a history of well-controlled COPD and tobacco dependence, presenting with worsening redness, swelling, and pain in the right foot for the past 2 weeks. Patient was initially evaluated at an outside emergency department and referred for further evaluation and management. Hospital Course: 04/10/2024: * Initial Evaluation: Patient presented with progressive pain, swelling, and erythema localized to the right dorsal foot. MRI indicated an abscess involving the third and fourth interspaces of the right foot. * Treatment: Patient was started on intravenous antibiotics (vancomycin and cefepime). Plan was to proceed with OR debridement the following morning. * Status: Patient was hemodynamically stable, afebrile, and alert. No fever or chills noted. 04/11/2024: * Surgical Procedure: The patient underwent an incision and drainage procedure with debridement of the abscess in the right foot. The abscess extended to the dorsal aspect of the third and fourth metatarsal heads. Expressed seropurulent material. Necrotic tissue removed with sterile rongeurs; tissue specimens sent to pathology; cultures taken. Dressings applied with Betadine-soaked packing gauze, ABD pad, Kerlix, and Paul wrap. 04/17/2024: * Follow-Up Procedure: Delayed primary closure of the right foot was performed. No further purulence or malodor noted. Necrotic tissue was excised and the incision was closed with 3-0 Prolene sutures. Additional necrotic tissue removed. Incision closed with simple interrupted sutures and vertical mattress stitches. Applied Betadine-soaked 4 x 4, Kerlix, and Paul wrap. Discharge Instructions: * Medications: * Continue oral antibiotics as prescribed. Linezolid 600 mg twice a day for 7 days. * Use nicotine replacement therapy as needed while hospitalized. * Wound Care: * Keep the surgical site clean, dry, and intact. * Elevate the right foot to reduce swelling. * Activity: * Use crutches, knee scooter, or walker for ambulation. * Avoid weight-bearing on the affected foot. * Follow-Up: * Schedule an outpatient follow-up appointment with podiatry within 1 week of discharge. * Contact Information: * Contact the podiatry office if there are any signs of infection (increased redness, swelling, or drainage), fever, or if you have any questions or concerns. Home Meds and New Rx's Prescriptions: New linezolid [Zyvox] 600 mg tablet 600 mg PO BID Qty: 14 0RF Continued sildenafil 100 mg tablet See Rx Instructions PO DAILY PRN (Reason: sexual activity) Qty: 20 5RF Rx Instructions: 1/2 to 1 tab orally daily PRN; administer 30 minutes to 4 hours before activity atorvastatin 80 mg tablet 80 mg PO HS Qty: 90 3RF albuterol sulfate [ProAir HFA] 90 mcg/actuation HFA aerosol inhaler 2 puff Inhalation Q4H PRN Qty: 3 3RF calcium carbonate [Tums] 1 tab PO DIRECTED PRN (Reason: dyspepsia) (DME) nebulizers [Compact Compressor Nebulizer] Misc See Rx Instructions .Route Qty: 1 0RF Rx Instructions: Use QID as directed for SOB/wheeze albuterol sulfate 1.25 mg/3 mL solution for nebulization 1.25 mg inhalation QID PRN (Reason: shortness of breath or wheezing) Qty: 180 6RF pantoprazole 40 mg tablet,delayed release (DR/EC) 40 mg PO BID Qty: 180 3RF Trelegy Ellipta 100-62.5-25 mcg blister with device 1 inh inhalation DAILY acetaminophen [Tylenol Extra Strength] 500 mg tablet 1,000 mg PO Q6H PRN ibuprofen 200 mg capsule 400 mg PO Q6H PRN benzonatate 200 mg capsule 200 mg PO TID PRN (Reason: cough) Qty: 21 0RF albuterol sulfate 2.5 MG/3 ML solution for nebulization 1 vial Inhalation Q4H PRN Qty: 120 Rx Instructions: 0.083% Dr Suh Changed ketorolac 10 mg tablet 10 mg PO Q6H Qty: 20 0RF Patient Comments: TAKE 1 TABLET BY MOUTH FOUR TIMES DAILY NEEDED FOR PAIN. NOT TO EXCEED 40 MG DAILY AND 5 DAYS DURATION FOR ALL DOSE FORMS Held dextroamphetamine-amphetamine 20 mg tablet 20 mg PO BID MDD 40mg Qty: 60 0RF Hold Instructions: Resume on 05/14/24. Hold while taking Zyvox Rx Instructions: administer doses at least 4-6 hours apart Discharge Instructions Instructions: Linezolid, Cellulitis (skin infection) in adults - Discharge instructions Additional Instructions: Take Linezolid twice a day for 14 days. Do not take adderal while taking Linezolid. Take Ketorolac for pain, do not take ibuprofen at the same time. Wear boot per podiatry. no weight bearing. May use crutches or knee scooter or walker for ambulation. Do not change the dressing - be sure to keep the dressing dry. Follow up with Dr Trevino as planned in one week. Stand Alone Forms: Nursing Discharge Form Referrals: Renae Portillo WATER TEAM LEADER [Primary Care Provider] - (Please call the office to set up a hospital follow up within 7-10 days. The office has your information and may call you. ) Wendy Trevino DPM [[facility] STAFF PHYSICIAN] - (Please call the office to set up an appointment in 7 days. I left a message with the office, they may call you. ) Activity:: Activity as Tolerated Equipment/Supplies:: Crutches Diet:: As Tolerated Discharge Orders Discharge Orders: Discharge Order (Routine); Ordered 04/17/24 Ordered By: Mary Sampson Discharge Data Discharge Date/Time-TO BE ENTERED AT DEPARTURE: 04/17/24 16:55 DS: Summary Time Spent with Patient providing and/or coordinating discharge services: Greater than 30 minutes Status at Discharge Functional status at discharge: uses cane/walker Overall status at discharge: patient is progressing back to baseline Mental Status: mental status grossly normal Speech and Movement: speech and movement normal Mood: congruent mood Affect: normal affect Quality:SDOH Health Related Social Needs: No Data to Display Exam Narrative Exam Narrative: Thin older appearing than stated age, in no acute distress skin is ashen warm dry is well-perfused facial features symmetrical eye appearance normal oral mucosa moist neck is supple full range of motion respirations are even and unlabored cardiovascular regular rate and rhythm abdomen benign he has a dressing to his right lower extremity toes visualized minimal edema no erythema proximally or distally to the Paul wrap. He has full range of motion of his toes sensations intact they are warm. Psych Mental Status: mental status grossly normal Speech and Movement: speech and movement normal Mood: congruent mood Affect: normal affect DS: Data Vitals/I&O Vitals and I&O: Vital Signs Temperature 36.0 C L 04/17/24 13:59 Temperature Source Temporal Artery Scan 04/17/24 13:59 Pulse 62 04/17/24 13:59 Pulse Rhythm Regular 04/17/24 14:04 Pulse 64 04/17/24 13:11 Respiratory Rate 16 04/17/24 13:59 Respiratory Effort Normal, Non-Labored 04/17/24 14:04 Respiratory Depth Normal 04/17/24 14:04 Respiratory Pattern Normal 04/17/24 14:04 Blood Pressure 130/60 04/17/24 13:59 Blood Pressure Mean 72 04/17/24 13:11 Blood Pressure Position Sitting 04/10/24 16:08 Pulse Oximetry 97 04/17/24 13:59 Respiratory End-tidal CO2 24 04/17/24 13:11 Oxygen Delivery Method Room Air 04/17/24 13:59 Oxygen Flow Rate 0 04/17/24 13:59 Fraction of Inspired Oxygen (FIO2) 97 04/10/24 17:13 Pain Level 5 04/17/24 13:59 Comment did not want to be woken up at 3am for vitals 04/16/24 04:11 Intake & Output 04/16/24 04/17/24 04/17/24 23:59 11:59 23:59 Intake Total 210 / 1010 250 / 250 Output Total 300 / 600 Balance -90 / 410 250 / 250 Weight 67.132 kg Intake: IV 210 / 610 250 / 250 Output: Urine 300 / 600 Other: Urine Color Yellow Urine Appearance Clear Clear Clear Comment Patient voids independently. Stool Size Small Stool Characteristics Formed Emesis Description None Voiding Methods Toilet Toilet Data Completed and Pending Labs on day of discharge: Preliminary micro results at discharge 04/11/24 12:45 Anaerobic Culture - Preliminary Foot - Right 04/11/24 12:45 Surgical Culture - Preliminary Foot - Right Staph aureus, MRSA 04/11/24 12:45 Surgical Culture - Preliminary Foot - Right Staph aureus, MRSA 04/11/24 12:36 Anaerobic Culture - Preliminary Foot - Right PFSH All Active Problems (Updated 04/17/24 @ 14:24 by Mary Sampson NP) Discharge planning issues (Acute) Insomnia (Acute) Cellulitis and abscess of foot (Acute) Cellulitis (Acute) Contusion of right foot (Acute) Hematoma of right foot (Acute) Abscess of right foot (Acute) Necrosis (Acute) Foot pain, right (Acute) Right foot infection (Acute) Acute foot pain (Acute) Hyperplastic colon polyp (Acute ~08/25/23) Abdominal pain (Acute) Chest pain (Acute) Dyspnea (Acute) Dyspepsia (Acute) Nicotine dependence, cigarettes, uncomplicated (Acute) Decreased use, 03/2024, ik Blunt chest trauma (Acute) Painful respiration (Acute) Travis angioma (Acute) Seborrheic keratoses (Acute) Depressive disorder (Chronic 06/26/13) Major depressive disorder, single episode, moderate (Chronic) Depression (Chronic 10/11/17) Colorectal polyps (Acute) Anxiety (Acute 03/23/18) Chronic obstructive lung disease (Acute 06/26/13) PFT 2010: FEV1/FVC 3.61/5.13, 70% predicted Gastroesophageal reflux disease (Acute 06/26/13) Male erectile disorder (Acute 06/26/13) Osteoarthritis of knee (Acute 06/26/13) S/P (L) TKR SOB (shortness of breath) (Acute 01/09/18) Tobacco dependence (Acute 06/26/13) Elevated cholesterol (Chronic) Colonoscopy refused (Chronic) Cough (Acute) Post-traumatic stress disorder (Acute) Loss of height (Acute) SANCHEZ (dyspnea on exertion) (Acute) Weight loss (Acute) ADD (attention deficit disorder) (Acute) Surgical History History of colonoscopy (~07/2023) path sent Hx of total knee arthroplasty Left EGD - MAC (02/2023) EGD 02/03/2018 CT/head/brain w/wo contrast (01/25/18) done at [facility] 01/25/18. report in scanning Family History Father Myocardial infarction Mother No problems noted. Social History Smoking/Tobacco Use Status: Current every day Tobacco Type: cigarettes Tobacco: How many years used: 58 Smoking risk assessment performed?: Yes Alcohol Intake: former Drug use: Current Sobriety Substance use type: does not use Details: Sober since 1989 Household members: none Housing: house Number of Children: 4 Pets and animals: Yes Pets and animals: dog(s) Current gender identity: male What type of physical activity do you participate in: none and walking Duration: 15-30 minutes/day Frequency: daily Do you feel safe at home: Yes (Lives alone) Additional Social history: lives alone Time Spent with Patient Time Spent with Patient: 45-69 minutes Time was spent: preparing to see the patient(eg.review tests), ordering medications,tests, procedures, referring, communicating with other health health care social worker, indepentently interpreting results, counseling the patient and care coordination
[2024-04-17] MEDS: Linezolid 600 MG TAB PO (16:52)
[2024-04-17] MEDS: Ketorolac 10 MG TAB PO (16:52)
--- NOTE | 2024-04-17 17:21 | PDOC.CMDIS ---
Date of service: 04/17/24 Time of Service: 17:21 LACE Index Scoring Tool Questions: Length of Stay (in days): 7 - 13 Was the patient admitted via the E.D.?: Yes Comorbidities: Chronic Pulmonary Disease E.D. Visits: 1 Answers: Total Score: 11 Risk of Readmission: High Risk Care Management Discharge Plan Reason for Hospitalization: cellulitis Discharge Plan: Robby will be discharged home with no new services. He will transport with his son and follow up with his surgeon and PCP. Patient/Family Education Needs: Review discharge instructions, discuss Ask Me Three [facility] Health Related Social Needs: No Data to Display
== END 2024-04-17 16:55 | disposition home or self-care (01) | DRG 571 ==
LOC: ER 16:08 → MS 17:07
PROVIDERS: Nurse Practitioner Acute Care; Nurse Practitioner Family; Podiatrist; Admitting Provider Family Medicine; Emergency Provider Emergency Medicine; PCP Nurse Practitioner; Visit Provider Family Medicine
PROC: 0JBQ0ZZ Excision of Right Foot Subcutaneous Tissue and Fascia, Open Approach (ICD-10-PCS; CPT 11043; principal; 2024-04-11 12:00)
PROC: 0J9Q0ZZ Drainage of Right Foot Subcutaneous Tissue and Fascia, Open Approach (ICD-10-PCS; CPT 11043; principal; 2024-04-17 12:00)
DX: L02.611 Cutaneous abscess of right foot (principal); F32.1 Major depressive disorder, single episode, moderate; L03.115 Cellulitis of right lower limb; J43.2 Centrilobular emphysema; B95.62 Methicillin resistant Staphylococcus aureus infection as the cause of diseases classified elsewhere; S90.31XA Contusion of right foot, initial encounter; F17.210 Nicotine dependence, cigarettes, uncomplicated; E83.42 Hypomagnesemia; G47.00 Insomnia, unspecified; X50.3XXA Overexertion from repetitive movements, initial encounter; Y93.01 Activity, walking, marching and hiking; F41.9 Anxiety disorder, unspecified; K21.9 Gastro-esophageal reflux disease without esophagitis; Z96.652 Presence of left artificial knee joint; E78.00 Pure hypercholesterolemia, unspecified; F43.10 Post-traumatic stress disorder, unspecified
CPT/HCPCS: 11043 ×2; 10061 ×2; 00123; 36410; 36415; 80048; 80053; 85652; 87040; 87077; 90471; 90715; 94640; 96365; 96375; 97162; 97530; 99214; 99222; 99285; 73630; 73720; 80202; 83735; 84484; 85025; 86140; 87070; 87075; 87186; 87205; 94664; 99223; 99231; 99232; 99233; 99239; J0692; J1885; J2001; J2405; J2704; J3010; J3372; J3475

== ENCOUNTER → 2024-05-03 08:25 | Outpatient (BNVA) | payer MEDICARE, SELFPAY | PROVIDERS: PCP Nurse Practitioner; Referring Provider Nurse Practitioner; Visit Provider Podiatrist | DX: Z98.890 Other specified postprocedural states (principal); L02.611 Cutaneous abscess of right foot; L03.115 Cellulitis of right lower limb | CPT/HCPCS: 99024 ==

== ENCOUNTER → 2024-05-16 09:42 | Outpatient (BNVA) | payer MEDICARE, SELFPAY | PROVIDERS: PCP Nurse Practitioner; Referring Provider Nurse Practitioner; Visit Provider Podiatrist | DX: Z98.890 Other specified postprocedural states (principal); L02.611 Cutaneous abscess of right foot; L03.115 Cellulitis of right lower limb | CPT/HCPCS: 99024 ==

== ENCOUNTER → 2024-06-14 08:59 | Outpatient (BNVA) | payer MEDICARE, SELFPAY | PROVIDERS: PCP Nurse Practitioner; Referring Provider Nurse Practitioner; Visit Provider Podiatrist | DX: Z98.890 Other specified postprocedural states (principal); L03.115 Cellulitis of right lower limb; L02.611 Cutaneous abscess of right foot | CPT/HCPCS: 99024 ==

== ENCOUNTER 2024-06-18 00:39 | Outpatient (CLI) | payer MEDICARE, SELFPAY ==
--- NOTE | 2024-06-18 06:45 | DI.CTLCSR_ITS ---
Exam(s) CT CHEST LUNG CANCER SCREEN EXAM: CT CHEST LUNG CANCER SCREEN CLINICAL HISTORY: Screening for lung cancer,current smoker, f17.210 TECHNIQUE: Imaging Protocol: Axial computed tomography images with coronal and sagittal reformatted images were created and reviewed COMPARISON: CT CT CHEST LOW DOSE CA SCREENING from 08/10/[address] CHEST PE CTA from 06/23/2023 FINDINGS: Tracheobronchial tree: Patent where visualized. No bronchiectasis. Pulmonary parenchyma: There is a new area of consolidation in the anterolateral aspect of the left up per lobe. Calcified granuloma are present. There is scarring in the lung apices which appears stabl e. Mild pulmonary emphysematous changes are present. Lung Nodules: There are stable nodule seen in the lungs. The nodule seen in the posterior aspect of the left lower lobe are stable. No new pulmonary nodules are seen. Mediastinum and Di: No dominant adenopathy or fluid collection. The esophagus is unremarkable. Thyroid gland: Unremarkable. Lymph nodes: Unremarkable. Pleura: No effusion or pneumothorax. Heart: The heart is not dilated. Coronary artery calcifications are present. No pericardial effusion . Aorta: Thoracic aorta non-dilated.Atherosclerotic calcification is present. Upper abdomen: Unremarkable. Soft Tissues: Unremarkable. Bones: Within normal limits. IMPRESSION: 1. No new pulmonary nodules. 2. New infiltrate in the anterolateral aspect of the left upper lobe. This may represent atelectasis or pneumonia. Please correlate clinically. Lung RADS Cat 2S - Benign Appearance / Behavior: Nodules with a very low likelihood of becoming a cli nically active caner due to size or lack of growth. Other: Clinically Significant or Potentially Clin ically Significant Findings (non lung cancer) Lung-RADS 1.0 CATEGORIES: Category 0 - Prior chest CT exam(s) being located for comparison. Category 1 - Annual screening in 12 months. No nodules or definitely benign nodules. Category 2 - Annual screening in 12 months. Benign appearance. Nodules with low likelihood of becomin g active cancer. Category 3 - 6-month follow-up. Probably benign. Short-term follow-up suggested. Nodules with low lik elihood of becoming active cancer. Category 4A - 3-month follow-up and CT/PET if >8 mm in size. Suspicious finding. Findings which requi re additional testing. Category 4B - Findings which require additional testing and tissue sampling. Suspicious finding. Category 4X - Category 3 or 4 nodules with additional features or imaging findings that increases the suspicion of malignancy. Modifier S- Potentially clinically significant finding. (Non lung cancer) Unexpected findings RADIATION DOSE DELIVERED: 28.63mGy.cm Total DLP 28.63mGy.cmTotal DLP DATA REPOSITORY: All CT scans at this facility are submitted to the National Radiology Data Registry (NRDR) Dose Index Registry (DIR) with the [employer] (ACR). RADIATION OPTIMIZATION: All CT scans at this facility use at least one of these dose optimization te chniques: automated exposure control; mA and/or kV adjustment per patient size (includes targeted exa ms where dose is matched to clinical indication); or iterative reconstruction.
== END 2024-06-18 00:59 ==
LOC: DI 00:39
PROVIDERS: PCP Nurse Practitioner; Visit Provider Physician Assistant Surgical
DX: F17.210 Nicotine dependence, cigarettes, uncomplicated (principal); Z12.2 Encounter for screening for malignant neoplasm of respiratory organs; R91.8 Other nonspecific abnormal finding of lung field
CPT/HCPCS: 71271

== ENCOUNTER 2024-07-09 00:52 | Outpatient (CLI) | payer MEDICARE, SELFPAY ==
--- NOTE | 2024-07-09 06:45 | DI.NM_ITS ---
APPROVED REPORT Exam: Exercise Treadmill Patient Location: Out-Patient Room/Bed: Stress Nurse: John Jarrell RN and Adam Jung RN Ordering Provider:MEGHNA MONTIEL, Contact Number: [phone] BMI: 20.91 Baseline Rhythm: Sinus Rhythm. Comment: Occasional PVC's. Indications: Two brothers with AL, one ; Chest Pain; Family Hx of Heart Disease. Medical History Medical History: Anxiety; Depression; Shortness of Breath; Chest Pain; PTSD; ADD; Chronic Obstructive Lung Disease; COPD; Insomnia; Tobacco Dependence; Hyperlipidemia. Cardiac Medications: Albuterol Sulfate; Atorvastatin; Dextroamphetamine; Amphetamine; Trelegy Ellipta ; Pantoprazole; Sildenafil. Allergies: None. Cardiac Risk Factors: Family Hx; Hyperlipidemia; COPD; Current Smoker. Previous Cardiac Procedures: None. Pretest Chest Pain Characteristics: None. Exercise History: Indeterminate. Physical Disabilities: None. Lung Sounds: Diminished in bilateral posterior bases; clear bilaterally throughout otherwise, anterio r and posterior. Heart Sounds: S1 and S2 auscultated. Stress Test Details Test: Exercise stress testing was performed using a Chay protocol. Nuclear Acquisition: Rest Tc-99m/Stress Tc-99m 1 day Rest Isotope: Tc-99m Sestamibi. Dose: 10.0 Date: 07/09/2024 Injection Time: 0845 Stress Isotope: Tc-99m Sestamibi. Dose: 30.0 Date: 07/09/2024 Injection Time: 1014 HR Resting HR Supine: 74 bpm Max Heart Rate (APMHR): 150.408944 bpm Resting HR Standin bpm Target HR (85% APMHR): 127.534867 bpm Max HR Achieved: 141 bpm % of APMHR: 94.00 Recovery HR: 92 bpm HR response to stress: Normal HR response to stress. BP Resting BP Supine: 130/80 mmHg Resting BP Standin/82 mmHg Max BP: 162/78 mmHg Recovery BP: 132/88 mmHg BP response to stress: Normal blood pressure response to stress. ECG Resting ECG: Sinus Rhythm. Ectopy: Occasional PVC's. Stress ECG: Sinus Tachycardia. ST Change: No significant ST segment changes noted. Arrhythmia: Occasional PVC's. Recovery ECG: Sinus Rhythm. Recovery ST Change: No significant ST segment changes noted. Recovery Arrhythmia: Occasional PVC's. Clinical Reason for Termination: Target HR Achieved. Stress Symptoms: None. Exercise duration: 07 min09 sec Highest Stage Reached: Stage 3: 3.4 mph at 14% grade. Exercise capacity: 8.83 METs Angina Score: None Connor Treadmill Score: 6.1 Rate Pressure Product: 96382 Stress ECG Conclusion 1. Resting electrocardiogram was normal 2. Patient exercised on the Chay protocol completed workload of 8.83 METS 3. Normal heart rate and blood pressure response to exercise. The patient achieved 94% of predicted heart rate for age 4. There was no electrocardiographic evidence of myocardial ischemia 5. See MPI report Connor Treadmill Score is 6.1 which is Low risk. Stress Test Summary STAGE Time (mins) Speed (mph) Grade (%) HR BP SpO2 SYMPTOMS METS Supine 74 130/80 93 Standing 92 102/82 95 1 3 1.7 10 111 122/82 92 4.5 2 6 2.5 12 129 142/78 91 7 3 9 3.4 14 141 10 1 min recovery 133 118/58 92 3 min recovery 99 162/78 95 6 min recovery 92 132/88 97 Pt. was conversing pleasantly with nursing staff upon leaving the Stress Lab. Pt. left ambulatory in no apparent distress. MPI Conclusion Myocardial perfusion is normal. There is no ischemia or evidence of prior infarction Calculated EF is 41%. Visually EF appears normal, at least 55% Radiologist Interpretation Radiologist agrees with Slide Fastener Chain Assembler's Interpretation. Radiologist Interpretation by: Dalila Reyes MD Interpretation Date/Time: 07/10/2024 15:34:42
== END 2024-07-09 01:12 ==
PROVIDERS: PCP Nurse Practitioner; Visit Provider Nurse Practitioner
DX: R07.9 Chest pain, unspecified (principal); Z82.49 Family history of ischemic heart disease and other diseases of the circulatory system; J43.2 Centrilobular emphysema
CPT/HCPCS: 78452; 93016; 93018; 93017

== ENCOUNTER → 2024-07-17 09:48 | Outpatient (BNVA) | payer MEDICARE, SELFPAY | PROVIDERS: PCP Nurse Practitioner; Referring Provider Nurse Practitioner; Visit Provider Podiatrist | DX: Z98.890 Other specified postprocedural states (principal); L03.115 Cellulitis of right lower limb; L02.611 Cutaneous abscess of right foot; M20.21 Hallux rigidus, right foot | CPT/HCPCS: 99213 ==

== ENCOUNTER 2024-12-20 16:19 | Outpatient (REF) | payer MEDICARE, SELFPAY ==
--- NOTE | 2024-12-20 07:30 | SKI_PTH ---
PATIENT: Robby Mirza JR LOC: [facility] U#:[id number] AGE/SX: 69/M ROOM: RE12/20/[address]: Ton Lagunas MD : 1955 BED: DIS: 12/20/2024 SPEC #: [id number] RECD: 12/20/24 17:23 STATUS: KORTNEY RESusu #: [id number] VINEET: 12/20/24 07:[address]: Ton Lagunas DEPT: Surgical Specimen RECD BY: Maren Robert ENTERED: 12/20/24 17:24 SP TYPE: KAREEM GUTIERREZ DR: Renae Portillo APRN Tissues: 1 - SKIN BIOPSY(SHAVE/PUNCH) Procedures: SKIN LEVEL 4 Comments: [id number]
== END 2024-12-20 16:20 | disposition home or self-care (01) ==
LOC: LBN 16:19
PROVIDERS: PCP Nurse Practitioner; Visit Provider Otolaryngology
DX: L98.9 Disorder of the skin and subcutaneous tissue, unspecified (principal); C44.319 Basal cell carcinoma of skin of other parts of face
CPT/HCPCS: 88305

== ENCOUNTER → 2025-02-18 09:40 | Outpatient (BNVA) | payer MEDICARE, SELFPAY | PROVIDERS: PCP Nurse Practitioner; Referring Provider Nurse Practitioner; Visit Provider Physician Assistant Surgical | DX: J43.2 Centrilobular emphysema (principal); F17.210 Nicotine dependence, cigarettes, uncomplicated | CPT/HCPCS: 99214; G0296 ==

== ENCOUNTER 2025-04-10 13:54 | Outpatient (CLI) | payer MEDICARE, SELFPAY ==
[2025-04-12 12:39] LABS: HCT 37.3 % (40.0-50.0); HGB 12.9 g/dL (13.5-17.5); MCH 31.0 pg (27.0-33.0); MCHC 34.6 % (32.0-36.0); MCV 90 fL (80-95); MPV 10.7 fL (8.0-11.0); Platelet Count 200 10^3/uL (130-400); RBC 4.16 10^6/uL (4.36-5.78); RDW 11.8 % (11.8-14.1); RDW-SD 38.3 fL; WBC 9.45 10^3/uL (4.4-10.8)
[2025-04-12 13:12] LABS: ALT 18 U/L (16-63); AST 26 U/L (15-37); Albumin 4.1 g/dL (3.4-5.0); Alkaline Phosphatase 146 U/L (46-116); Anion Gap 8.1 mmol/L (3-11); BUN 16 mg/dL (7-18); Bilirubin, Total 0.6 mg/dL (0.2-1.0); CO2 28.9 mmol/L (21.0-32.0); Calcium 9.5 mg/dL (8.5-10.1); Chloride 103 mmol/L (98-107); Estimated GFR 91.31 (mL/min/1.73m2); Glucose 100 mg/dL (74-106); Potassium 4.7 mmol/L (3.5-5.1); Sodium 140 mmol/L (136-145); Total Protein 7.2 g/dL (6.4-8.2)
[2025-04-13 15:04] LABS: Lab Add On Test DONE
[2025-04-13 15:14] LABS: GGT 20 U/L (15-85)
[2025-04-15 11:12] LABS: PSA, Screening 155.2 ng/mL (<=6.5)
== END 2025-04-10 13:55 | disposition home or self-care (01) ==
LOC: LBO 04-25 14:01
PROVIDERS: PCP Nurse Practitioner; Visit Provider Nurse Practitioner Family
DX: R63.4 Abnormal weight loss (principal); Z12.5 Encounter for screening for malignant neoplasm of prostate; R74.8 Abnormal levels of other serum enzymes
CPT/HCPCS: 36415; 80053; 84153; 85027; 82977

== ENCOUNTER → 2025-04-16 14:02 | Outpatient (BNVA) | payer MEDICARE, SELFPAY | PROVIDERS: PCP Nurse Practitioner; Referring Provider Nurse Practitioner; Visit Provider Urology | DX: C61 Malignant neoplasm of prostate (principal); N40.0 Benign prostatic hyperplasia without lower urinary tract symptoms; R39.89 Other symptoms and signs involving the genitourinary system | CPT/HCPCS: 55700; 76872 ==

== ENCOUNTER → 2025-04-18 12:48 | Outpatient (BNVA) | payer MEDICARE, SELFPAY | PROVIDERS: PCP Nurse Practitioner; Referring Provider Nurse Practitioner; Visit Provider Urology | DX: C61 Malignant neoplasm of prostate (principal); R39.89 Other symptoms and signs involving the genitourinary system | CPT/HCPCS: 55700; 76872 ==

== ENCOUNTER 2025-04-18 13:25 | Outpatient (REF) | payer MEDICARE, SELFPAY ==
--- NOTE | 2025-04-18 13:20 | PROST_PTH ---
PATIENT: Robby Mirza JR LOC: [facility] U#:[id number] AGE/SX: 69/M ROOM: RE04/18/[address]: Lisandro De León MD : 1955 BED: DIS: 04/18/2025 SPEC #: [id number] RECD: 04/18/25 16:21 STATUS: KORTNEY RESusu #: [id number] VINEET: 04/18/25 13:[address]: Lisandro De León DEPT: Surgical Specimen RECD BY: Maren Robert ENTERED: 04/18/25 16:23 SP TYPE: PROST OTHR DR: Renae Portillo APRN Tissues: 1 - PROSTATE NEEDLE BIOPSY 2 - PROSTATE NEEDLE BIOPSY 3 - PROSTATE NEEDLE BIOPSY 4 - PROSTATE NEEDLE BIOPSY 5 - PROSTATE NEEDLE BIOPSY 6 - PROSTATE NEEDLE BIOPSY 7 - PROSTATE NEEDLE BIOPSY 8 - PROSTATE NEEDLE BIOPSY 9 - PROSTATE NEEDLE BIOPSY 10 - PROSTATE NEEDLE BIOPSY 11 - PROSTATE NEEDLE BIOPSY 12 - PROSTATE NEEDLE BIOPSY Procedures: GROSS AND MICRO LEVEL 4 Comments: [id number]
== END 2025-04-18 13:26 | disposition home or self-care (01) ==
LOC: LBN 13:25
PROVIDERS: PCP Nurse Practitioner; Visit Provider Urology
DX: C61 Malignant neoplasm of prostate (principal); R97.20 Elevated prostate specific antigen [PSA]
CPT/HCPCS: 88305

== ENCOUNTER → 2025-05-06 14:43 | Outpatient (BNVA) | payer MEDICARE, SELFPAY | PROVIDERS: PCP Nurse Practitioner; Referring Provider Nurse Practitioner; Visit Provider Urology | DX: C61 Malignant neoplasm of prostate (principal) | CPT/HCPCS: 99215 ==

== ENCOUNTER 2025-05-28 10:21 | Outpatient (CLI) | payer MEDICARE, SELFPAY ==
[2025-05-28 10:41] LABS: HCT 39.6 % (40.0-50.0); HGB 13.2 g/dL (13.5-17.5); MCH 30.3 pg (27.0-33.0); MCHC 33.3 % (32.0-36.0); MCV 91 fL (80-95); MPV 10.7 fL (8.0-11.0); Platelet Count 229 10^3/uL (130-400); RBC 4.35 10^6/uL (4.36-5.78); RDW 11.9 % (11.8-14.1); RDW-SD 39.7 fL; WBC 9.46 10^3/uL (4.4-10.8)
[2025-05-28 10:52] LABS: Glucose Negative (Negative)
[2025-05-28 11:01] LABS: C & S Indicated? No; RBC 0-2 HPF (0-2); WBC Negative HPF (0-5)
[2025-05-28 11:28] LABS: ALT 17 U/L (16-63); AST 33 U/L (15-37); Albumin 4.3 g/dL (3.4-5.0); Alkaline Phosphatase 191 U/L (46-116); Anion Gap 8.5 mmol/L (3-11); BUN 16 mg/dL (7-18); Bilirubin, Total 0.5 mg/dL (0.2-1.0); CO2 29.5 mmol/L (21.0-32.0); Calcium 9.5 mg/dL (8.5-10.1); Chloride 100 mmol/L (98-107); Estimated GFR 71.77 (mL/min/1.73m2); Glucose 99 mg/dL (74-106); Potassium 4.4 mmol/L (3.5-5.1); Sodium 138 mmol/L (136-145); Total Protein 7.8 g/dL (6.4-8.2)
== END 2025-05-28 10:22 | disposition home or self-care (01) ==
LOC: LBO 10:21
PROVIDERS: Nurse Practitioner Adult Health; PCP Nurse Practitioner Family; Visit Provider Nurse Practitioner Family
DX: C61 Malignant neoplasm of prostate (principal); R97.20 Elevated prostate specific antigen [PSA]
CPT/HCPCS: 36415; 80053; 85027; 81003; 81015

== ENCOUNTER → 2025-06-07 10:57 | Outpatient (BNVA) | payer MEDICARE, SELFPAY | PROVIDERS: PCP Nurse Practitioner Family; Referring Provider Nurse Practitioner; Visit Provider Urology | DX: C61 Malignant neoplasm of prostate (principal); C79.51 Secondary malignant neoplasm of bone; C77.5 Secondary and unspecified malignant neoplasm of intrapelvic lymph nodes | CPT/HCPCS: 99214 ==